=== PATIENT | female | born 1935 | race Caucasian/White ===

== ENCOUNTER → 2018-12-10 | Outpatient (CLI) | payer MEDICARE ==
--- NOTE | 2018-12-10 15:43 | Diagnostic Imaging Report ---
INDICATION: Back pain for three months. TIME OF EXAM: 3:06 PM FINDINGS: Three views lumbar spine were obtained. Curvature and alignment is normal. Vertebral body heights are well-maintained. No acute compression fracture is seen. There is generalized degenerative disc disease with variable disc space narrowing and marginal spurring. Abdominal aorta is calcified. There are multiple surgical clips in the abdomen. IMPRESSION: No acute bony abnormality is detected. Dictated by: Dictated on workstation # [id number]
== END ==
LOC: RAD FS 14:42
PROVIDERS: ATTEND Surgery
DX: M54.5 Low back pain (principal)
CPT/HCPCS: 72100

== ENCOUNTER → 2018-12-27 | Outpatient (CLI) | payer MEDICARE ==
[~2018-12-27] VITALS: Ht 167 cm; Wt 57.7 kg
[~2018-12-27] MED LIST: ASPI-586 PO; CLOP75TA69 PO; ROSU10TA22 PO
== END | disposition home or self-care (01) ==
LOC: PREOP 05:37
PROVIDERS: ATTEND Surgery
DX: Z01.818 Encounter for other preprocedural examination (principal)

== ENCOUNTER 2019-01-03 08:15 | Day surgery (SDC) | payer MEDICARE ==
[~2019-01-03] VITALS: Ht 167 cm; Wt 57.7 kg
[2019-01-03] MEDS ORDERED: LACTATED RINGERS 1,000 ML IV STA (08:44)
[2019-01-03] MEDS ORDERED: LACTATED RINGERS 1,000 ML IV ONE (08:46)
[2019-01-03 08:56] VITALS: BP 174/78
--- NOTE | 2019-01-03 09:24 | Progress Note-Pre Operative ---
Pre-Operative Progress Note H&P Reviewed The H&P was reviewed, patient examined and no changes noted. Time Seen by Provider: 09:18 Date H&P Reviewed: Jan 03, 2019 Time H&P Reviewed: 09:19 Pre-Operative Diagnosis: screening colonoscopy GEOVANI GRUBER DO Jan 03, 2019 09:23 POS
[2019-01-03] MEDS ORDERED: PROPOFOL INJECTION 50 ML IV ONE (10:56)
[2019-01-03] MEDS ORDERED: MIDAZOLAM 2 MG/2 ML (VERSED) VIAL ONE (10:56)
--- NOTE | 2019-01-03 11:14 | Progress Note-Post Operative ---
Post-Operative Progess Note Surgeon (s)/Supervisor Of Operations (s) Surgeon GEOVANI GRUBER DO Supervisor Of Operations: CHRISTIE Anguiano Pre-Operative Diagnosis screening colonoscopy Post-Operative Diagnosis poor prep int hemorrhoids Procedure & Operative Findings Date of Procedure 01/03/19 Procedure Performed/Findings colonoscopy Anesthesia Type IV sedation by IP ARCHITECT Estimated Blood Loss Estimated blood loss (mL): none Specimens/Packing Specimens Removed none GEOVANI GRUBER DO Jan 03, 2019 11:14 POS
[2019-01-03 11:15] VITALS: BP 168/74
[2019-01-03 11:20] VITALS: BP_SYST 184; BP_SYST 189; BP_DIAS 77
[2019-01-03 11:25] VITALS: BP 189/77
--- NOTE | 2019-01-03 11:26 | Endoscopy Discharge Instruct ---
Endo Procedure/Findings Findings 1.: Internal Hemorrhoids Discharge Instructions - Activity: You might feel a little sleepy until tomorrow. This is due to the me dicine you received to relax you. Until tomorrow, you should: NOT drive a car, operate machinery or power tools. NOT drink any alcoholic beverages. NOT make any important decisions or sign importortant papers. Do not return to work until tomorrow, unless otherwise instructed. Resume previous activities tomorrow. Diet: Start by taking liquids. If you tolerate liquids, advance to solid food. make an appointment for one week 1.: Colonoscopy in 1 year (or less) Notify Physician - If you experience excessive bleeding, unusual abdominal pain, fever, or chest pain, contact your doctor immediately. GEOVANI GRUBER DO Jan 03, 2019 11:26 POS
[2019-01-03 11:50] VITALS: BP 187/76
--- NOTE | 2019-01-03 11:57 | Anesthesia-General Post-Op ---
MAC Patient Condition Mental Status/LOC: Same as Preop Cardiovascular: Satisfactory Nausea/Vomiting: Absent Respiratory: Satisfactory Pain: Controlled Complications: Absent Post Op Complications Complications None Follow Up Care/Instructions Patient Instructions None needed. Anesthesiology Discharge Order Discharge Order Patient is doing well, no complaints, stable vital signs, no apparent adverse anesthesia problems. No complications reported per nursing. UNIQUE MARSHALL CRNA Jan 03, 2019 11:57 POS
[2019-01-03 12:03] VITALS: BP 187/76
--- NOTE | 2019-01-03 14:44 | OPERATIVE REPORT ---
DATE OF SERVICE: PREOPERATIVE DIAGNOSIS: Screening colonoscopy. POSTOPERATIVE DIAGNOSIS: Poor prep. PROCEDURES: Colonoscopy. SURGEON: Abner Collier DO. FLUTE TEACHER: Reese Ayala MS3. SPECIMENS: None. BLOOD LOSS: None. FLUIDS: Per anesthesia. POSTOPERATIVE CONDITION: Stable. INDICATION FOR PROCEDURE: The patient is an 83-year-old female, who needed a screening colonoscopy. FINDINGS: Unfortunately, the patient did not had an incomplete prep, lot of retained fecal material and some thick pieces, unable to clear this out. I will need a repeat colonoscopy within a year or less. PROCEDURE NOTE: After informed consent was obtained, the patient was brought to the endoscopy suite, placed in left lateral decubitus position. She was administered IV sedation by the NARROW GAUGE BRAKEMAN, who then monitored her vitals the entire time, heart rate, blood pressure and pulse ox and the scope was inserted. Immediately upon entry, noted a lot of retained fecal material covering the gonzalez able to wash some of it off and all of it and then could not suction it all up because of large pieces of fecal material, elected to push passes to see if we could get up. There is some clear areas, got up actually all the way to pass the hepatic flexure, but again we got into the ascending colon just a lot of fecal material covering the gonzalez, again could not clear all off and suctioned it all up. So at this point, withdrew the scope, insufflating to attempt to look at the gonzalez, looking at the ascending colon, hepatic flexure, transverse colon, splenic flexure, descending colon, sigmoid and rectum, again just too much retained fecal material. Did see some small hemorrhoids on the way out, took a picture of this and removed the scope. The patient tolerated the procedure, recovered in endoscopy suite. Job ID: [id number] DocumentID: [id number] Dictated Date: 01/03/2019 11:50:05 Amphibian Crewmember Date: 01/03/2019 14:43:49 Dictated By: ABNER COLLIER DO
== END 2019-01-03 12:04 | disposition home or self-care (01) ==
LOC: ENDO 08:15
PROVIDERS: ATTEND Surgery
DX: Z12.11 Encounter for screening for malignant neoplasm of colon (principal); K64.8 Other hemorrhoids; E78.5 Hyperlipidemia, unspecified; F17.210 Nicotine dependence, cigarettes, uncomplicated; Z79.82 Long term (current) use of aspirin; Z79.02 Long term (current) use of antithrombotics/antiplatelets

== ENCOUNTER → 2019-02-21 | Outpatient (CLI) | payer MEDICARE | END | disposition home or self-care (01) | LOC: PREOP 05:40 | PROVIDERS: ATTEND Surgery | DX: Z01.818 Encounter for other preprocedural examination (principal) ==

== ENCOUNTER → 2019-08-29 | Outpatient (CLI) | payer MEDICARE ==
--- NOTE | 2019-08-29 10:50 | Diagnostic Imaging Report ---
PROCEDURE: CT head without contrast. TECHNIQUE: Multiple contiguous axial images were obtained through the brain without the use of intravenous contrast. Auto Exposure Controls were utilized during the CT exam to meet ALARA standards for radiation dose reduction. INDICATION: Memory loss. No prior studies are available for comparison. Ventricles and sulci appear appropriate for the patient's age. There is fairly significant periventricular white matter changes consistent with chronic microvascular ischemia. Age-indeterminate lacunar infarcts bilateral basal ganglia are noted. There is no midline shift. No acute intra-axial or extra-axial hemorrhage is detected. Cisterns are patent. Visualized paranasal sinuses are clear. IMPRESSION: Chronic changes. No acute intracranial process is detected. Dictated by: Dictated on workstation # [id number]
== END ==
LOC: RAD FS 10:14
PROVIDERS: ATTEND Family Medicine
DX: R41.3 Other amnesia (principal)
CPT/HCPCS: 70450

== ENCOUNTER 2019-09-03 17:18 | Emergency (ER) | payer MEDICARE ==
[~2019-09-03] VITALS: Ht 167.7 cm; Wt 57.7 kg
--- OUTSIDE RECORDS SUMMARY | 2019-09-03 17:23 | XMS REPORT | Continuity of Care Document ---
Author Organization Unknown Address Unknown Phone Unavailable Allergies Active Description Code Type Severity Reaction Onset Reported/Identified Relationship to Patient Clinical Status Yes No Known Drug Allergies [id number] Drug Allergy Unknown N/A 12/27/2018 Medications There is no data. Problems Date Dx Coded Attending Type Code Diagnosis Diagnosed By 12/14/2018 GEOVANI GRUBER DO B Ot M54.5 LOW BACK PAIN 12/27/2018 RICH GRUBER DOIC B Ot M54.5 LOW BACK PAIN 12/27/2018 ALLYN DO GEOVANI B Ot M54.5 LOW BACK PAIN 12/27/2018 ALLYN FIELDS GEOVANI B Ot M54.5 LOW BACK PAIN 12/28/2018 GEOVANI GRUBER DO B Ot Z01.8 18 ENCOUNTER FOR OTHER PREPROCEDURAL EXAMIN 01/03/2019 ALLYN FIELDS GEOVANI B Ot Z01.8 18 ENCOUNTER FOR OTHER PREPROCEDURAL EXAMIN 01/03/2019 RICH GRUBER DOIC B Ot M54.5 LOW BACK PAIN 01/03/2019 GEOVANI GRUBER DO B Ot E78.5 HYPERLIPIDEMIA, UNSPECIFIED 01/03/2019 RICH GRUBER DOIC B Ot 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, CIGARETTES, UNCOMPL 01/03/2019 GEOVANI GRUBER DO B Ot K64.8 OTHER HEMORRHOIDS 01/03/2019 GEOVANI GRUBER DO B Ot Z12.1 1 ENCOUNTER FOR SCREENING FOR MALIGNANT NE 01/03/2019 RICH GRUBER DOIC B Ot Z79.0 2 MCC (CURRENT) USE OF ANTITHROMBOTI 01/03/2019 GEOVAIN GRUBER DO B Ot Z79.8 2 INDEPENDENT DRIVER (CURRENT) USE OF ASPIRIN 01/06/2019 RICH GRUBER DOIC B Ot Z01.8 18 ENCOUNTER FOR OTHER PREPROCEDURAL EXAMIN 01/06/2019 RICH GRUBER DOIC B Ot Z01.8 18 ENCOUNTER FOR OTHER PREPROCEDURAL EXAMIN 01/10/2019 GEOVANI GRUBER DO B Ot E78.5 HYPERLIPIDEMIA, UNSPECIFIED 01/10/2019 ALLYN FIELDS, GEOVANI B Ot 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, CIGARETTES, UNCOMPL 01/10/2019 ALLYN FIELDS, GEOVANI B Ot K64.8 OTHER HEMORRHOIDS 01/10/2019 ALLYN FIELDS, GEOVANI B Ot Z12.1 1 ENCOUNTER FOR SCREENING FOR MALIGNANT NE 01/10/2019 ALLYN FIELDS, GEOVANI B Ot Z79.0 2 MCC (CURRENT) USE OF ANTITHROMBOTI 01/10/2019 ALLYN FIELDS, GEOVANI B Ot Z79.8 2 MCC (CURRENT) USE OF ASPIRIN 02/23/2019 ALLYN FIELDS, GEOVANI B Ot Z01.8 18 ENCOUNTER FOR OTHER PREPROCEDURAL EXAMIN 02/23/2019 ALLYN DO, GEOVANI B Ot Z01.8 18 ENCOUNTER FOR OTHER PREPROCEDURAL EXAMIN 02/23/2019 ALLYN DO, GEOVANI B Ot M54.5 LOW BACK PAIN 02/23/2019 ALLYN FIELDS, GEOVANI B Ot Z01.8 18 ENCOUNTER FOR OTHER PREPROCEDURAL EXAMIN 06/03/2019 ALLYN DO, GEOVANI B Ot Z01.8 18 ENCOUNTER FOR OTHER PREPROCEDURAL EXAMIN 06/03/2019 ALLYN DO, GEOVANI B Ot M54.5 LOW BACK PAIN 06/03/2019 ALLYN DO, GEOVANI B Ot Z01.8 18 ENCOUNTER FOR OTHER PREPROCEDURAL EXAMIN 08/29/2019 ALLYN DO, GEOVANI B Ot Z01.8 18 ENCOUNTER FOR OTHER PREPROCEDURAL EXAMIN 08/29/2019 ALLYN DO, GEOVANI B Ot M54.5 LOW BACK PAIN 08/29/2019 ALINADRAGOON DO, GEOVANI B Ot Z01.8 18 ENCOUNTER FOR OTHER PREPROCEDURAL EXAMIN 08/31/2019 YENIFER JOHN, TYSHAWN Tobias Ot R41.3 OTHER AMNESIA Procedures There is no data. Results Test Result Range CBC - 05/20/18 09:00 WHITE BLOOD CELL COUNT 7.0 Thousand/uL 3 .8-10.8 RED BLOOD CELL COUNT 4.15 Million/uL 3.8 0-5.10 HEMOGLOBIN 12.7 g/dL 11.7-15.5 HEMATOCRIT 37.8 % 35.0-45.0 MCV 91.1 fL 80.0-100.0 MCH 30.6 pg 27.0-33.0 MCHC 33.6 g/dL 32.0-36.0 RDW 12.7 % 11.0-15.0 PLATELET COUNT 188 Thousand/uL 140-400 MPV 10.6 fL 7.5-12.5 ABSOLUTE NEUTROPHILS 4648 cells/uL 1500- 7800 ABSOLUTE LYMPHOCYTES 1617 cells/uL 850-3 900 ABSOLUTE MONOCYTES 658 cells/uL 200-950 ABSOLUTE EOSINOPHILS 49 cells/uL 15-500 ABSOLUTE BASOPHILS 28 cells/uL 0-200 NEUTROPHILS 66.4 % NRG LYMPHOCYTES 23.1 % NRG MONOCYTES 9.4 % NRG EOSINOPHILS 0.7 % NRG BASOPHILS 0.4 % NRG VITAMIN B12/FOLATE, SERUM PANEL - 09:00 VITAMIN B12 494 pg/mL 200-1100 FOLATE, SERUM 7.2 ng/mL NRG LIPID PANEL - 09/10/18 10:36 CHOLESTEROL, TOTAL 186 mg/dL <200 HDL CHOLESTEROL 48 mg/dL >50 TRIGLYCERIDES 105 mg/dL <150 LDL-CHOLESTEROL 117 mg/dL (calc) NRG CHOL/HDLC RATIO 3.9 (calc) <5.0 NON HDL CHOLESTEROL 138 mg/dL (calc) <13 0 CMP - 09/10/18 10:36 GLUCOSE 97 mg/dL 65-99 UREA NITROGEN (BUN) 13 mg/dL 7-25 CREATININE 0.82 mg/dL 0.60-0.88 eGFR NON-AFR. CYMRO 67 mL/min/1.73m2 > OR = 60 eGFR 77 mL/min/1.73m2 > OR = 60 BUN/CREATININE RATIO NOT APPLICABLE (calc) 6-22 SODIUM 139 mmol/L 135-146 POTASSIUM 4.0 mmol/L 3.5-5.3 CHLORIDE 108 mmol/L 98-110 CARBON DIOXIDE 25 mmol/L 20-32 CALCIUM 9.0 mg/dL 8.6-10.4 PROTEIN, TOTAL 6.4 g/dL 6.1-8.1 ALBUMIN 4.0 g/dL 3.6-5.1 GLOBULIN 2.4 g/dL (calc) 1.9-3.7 ALBUMIN/GLOBULIN RATIO 1.7 (calc) 1.0-2. 5 BILIRUBIN, TOTAL 0.3 mg/dL 0.2-1.2 ALKALINE PHOSPHATASE 66 U/L 33-130 AST 11 U/L 10-35 ALT 8 U/L 6-29 CBC - 09/10/18 10:36 WHITE BLOOD CELL COUNT 6.5 Thousand/uL 3 .8-10.8 RED BLOOD CELL COUNT 4.01 Million/uL 3.8 0-5.10 HEMOGLOBIN 11.6 g/dL 11.7-15.5 HEMATOCRIT 37.3 % 35.0-45.0 MCV 93.0 fL 80.0-100.0 MCH 28.9 pg 27.0-33.0 MCHC 31.1 g/dL 32.0-36.0 RDW 13.2 % 11.0-15.0 PLATELET COUNT 201 Thousand/uL 140-400 MPV 10.4 fL 7.5-12.5 ABSOLUTE NEUTROPHILS 3640 cells/uL 1500- 7800 ABSOLUTE LYMPHOCYTES 2113 cells/uL 850-3 900 ABSOLUTE MONOCYTES 520 cells/uL 200-950 ABSOLUTE EOSINOPHILS 189 cells/uL 15-500 ABSOLUTE BASOPHILS 39 cells/uL 0-200 NEUTROPHILS 56 % NRG LYMPHOCYTES 32.5 % NRG MONOCYTES 8.0 % NRG EOSINOPHILS 2.9 % NRG BASOPHILS 0.6 % NRG COMMENT(S) NRG LIPID PANEL - 11/19/18 10:04 CHOLESTEROL, TOTAL 194 mg/dL <200 HDL CHOLESTEROL 48 mg/dL >50 TRIGLYCERIDES 119 mg/dL <150 LDL-CHOLESTEROL 123 mg/dL (calc) NRG CHOL/HDLC RATIO 4.0 (calc) <5.0 NON HDL CHOLESTEROL 146 mg/dL (calc) <13 0 CMP - 11/19/18 10:04 GLUCOSE 83 mg/dL 65-99 UREA NITROGEN (BUN) 12 mg/dL 7-25 CREATININE 0.73 mg/dL 0.60-0.88 eGFR NON-AFR. CYMRO 77 mL/min/1.73m2 > OR = 60 eGFR 89 mL/min/1.73m2 > OR = 60 BUN/CREATININE RATIO NOT APPLICABLE (calc) 6-22 SODIUM 142 mmol/L 135-146 POTASSIUM 4.2 mmol/L 3.5-5.3 CHLORIDE 109 mmol/L 98-110 CARBON DIOXIDE 26 mmol/L 20-32 CALCIUM 9.0 mg/dL 8.6-10.4 PROTEIN, TOTAL 6.4 g/dL 6.1-8.1 ALBUMIN 3.9 g/dL 3.6-5.1 GLOBULIN 2.5 g/dL (calc) 1.9-3.7 ALBUMIN/GLOBULIN RATIO 1.6 (calc) 1.0-2. 5 BILIRUBIN, TOTAL 0.4 mg/dL 0.2-1.2 ALKALINE PHOSPHATASE 62 U/L 33-130 AST 12 U/L 10-35 ALT 8 U/L 6-29 CBC - 11/19/18 10:04 WHITE BLOOD CELL COUNT 6.6 Thousand/uL 3 .8-10.8 RED BLOOD CELL COUNT 4.10 Million/uL 3.8 0-5.10 HEMOGLOBIN 12.3 g/dL 11.7-15.5 HEMATOCRIT 37.7 % 35.0-45.0 MCV 92.0 fL 80.0-100.0 MCH 30.0 pg 27.0-33.0 MCHC 32.6 g/dL 32.0-36.0 RDW 12.6 % 11.0-15.0 PLATELET COUNT 209 Thousand/uL 140-400 MPV 10.5 fL 7.5-12.5 ABSOLUTE NEUTROPHILS 3670 cells/uL 1500- 7800 ABSOLUTE LYMPHOCYTES 2185 cells/uL 850-3 900 ABSOLUTE MONOCYTES 614 cells/uL 200-950 ABSOLUTE EOSINOPHILS 79 cells/uL 15-500 ABSOLUTE BASOPHILS 53 cells/uL 0-200 NEUTROPHILS 55.6 % NRG LYMPHOCYTES 33.1 % NRG MONOCYTES 9.3 % NRG EOSINOPHILS 1.2 % NRG BASOPHILS 0.8 % NRG CBC - 06/20/19 09:16 WHITE BLOOD CELL COUNT 6.1 Thousand/uL 3 .8-10.8 RED BLOOD CELL COUNT 4.09 Million/uL 3.8 0-5.10 HEMOGLOBIN 12.0 g/dL 11.7-15.5 HEMATOCRIT 37.1 % 35.0-45.0 MCV 90.7 fL 80.0-100.0 MCH 29.3 pg 27.0-33.0 MCHC 32.3 g/dL 32.0-36.0 RDW 12.9 % 11.0-15.0 PLATELET COUNT 170 Thousand/uL 140-400 MPV 11.0 fL 7.5-12.5 ABSOLUTE NEUTROPHILS 3538 cells/uL 1500- 7800 ABSOLUTE LYMPHOCYTES 1885 cells/uL 850-3 900 ABSOLUTE MONOCYTES 567 cells/uL 200-950 ABSOLUTE EOSINOPHILS 79 cells/uL 15-500 ABSOLUTE BASOPHILS 31 cells/uL 0-200 NEUTROPHILS 58 % NRG LYMPHOCYTES 30.9 % NRG MONOCYTES 9.3 % NRG EOSINOPHILS 1.3 % NRG BASOPHILS 0.5 % NRG Encounters ACCT No. Visit Date/Time Discharge Status Pt. Type Provider Facility Loc./Unit Complaint [id number] 09/01/2019 12:54:00 09/01/2019 23:59 :00 DIS Outpatient BELLA MADDOX [id number] 08/29/2019 10:14:00 23:59:[address] MD [facility] RAD FS MEMORY LOSS [id number] 02/28/2019 09:40:00 23:59:59 CLS Preadmit DELMAN DO, GEOVANI B [facility] ENDO SCREENING [id number] 02/21/2019 05:40:00 23:59:59 CLS Outpatient DELMAN DO, GEOVANI B [facility] PREOP COLONOSCOPY [id number] 01/03/2019 08:15:00 12:04:00 DIS Outpatient DELMAN DO, GEOVANI B [facility] ENDO SCREENING [id number] 12/27/2018 05:37:00 23:59:59 CLS Outpatient DELMAN DO, GEOVANI B [facility] PREOP COLONOSCOPY [id number] 12/10/2018 14:42:00 23:59:59 CLS Outpatient DELMAN DO, GEOVANI B [facility] RAD FS [id number] 08/24/2019 08:30:00 08/24/2019 23:59: [address] [facility] [id number] 06/20/2019 08:00:00 Document Registration [id number] 11/19/2018 09:00:00 Document Registration [id number] 09/10/2018 10:30:00 Document Registration [id number] 05/20/2018 08:30:00 Document Registration
[2019-09-03 17:51] LABS: HEMATOCRIT 38 % (35-52); HEMOGLOBIN 12.6 G/DL (11.5-16.0); MEAN CORPUSCULAR HEMOGLOBIN 31 PG (25-34); WHITE BLOOD COUNT 7.9 10^3/uL (4.3-11.0)
[2019-09-03 17:52] LABS: BASOPHILS # (AUTO) 0.1 10^3/uL (0.0-0.1); BASOPHILS % (AUTO) 1 % (0-10); EOSINOPHILS # (AUTO) 0.1 10^3/uL (0.0-0.3); EOSINOPHILS % (AUTO) 1 % (0-10); LYMPHOCYTES % (AUTO) 38 % (12-44); MEAN CORPUSCULAR HGB CONC 33 G/DL (32-36); MEAN CORPUSCULAR VOLUME 93 FL (80-99); MEAN PLATELET VOLUME 10.2 FL (7.4-10.4); MONOCYTES # (AUTO) 0.9 X 10^3 (0.0-1.0); MONOCYTES % (AUTO) 11 % (0-12); NEUTROPHILS # (AUTO) 3.9 X 10^3 (1.8-7.8); NEUTROPHILS % (AUTO) 49 % (42-75); PLATELET COUNT 189 10^3/uL (130-400)
[2019-09-03 17:59] LABS: BILIRUBIN,URINE NEGATIVE (NEGATIVE); CLARITY,URINE CLEAR; COLOR,URINE YELLOW; GLUCOSE, URINE (UA) NEGATIVE (NEGATIVE); KETONES,URINE TRACE (NEGATIVE); NITRITE,URINE NEGATIVE (NEGATIVE); PH,URINE 6.5 (5-9); PROTEIN,URINE NEGATIVE (NEGATIVE)
[2019-09-03 18:00] LABS: BACTERIA,URINE FEW /HPF; HYALINE CASTS, URINE RARE /LPF; LEUKOCYTE ESTERASE ,URINE NEGATIVE (NEGATIVE); WBC,URINE 0-2 /HPF
--- NOTE | 2019-09-03 18:15 | Diagnostic Imaging Report ---
INDICATION: Recent memory loss, lost feeling in right hand. EXAMINATION: CT brain without contrast, 09/03/2019. All CT scans use one or more of the following dose optimizing techniques: automated exposure control, MA and/or KvP adjustment based on patient size and exam type or iterative reconstruction. COMPARISON: 08/29/2019. FINDINGS: There are scattered chronic ischemic changes in a periventricular distribution in the deep white matter. Old lacunar infarcts are noted within the left basal ganglia, similar to previous imaging. No acute hemorrhage or infarct appreciated. No mass, mass effect or midline shift. No hydrocephalus. Paranasal sinuses and mastoid air cells are clear. IMPRESSION: Chronic change. No acute abnormality. Dictated by: Dictated on workstation # [id number]
[2019-09-03 18:17] LABS: POTASSIUM 3.9 MMOL/L (3.6-5.0); SODIUM 140 MMOL/L (135-145)
[2019-09-03 18:18] LABS: ALANINE AMINOTRANSFERASE 12 U/L (0-55); ALBUMIN 4.3 GM/DL (3.2-4.5); ALKALINE PHOSPHATASE 83 U/L (40-136); BILIRUBIN,TOTAL 0.3 MG/DL (0.1-1.0); BUN/CREATININE RATIO 15; CALCIUM 9.3 MG/DL (8.5-10.1); CARBON DIOXIDE 25 MMOL/L (21-32); CHLORIDE 104 MMOL/L (98-107); CREATININE SERUM 0.92 MG/DL (0.60-1.30); GFR ESTIMATED 58; GLUCOSE 106 MG/DL (70-105); MAGNESIUM 2.1 MG/DL (1.6-2.4); TOTAL PROTEIN 6.7 GM/DL (6.4-8.2)
--- NOTE | 2019-09-03 18:35 | ED General ---
General Chief Complaint: Neuro-Stroke Like Symptoms Stated Complaint: NUMBNESS IN RT HAND Nursing Triage Note: Patient presents to ED reporting unable to remember her thoughts for last couple days and had R hand numbness for 2 months intermittantly. Pt reports under extreme stress of deaths of dgt and [id number]-[id number] in June. Pt states she may need a "nerve" pill. Pt had been pre-op work up at beginning of [facility] to have surgeries for poor blood flow in legs Nursing Sepsis Screen: No Definite Risk Source of Information: Patient History of Present Illness Date Seen by Provider: Sep 03, 2019 Time Seen by Provider: 18:00 Initial Comments Patient is an 84-year-old female with history of COPD presents with multiple medical complaints. Patient reports short-term memory forgetfulness and intermittent right hand numbness 2 months. Patient was evaluated by her PCP earlier this week for the same and had an outpatient CT. Patient is unsure of the results. She denies headache, change in vision, neck pain, extremity weakness or loss of sensation that is new. Denies shortness of breath, gait instability, loss of balance or other strokelike symptoms. Reports chronic constipation. No fever chills, sweats. No chest pain palpitations, abdominal pain. No urinary frequency urgency dysuria. Patient does report depression due to the recent of her daughter and lack of ability to Grieve attend due to pandemic restrictions. Timing/Duration: 1 Day, Other Severity: Mild Associated Systoms: Cough Allergies and Home Medications Allergies Coded Allergies: No Known Drug Allergies (Unverified , 12/27/18) Home Medications Aspirin 81 Mg Tablet.dr, 81 MG PO DAILY, (Reported) Clopidogrel Bisulfate 75 Mg Tablet, 75 MG PO DAILY, (Reported) Rosuvastatin Calcium 10 Mg Tablet, 10 MG PO DAILY, (Reported) Patient Home Medication List Home Medication List Reviewed: Yes Review of Systems Review of Systems Constitutional: see HPI EENTM: see HPI Respiratory: see HPI Cardiovascular: see HPI Gastrointestinal: see HPI Genitourinary: see HPI Musculoskeletal: see HPI Skin: see HPI Psychiatric/Neurological: See HPI Hematologic/Lymphatic: See HPI Immunological/Allergic: see HPI Past Uxsuwss-Ewmrzg-Eeqtqs Hx Past Med/Social Hx: Reviewed Nursing Past Med/Soc Hx Patient Social History Alcohol Use: Denies Use Number of Drinks Today: GG Alcohol Beverage of Choice: Whiskey Recreational Drug Use: No Type Used: Cigarettes 2nd Hand Smoke Exposure: Yes Recent Foreign Travel: No Contact w/Someone Who Travel: No Recent Infectious Disease Expo: No Recent Hopitalizations: No Physical Abuse: No Sexual Abuse: No Mistreated: No Fear: No Seasonal Allergies Seasonal Allergies: Yes Past Medical History Surgeries: Yes (LEFT CAROTID ARTERY, BILAT TKR, HEART SURGERY) Vascular Surgery Respiratory: No Cardiac: Yes (PERIPHERAL VASCULAR DISEASE) High Cholesterol Neurological: No Sexually Transmitted Disease: No HIV/AIDS: No Genitourinary: No Gastrointestinal: Yes Chronic Constipation Musculoskeletal: Yes Arthritis Endocrine: No HEENT: Yes (GLASSES, DENTURES) Loss of Vision: Denies Hearing Impairment: Hard of Hearing, Bilateral Hearing Aide Cancer: No Psychosocial: No Integumentary: No Blood Disorders: No Adverse Reaction/Blood Tranf: No (HAS HAD BLOOD WITH NO REACTION) Physical Exam Vital Signs Vital Signs - First Documented 09/03/19 17:25 Temp 37.2 Pulse 71 Resp 12 B/P (MAP) 179/57 (97) Pulse Ox 97 O2 Delivery Room Air Capillary Refill : Less Than 3 Seconds Height, Weight, BMI Height: '" Weight: lbs. oz. kg; 20.00 BMI Method: General Appearance: Anxious Eyes: Bilateral Eye Normal Inspection, Bilateral Eye PERRL, Bilateral Eye EOMI HEENT: PERRL/EOMI, Pharynx Normal, Moist Mucous Membranes Neck: Non Tender, Supple Respiratory: Chest Non Tender, Lungs Clear, Decreased Breath Sounds Cardiovascular: Regular Rate, Rhythm Gastrointestinal: Non Tender, Soft Back: Normal Inspection Neurologic/Psychiatric: Alert, Oriented x3, Normal Mood/Affect, senior water resources engineer II-XII Norm as Tested, Other (NIH stroke score 15 per nurse stroke assessment) Skin: Normal Color, Warm/Dry Focused Exam Sepsis Stage: Ruled Out Progress/Results/Core Measures Suspected Sepsis Recent Fever Within 48 Hours: No Infection Criteria Present: None New/Unexplained Altered Menta: No Sepsis Screen: No Definite Risk SIRS Temperature: Pulse: 71 Respiratory Rate: 12 Laboratory Tests 09/03/19 17:40: White Blood Count 7.9 Blood Pressure 179 /57 Mean: 97 Laboratory Tests 09/03/19 17:40: Creatinine 0.92, Platelet Count 189, Total Bilirubin 0.3 Results/Orders Lab Results Laboratory Tests Test 09/03/19 17:35 7/18/20 17:40 Range/Units Urine Color YELLOW Urine Clarity CLEAR Urine pH 6.5 5-9 Urine Specific [place] 1.020 1.016-1.022 Urine Protein NEGATIVE NEGATIVE Urine Glucose (UA) NEGATIVE NEGATIVE Urine Ketones TRACE H NEGATIVE Urine Nitrite NEGATIVE NEGATIVE Urine Bilirubin NEGATIVE NEGATIVE Urine Urobilinogen 1.0 < = 1.0 MG/DL Urine Leukocyte Esterase NEGATIVE NEGATIVE Urine RBC (Auto) NEGATIVE NEGATIVE Urine RBC NONE /HPF Urine WBC 0-2 /HPF Urine Squamous Epithelial Cells 2-5 /HPF Urine Crystals NONE /LPF Urine Bacteria FEW H /HPF Urine Casts PRESENT /LPF Urine Hyaline Casts RARE /LPF Urine Mucus MODERATE H /LPF Urine Culture Indicated NO White Blood Count 7.9 4.3-11.0 10^3/uL Red Blood Count 4.12 L 4.35-5.85 10^6/uL Hemoglobin 12.6 11.5-16.0 G/DL Hematocrit 38 35-52 % Mean Corpuscular Volume 93 80-99 FL Mean Corpuscular Hemoglobin 31 25-34 PG Mean Corpuscular Hemoglobin Concent 33 32-36 G/DL Red Cell Distribution Width 14.0 10.0-14.5 % Platelet Count 189 130-400 10^3/uL Mean Platelet Volume 10.2 7.4-10.4 FL Neutrophils (%) (Auto) 49 42-75 % Lymphocytes (%) (Auto) 38 12-44 % Monocytes (%) (Auto) 11 0-12 % Eosinophils (%) (Auto) 1 0-10 % Basophils (%) (Auto) 1 0-10 % Neutrophils # (Auto) 3.9 1.8-7.8 X 10^3 Lymphocytes # (Auto) 3.0 1.0-4.0 X 10^3 Monocytes # (Auto) 0.9 0.0-1.0 X 10^3 Eosinophils # (Auto) 0.1 0.0-0.3 10^3/uL Basophils # (Auto) 0.1 0.0-0.1 10^3/uL Sodium Level 140 135-145 MMOL/L Potassium Level 3.9 3.6-5.0 MMOL/L Chloride Level 104 98-107 MMOL/L Carbon Dioxide Level 25 21-32 MMOL/L Anion Gap 11 5-14 MMOL/L Blood Urea Nitrogen 14 7-18 MG/DL Creatinine 0.92 0.60-1.30 MG/DL Estimat Glomerular Filtration Rate 58 BUN/Creatinine Ratio 15 Glucose Level 106 H 70-105 MG/DL Calcium Level 9.3 8.5-10.1 MG/DL Corrected Calcium 9.1 8.5-10.1 MG/DL Magnesium Level 2.1 1.6-2.4 MG/DL Total Bilirubin 0.3 0.1-1.0 MG/DL Aspartate Amino Transf (AST/SGOT) 16 5-34 U/L Alanine Aminotransferase (ALT/SGPT) 12 0-55 U/L Alkaline Phosphatase 83 40-136 U/L Troponin I < 0.30 <0.30 NG/ML Total Protein 6.7 6.4-8.2 GM/DL Albumin 4.3 3.2-4.5 GM/DL My Orders Orders - ADOLFO BAXTER DO Ua Culture If Indicated (09/03/19 17:34) Cbc With Automated Diff (09/03/19 17:34) Comprehensive Metabolic Panel (09/03/19 17:34) Troponin I Fs (09/03/19 17:34) Thyroid Stimulating Hormone (09/03/19 17:34) Magnesium (09/03/19 17:34) Ct Head Wo (09/03/19 17:34) Ekg Tracing (09/03/19 17:34) Vital Signs/I&O 09/03/19 17:25 Temp 37.2 Pulse 71 Resp 12 B/P (MAP) 179/57 (97) Pulse Ox 97 O2 Delivery Room Air Capillary Refill : Less Than 3 Seconds Blood Pressure Mean: 97 Departure Communication (Admissions) EKG: Reviewed Chest x-ray: No acute cardiopulmonary disease. CT head: No acute findings per radiology report Impression Primary Impression: Memory loss Additional Impressions: Depression Chronic constipation Disposition: HOME, SELF-CARE Condition: Stable Departure-Patient Inst. Decision time for Depature: 18:36 Referrals: TYSHAWN [address]RE[address] MD (PCP/Family) Primary Care Physician Patient Instructions: Depression, Adult (DC), Amnesia Add. Discharge Instructions: You were evaluated in the emergency department for multiple medical complaints. CT, EKG and lab work were obtained or nondiagnostic. The exact cause of your symptoms has not been determined. Please follow-up with your PCP for review of ED labs and studies an for treatment of chronic constipation and evaluation for possible depression. In the meantime, 1-2 bottles of magnesium citrate as patient. Return to the ED if new or worsening symptoms. All discharge instructions reviewed with patient and/or family. Voiced understanding. ADOLFO BAXTER DO Sep 03, 2019 18:34
[2019-09-03 18:41] VITALS: BP 126/82
== END 2019-09-03 18:41 | disposition home or self-care (01) ==
LOC: EDUNIT# 17:18 → ER FS 17:19
DX: R41.3 Other amnesia (principal); F32.9 Major depressive disorder, single episode, unspecified; K59.09 Other constipation; E78.00 Pure hypercholesterolemia, unspecified; Z77.22 Contact with and (suspected) exposure to environmental tobacco smoke (acute) (chronic); Z79.82 Long term (current) use of aspirin
CPT/HCPCS: 36415; 70450; 80053; 81000; 83735; 84443; 84484; 85025; 93005

== ENCOUNTER → 2019-09-07 | Outpatient (CLI) | payer MEDICARE ==
[~2019-09-07] MED LIST changes: +CATHETER FLUSH 10 ML SYR IV PRN; +HOLD METFORMIN - RECEIVED CONTRAST 20 ML VIAL IV SCH; +IOHEXOL 350 MG/ML 100 ML (OMNIPAQUE 350) VIAL IV ONE; +NS 100 ML (IVPB) BAG IV ONE
[2019-09-07 08:03] LABS: BUN/CREATININE RATIO 13; CREATININE SERUM 0.82 MG/DL (0.60-1.30); GFR ESTIMATED > 60
--- NOTE | 2019-09-07 10:08 | Diagnostic Imaging Report ---
PROCEDURE: CT angiography of the head and CT angiography of the neck with and without contrast. TECHNIQUE: Contiguous noncontrast images were obtained from the skull base through the vertex. After intravenous contrast administration, helical CT angiography of the neck was performed. Source data was reformatted into 3D MIP projections. Delayed post contrast acquisition was also obtained. Auto Exposure Controls were utilized during the CT exam to meet ALARA standards for radiation dose reduction. INDICATION: Transient ischemic attack and right-sided weakness. FINDINGS: The precontrast head CT demonstrates the ventricles and sulci to be appropriate for the patient's age. There is moderate periventricular hypodensity noted, consistent with chronic microvascular ischemia. 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 There is no sulcal effacement or midline shift. No acute intra-axial or extra-axial hemorrhage is detected. Delayed post contrast imaging through the brain is without abnormal enhancement. Both common carotid arteries are widely patent. There is a moderate amount of calcified plaque at the right carotid bifurcation but no high-grade stenosis is identified. The left carotid bifurcation is unremarkable. Both internal carotid arteries are widely patent. There is some calcified plaque at the carotid siphons bilaterally but no stenosis is identified. The bilateral middle cerebral arteries are widely patent without evidence of filling defect. The bilateral anterior cerebral arteries are widely patent. The bilateral posterior cerebral arteries are widely patent. The basilar artery is patent. The vertebral arteries appear to be codominant. No stenosis or occlusion is identified. IMPRESSION: There is calcified plaque in both carotid systems, greatest at the right carotid bifurcation. No high-grade stenosis is identified. No large branch occlusion is detected. Dictated by: Dictated on workstation # [id number]
== END ==
LOC: RAD FS 07:18
PROVIDERS: ATTEND Psychiatry & Neurology Neurology
DX: G45.9 Transient cerebral ischemic attack, unspecified (principal); I25.10 Atherosclerotic heart disease of native coronary artery without angina pectoris
CPT/HCPCS: 36415; 70496; 70498; 82565; 84520

== ENCOUNTER → 2019-11-01 | Outpatient (CLI) | payer MEDICARE ==
[~2019-11-01] MED LIST changes: -CATHETER FLUSH 10 ML SYR IV PRN; -HOLD METFORMIN - RECEIVED CONTRAST 20 ML VIAL IV SCH; -IOHEXOL 350 MG/ML 100 ML (OMNIPAQUE 350) VIAL IV ONE; -NS 100 ML (IVPB) BAG IV ONE
--- NOTE | 2019-11-01 14:28 | Diagnostic Imaging Report ---
EXAMINATION: Acute abdomen series at 2:04 PM. INDICATION: Abdominal pain, constipation. FINDINGS: The accompanying erect PA chest shows the heart size to be within normal limits. Dense mitral valve calcifications are evident. There are mild chronic pulmonary changes evident but there is no sign of failure, pneumonia, or pleural effusion. There is no pneumoperitoneum identified either. The mediastinum is not widened. Supine and erect views of the abdomen were obtained. There is some gas in both the large and small bowel in a nonspecific fashion. There is no evidence for a bowel obstruction. There does seem to be a moderate amount of fecal material within the colon. There is no mass or organomegaly identified. The osseous structures are intact. Numerous surgical clips are seen overlying the lumbar spine and each hip joint. IMPRESSION: 1. The bowel gas pattern is nonspecific. There is no acute abnormality identified. 2. There is a moderate amount of fecal material within the colon. 3. There is no acute cardiopulmonary abnormality appreciated. Dictated by: Dictated on workstation # [id number]
== END ==
LOC: RAD FS 13:46
PROVIDERS: ATTEND Family Medicine
DX: K59.01 Slow transit constipation (principal); R10.9 Unspecified abdominal pain; Z98.890 Other specified postprocedural states
CPT/HCPCS: 74022

== ENCOUNTER → 2019-12-19 | Outpatient (CLI) | payer MEDICARE | LOC: CARD 13:30 | PROVIDERS: ATTEND Internal Medicine Cardiovascular Disease | DX: I25.10 Atherosclerotic heart disease of native coronary artery without angina pectoris (principal); I10 Essential (primary) hypertension; I08.3 Combined rheumatic disorders of mitral, aortic and tricuspid valves; I65.23 Occlusion and stenosis of bilateral carotid arteries; E78.2 Mixed hyperlipidemia; I77.89 Other specified disorders of arteries and arterioles; Z72.0 Tobacco use | CPT/HCPCS: 93306 ==

== ENCOUNTER 2020-04-20 17:27 | Inpatient (IN) | payer MEDICARE ==
[~2020-04-20] VITALS: Ht 167.7 cm; Wt 50.3 kg
--- NOTE | 2020-04-20 18:22 | ED Integumentary General ---
General Stated Complaint: LEFT BIG TOE INFECTION Source: patient Exam Limitations: no limitations History of Present Illness Date Seen by Provider: Apr 20, 2020 Time Seen by Provider: 18:15 Initial Comments Patient is an 84-year-old female who presents to the emergency department today telling us that she has osteomyelitis in her left great toe. Patient states that she has been fighting an infection in her left great toe since the beginning of March. Patient states that she has been seeing her primary care practitioner and had a "fungus" worked on on her toenail. She states after that she has been on a couple rounds of antibiotics and then she saw her primary care physician today Dr. Filemon Jang and had x-rays and they called her and told her to come to the hospital for admission because she has osteomyelitis. Patient complains of some pain in the toe area especially with manipulation and movement. She states she has been taking Tylenol which is helped alleviate her discomfort. She states she has been a little bit nauseated but denies vomiting or diarrhea. Patient states that she is not a diabetic. She states the foot has gotten progressively red and warm over the last several days. All other review of systems reviewed and negative except as stated. Timing/Duration: getting worse Location: feet (Left great toe) Associated Symptoms: denies symptoms Allergies and Home Medications Allergies Coded Allergies: No Known Drug Allergies (Unverified , 12/27/18) Home Medications Aspirin 81 Mg Tablet.dr, 81 MG PO DAILY, (Reported) Clopidogrel Bisulfate 75 Mg Tablet, 75 MG PO DAILY, (Reported) Rosuvastatin Calcium 10 Mg Tablet, 10 MG PO DAILY, (Reported) Patient Home Medication List Home Medication List Reviewed: Yes Review of Systems Review of Systems Constitutional: see HPI EENTM: no symptoms reported Respiratory: no symptoms reported Cardiovascular: no symptoms reported Gastrointestinal: nausea Genitourinary: no symptoms reported Musculoskeletal: joint pain (Left great toe), joint swelling Skin: change in color (Increasing redness over the left great toe foot and lower leg) All Other Systems Reviewed Negative Unless Noted: Yes Past Yzobhnu-Rawglo-Gflqcl Hx Patient Social History Alcohol Beverage of Choice: Whiskey Type Used: Cigarettes 2nd Hand Smoke Exposure: Yes Recent Hopitalizations: No Seasonal Allergies Seasonal Allergies: Yes Past Medical History Surgeries: Yes (LEFT CAROTID ARTERY, BILAT TKR, HEART SURGERY) Vascular Surgery Respiratory: No Cardiac: Yes (PERIPHERAL VASCULAR DISEASE) High Cholesterol Neurological: No Sexually Transmitted Disease: No HIV/AIDS: No Genitourinary: No Gastrointestinal: Yes Chronic Constipation Musculoskeletal: Yes Arthritis Endocrine: No HEENT: Yes (GLASSES, DENTURES) Loss of Vision: Denies Hearing Impairment: Hard of Hearing, Bilateral Hearing Aide Cancer: No Psychosocial: No Integumentary: No Blood Disorders: No Adverse Reaction/Blood Tranf: No (HAS HAD BLOOD WITH NO REACTION) Physical Exam Vital Signs Vital Signs - First Documented 04/20/20 18:11 Temp 36.4 Pulse 65 Resp 17 B/P (MAP) 179/62 (101) Pulse Ox 96 O2 Delivery Room Air Capillary Refill : General Appearance: WD/WN, no apparent distress Neck: non-tender, full range of motion, supple Cardiovascular: regular rate, rhythm, systolic murmur (Blowing holosystolic murmur consistent with aortic stenosis) Respiratory: lungs clear, normal breath sounds Gastrointestinal: non tender, soft Extremities: other (Patient has significant erythema and swelling over the left great toe with erythema extending from the toe into the dorsum of the foot and up the distal leg, there is increased warmth to the left lower extremity) Neurologic/Psychiatric: alert, normal mood/affect, oriented x 3 Skin: warm/dry, other (Erythema) Skin Problem Location: lower extremities (Left leg) Skin Problem Character: drainage (Patient has an open blister that is draining to the lateral aspect of the midpoint of the great toe) Progress/Results/Core Measures Results/Orders Lab Results Laboratory Tests Test 04/20/20 18:27 Range/Units White Blood Count 8.7 4.3-11.0 10^3/uL Red Blood Count 3.65 L 3.80-5.11 10^6/uL Hemoglobin 11.3 L 11.5-16.0 g/dL Hematocrit 35 35-52 % Mean Corpuscular Volume 96 80-99 fL Mean Corpuscular Hemoglobin 31 25-34 pg Mean Corpuscular Hemoglobin Concent 32 32-36 g/dL Red Cell Distribution Width 13.1 10.0-14.5 % Platelet Count 203 130-400 10^3/uL Mean Platelet Volume 10.5 9.0-12.2 fL Immature Granulocyte % (Auto) 0 % Neutrophils (%) (Auto) 55 42-75 % Lymphocytes (%) (Auto) 33 12-44 % Monocytes (%) (Auto) 10 0-12 % Eosinophils (%) (Auto) 1 0-10 % Basophils (%) (Auto) 1 0-10 % Neutrophils # (Auto) 4.8 1.8-7.8 10^3/uL Lymphocytes # (Auto) 2.9 1.0-4.0 10^3/uL Monocytes # (Auto) 0.9 0.0-1.0 10^3/uL Eosinophils # (Auto) 0.1 0.0-0.3 10^3/uL Basophils # (Auto) 0.0 0.0-0.1 10^3/uL Immature Granulocyte # (Auto) 0.0 0.0-0.1 10^3/uL Erythrocyte Sedimentation Rate 5 0-30 MM/HR Prothrombin Time 14.4 12.2-14.7 SEC INR Comment 1.1 0.8-1.4 Activated Partial Thromboplast Time 30 24-35 SEC Sodium Level 140 135-145 MMOL/L Potassium Level 3.9 3.6-5.0 MMOL/L Chloride Level 108 H 98-107 MMOL/L Carbon Dioxide Level 24 21-32 MMOL/L Anion Gap 8 5-14 MMOL/L Blood Urea Nitrogen 21 H 7-18 MG/DL Creatinine 0.70 0.60-1.30 MG/DL Estimat Glomerular Filtration Rate > 60 BUN/Creatinine Ratio 30 Glucose Level 97 70-105 MG/DL Lactic Acid Level 0.77 0.50-2.00 MMOL/L Calcium Level 9.0 8.5-10.1 MG/DL Corrected Calcium 9.2 8.5-10.1 MG/DL Total Bilirubin 0.4 0.1-1.0 MG/DL Aspartate Amino Transf (AST/SGOT) 12 5-34 U/L Alanine Aminotransferase (ALT/SGPT) 11 0-55 U/L Alkaline Phosphatase 75 40-136 U/L C-Reactive Protein High Sensitivity 0.05 0.00-0.50 MG/DL Total Protein 6.3 L 6.4-8.2 GM/DL Albumin 3.7 3.2-4.5 GM/DL My Orders Orders - SHILO BENZ MD Cbc With Automated Diff (04/20/20 18:34) Comprehensive Metabolic Panel (04/20/20 18:34) Blood Culture (04/20/20 18:34) Protime With Inr (04/20/20 18:34) Partial Thromboplastin Time (04/20/20 18:34) Ed Iv/Invasive Line Start (04/20/20 18:34) Ed Iv/Invasive Line Start (04/20/20 18:34) Vital Signs Adult Sepsis Patie Q15M (04/20/20 18:34) O2 (04/20/20 18:34) Remove Rings In Anticipation O (04/20/20 18:34) Lactic Acid Analyzer (04/20/20 18:34) Foot, Left, 3 Views (04/20/20 18:34) Hs C Reactive Protein (04/20/20 18:34) Wound Culture (04/20/20 18:34) Vancomycin Injection (Vancomycin Injecti (04/20/20 18:45) Erythrocyte Sedimentation Rate (04/20/20 18:37) Hydrocodone/Apap 5/325 Tablet (Lortab 5 (04/20/20 20:15) Hydralazine Injection (Apresoline Inject (04/20/20 21:00) Medications Given in ED Current Medications Medications Dose Ordered Sig/Kaela Route Start Time Stop Time Status Last Admin Dose Admin Acetaminophen/ Hydrocodone Bitart 0.5 ea ONCE ONCE PO 04/20/20 20:15 04/20/20 20:16 DC 04/20/20 20:14 0.5 EA Vancomycin HCl 1000 mg/Sodium Chloride 250 ml @ 250 mls/hr ONCE ONCE IV 04/20/20 18:45 04/20/20 19:44 DC 04/20/20 20:13 250 MLS/HR Vital Signs/I&O 04/20/20 18:11 Temp 36.4 Pulse 65 Resp 17 B/P (MAP) 179/62 (101) Pulse Ox 96 O2 Delivery Room Air Progress Progress Note : Time: 21:01 Progress Note Patient seen and evaluated, 84-year-old with a chief complaint of "osteomyelitis" in her left foot. Evaluation today includes a septic work-up with x-rays of the left foot which do demonstrate changes consistent with osteomyelitis of the distal phalanx of the left great toe. Patient is notably hypertensive here in the emergency department. She is treated with 5 mg of hydralazine. Pain is controlled with hydrocodone. Patient is started on IV vancomycin in the department. Case is discussed with Dr. Gamble who accepts the patient for admission. Departure Communication (Admissions) Time/Spoke to Admitting Phy: 20:[address] Gamble on for [facility] who accepts the patient for admission Impression Primary Impression: Osteomyelitis of great toe of left foot Disposition: ADMITTED INPATIENT Condition: Stable Admissions Decision to Admit Reason: Admit from ER (General) Decision to Admit/Date: Apr 20, 2020 Time/Decision to Admit Time: 20:04 Departure-Patient Inst. Referrals: [facility]RE[facility] MD (PCP/Family) Primary Care Physician SHILO BENZ MD Apr 20, 2020 18:22
[2020-04-20 18:42] LABS: BASOPHILS % (AUTO) 1 % (0-10); EOSINOPHILS # (AUTO) 0.1 10^3/uL (0.0-0.3); EOSINOPHILS % (AUTO) 1 % (0-10); HEMATOCRIT 35 % (35-52); HEMOGLOBIN 11.3 g/dL (11.5-16.0); LYMPHOCYTES # (AUTO) 2.9 10^3/uL (1.0-4.0); LYMPHOCYTES % (AUTO) 33 % (12-44); MEAN CORPUSCULAR HEMOGLOBIN 31 pg (25-34); MEAN CORPUSCULAR HGB CONC 32 g/dL (32-36); MEAN CORPUSCULAR VOLUME 96 fL (80-99); MEAN PLATELET VOLUME 10.5 fL (9.0-12.2); MONOCYTES # (AUTO) 0.9 10^3/uL (0.0-1.0); MONOCYTES % (AUTO) 10 % (0-12); NEUTROPHILS # (AUTO) 4.8 10^3/uL (1.8-7.8); NEUTROPHILS % (AUTO) 55 % (42-75); PLATELET COUNT 203 10^3/uL (130-400); WHITE BLOOD COUNT 8.7 10^3/uL (4.3-11.0)
[2020-04-20] MEDS ORDERED: VANCOMYCIN INJECTION 1,000 MG in NS (IVPB) 250 ML IV ONE (18:45)
[2020-04-20 18:48] LABS: INR 1.1 (0.8-1.4); PROTHROMBIN TIME PATIENT 14.4 SEC (12.2-14.7)
[2020-04-20 19:04] LABS: ALBUMIN 3.7 GM/DL (3.2-4.5); CHLORIDE 108 MMOL/L (98-107); POTASSIUM 3.9 MMOL/L (3.6-5.0); SODIUM 140 MMOL/L (135-145)
[2020-04-20 19:06] LABS: GLUCOSE 97 MG/DL (70-105)
[2020-04-20 19:07] LABS: TOTAL PROTEIN 6.3 GM/DL (6.4-8.2)
[2020-04-20 19:08] LABS: BILIRUBIN,TOTAL 0.4 MG/DL (0.1-1.0); CARBON DIOXIDE 24 MMOL/L (21-32)
[2020-04-20 19:10] LABS: ALKALINE PHOSPHATASE 75 U/L (40-136); GFR ESTIMATED > 60
[2020-04-20 19:11] LABS: BUN/CREATININE RATIO 30
[2020-04-20 19:13] LABS: ALANINE AMINOTRANSFERASE 11 U/L (0-55)
[2020-04-20 19:45] LABS: ERYTHROCYTE SEDIMENTATION RATE 5 MM/HR (0-30)
--- NOTE | 2020-04-20 20:06 | Diagnostic Imaging Report ---
INDICATION: Left toe infection 3 views of left foot show osteolytic change of the distal phalanx. There is also some osteal lucency of the head of the distal phalanx. There is a well-circumscribed sonolucent area in head of the 1st metatarsal. IMPRESSION: Osteolytic changes of the distal phalanx suspicious for osteomyelitis. Questionable early osteomyelitis in the distal aspect of the proximal phalanx. Dictated by: Dictated on workstation # [id number]
[2020-04-20] MEDS ORDERED: HYDROcodone/APAP 5 MG/325 MG (LORTAB) TAB PO ONE (20:15)
[2020-04-20] MEDS ORDERED: hydrALAZINE (APESOLINE) 20 MG/ML VIAL IV ONE (21:00)
[2020-04-20] MEDS ORDERED: ONDANSETRON 4 MG/2 ML (SDV) Z0FRAN ONE (21:05)
[2020-04-20] MEDS ORDERED: ONDANSETRON 4 MG/2 ML (SDV) Z0FRAN IVP ONE (21:15)
[2020-04-20 21:35] VITALS: BP 159/67
[2020-04-20] MEDS ORDERED: CATHETER FLUSH 10 ML SYR IV PRN (23:30)
[2020-04-20 23:49] VITALS: BP 137/69
[2020-04-21] VITALS (7 sets, daily range): BP systolic 137–220; BP diastolic 60–88
[2020-04-21 05:12] LABS: BASOPHILS % (AUTO) 0 % (0-10); EOSINOPHILS # (AUTO) 0.1 10^3/uL (0.0-0.3); EOSINOPHILS % (AUTO) 1 % (0-10); HEMATOCRIT 34 % (35-52); LYMPHOCYTES # (AUTO) 2.6 10^3/uL (1.0-4.0); LYMPHOCYTES % (AUTO) 36 % (12-44); MEAN CORPUSCULAR HEMOGLOBIN 31 pg (25-34); MEAN CORPUSCULAR HGB CONC 33 g/dL (32-36); MEAN CORPUSCULAR VOLUME 96 fL (80-99); MEAN PLATELET VOLUME 10.9 fL (9.0-12.2); MONOCYTES # (AUTO) 0.8 10^3/uL (0.0-1.0); MONOCYTES % (AUTO) 11 % (0-12); NEUTROPHILS # (AUTO) 3.7 10^3/uL (1.8-7.8); NEUTROPHILS % (AUTO) 51 % (42-75); PLATELET COUNT 187 10^3/uL (130-400); WHITE BLOOD COUNT 7.2 10^3/uL (4.3-11.0)
[2020-04-21] MEDS: ACETAMINOPHEN 325 MG TABLET PO PRN ×3 (05:45→21:32)
[2020-04-21] MEDS: CATHETER FLUSH 10 ML SYR IV SCH ×3 (06:37→20:20)
[2020-04-21] MEDS: CARVEDILOL 6.25 MG (COREG) TAB PO SCH ×2 (09:04→20:19)
[2020-04-21] MEDS: amLODIPine 5 MG (NORVASC) TAB PO SCH (09:04)
--- NOTE | 2020-04-21 10:36 | History & Physical-Hospitalist ---
History of Present Illness HPI/Chief Complaint Patient is admitted with osteomyelitis of the left great toe. She began having problems with that toe several years ago secondary to fungus. Not seen her c consultant in about a year until March 19. It was trimmed at that time and she began having increased erythema inflammation and pain in it afterwards. It progressed where she had cellulitis of the toe and of the leg upon admission yesterday x-ray reveals osteomyelitis of the distal phalanx. Is admitted for definitive care. And antibiotics Source: patient Exam Limitations: no limitations Date Seen 04/21/20 Time Seen by a Provider: 09:15 Attending Physician Jigna Gamble MD PCP Jonathan Garza MD Referring Physician Date of Admission Apr 20, 2020 at 20:59 Home Medications & Allergies Home Medications Reviewed patient Home Medication Reconciliation performed by pharmacy medication reconciliations critical care technician and/or nursing. Patients Allergies have been reviewed. Allergies Allergies Coded Allergies No Known Drug Allergies (Lozrxvcsag41/11/19) Past Mfpsyzy-Exnakq-Invvgu Hx Past Med/Social Hx: Reviewed Nursing Past Med/Soc Hx Patient Social History Marrital Status: Employed/Student: retired Alcohol Use: Occasionally Uses Alcohol Beverage of Choice: Whiskey Recreational Drug Use: No Smoking Status: Current Everyday Smoker Type Used: Cigarettes 2nd Hand Smoke Exposure: Yes Recent Foreign Travel: No Contact w/other who traveled: No Recent Hopitalizations: No Recent Infectious Disease Expo: No Immunizations Up To Date Tetanus Booster (TDap): Unknown Seasonal Allergies Seasonal Allergies: Yes Past Medical History Surgeries: Vascular Surgery Cardiac: Coronary Artery Disease, High Cholesterol, Peripheral Vascular Sexually Transmitted Disease: No HIV/AIDS: No Gastrointestinal: Chronic Constipation Musculoskeletal: Arthritis Loss of Vision: Denies Hearing Impairment: Hard of Hearing, Bilateral Hearing Aide History of Blood Disorders: No Adverse Reaction to Blood Roman: No (HAS HAD BLOOD WITH NO REACTION) Family History No Pertinent Family Hx Review of Systems Constitutional: see HPI EENTM: no symptoms reported Respiratory: no symptoms reported Cardiovascular: no symptoms reported Gastrointestinal: constipation Musculoskeletal: other (foot pain) Skin: other (redness) Psychiatric/Neurological: Other (memory loss) Physical Exam Physical Exam Vital Signs Vital Signs - First Documented 04/20/20 18:11 Temp 36.4 Pulse 65 Resp 17 B/P (MAP) 179/62 (101) Pulse Ox 96 O2 Delivery Room Air Capillary Refill : Less Than 3 Seconds Height, Weight, BMI Height: '" Weight: lbs. oz. kg; 17.88 BMI Method: General Appearance: No Apparent Distress, Thin HEENT: Normal ENT Inspection Neck: Non Tender, Limited Range of Motion Respiratory: Normal Breath Sounds, No Accessory Muscle Use, No Respiratory Distress, Decreased Breath Sounds Cardiovascular: Regular Rate, Rhythm, Systolic Murmur (04/21) Gastrointestinal: Normal Bowel Sounds, Soft Back: Normal Inspection Extremity: No Pedal Edema, Other (tares nail,left great toe with onchymycosis and erythema and blister) Neurologic/Psychiatric: Alert, Oriented x3, Normal Mood/Affect Skin: Normal Color, Warm/Dry Results Results/Procedures Labs Laboratory Tests 04/20/20 18:27 04/21/20 04:15 04/22/20 04:28 Patient resulted labs reviewed. Imaging: Reviewed Imaging Films Assessment/Plan Admission Diagnosis Osteomyelitis left great toe Systolic murmur Peripheral vascular disease with previous intervention Admission Status: Inpatient Order (span 2 midnights) Reason for Inpatient Admission: Patient will will require surgical consultation and cardiology consultation for anticipation of having a surgical invention in a patient with peripheral vascular disease and comorbidities JIGNA GAMBLE MD Apr 21, 2020 10:36
[2020-04-21] MEDS: CLOPIDOGREL 75 MG (PLAVIX) TABLET PO SCH (10:40)
[2020-04-21] MEDS: LOSARTAN 25 MG (COZAAR) TAB PO SCH (10:40)
[2020-04-21] MEDS ORDERED: PATIENT MAY USE OWN MED,SINGLE MED PO SCH ×2 (13:30)
[2020-04-21] MEDS: ROSUVASTATIN 20 MG (CRESTOR) TABLET PO SCH (20:19)
[2020-04-21] MEDS: VANCOMYCIN INJECTION 750 MG in NS (IVPB) 250 ML IV SCH (20:19)
[2020-04-21] MEDS: polyethylene glycoL POWDER 17 GM (MIRALAX) PACK PO SCH (20:19)
--- NOTE | 2020-04-21 22:24 | CONSULTATION REPORT ---
DATE OF SERVICE: ADMITTING PHYSICIAN: Jigna Gamble MD ATTENDING PRIMARY CARE PHYSICIAN: Jonathan Garza MD HISTORY OF PRESENT ILLNESS: The patient is an 84-year-old female who has been having trouble with her left great toe. She has been dealing with issues with a fungal infection; however, more recently, she developed redness, swelling, erythema and pain. She was seen in the Emergency Department and an x-ray was performed, which did show osteolytic changes of the left first phalanx consistent with osteomyelitis and was admitted and placed on IV antibiotics. She does not report any systemic symptoms of fever, no chills. PAST MEDICAL HISTORY: Peripheral vascular disease, coronary artery disease, hypercholesterolemia, degenerative joint disease, constipation, hearing loss. PAST SURGICAL HISTORY: None. ALLERGIES: No known drug allergies. MEDICATIONS: Aspirin 81 mg daily, Plavix 75 mg daily, Rosuvastatin 10 mg daily, amlodipine 5 mg daily, Losartan 25 mg daily. SOCIAL HISTORY: Positive smoke. Positive alcohol. FAMILY HISTORY: Noncontributory. VITAL SIGNS: Temperature 36.3, blood pressure 145/64, pulse 61, respirations 18, pulse ox 96% on room air. REVIEW OF SYSTEMS: Well-nourished female currently in no acute distress. She is not experiencing any shortness of breath, no difficulty in breathing. No chest pain, palpitations, diaphoresis. No nausea, vomiting. No diarrhea or constipation. No fever, chills, no recent inadvertent weight loss. All other review of systems negative. PHYSICAL EXAMINATION: CHEST: A few scattered rales bilaterally. HEART: Regular and no murmurs. EXTREMITIES: No lower extremity edema, negative Homans sign. HEENT: No scleral icterus. NECK: No cervical lymphadenopathy. ABDOMEN: Soft, nontender, nondistended. SKIN: Along the right great toe has a significant amount of swelling as well as chronic inflammatory changes as well as hyperkeratosis. ASSESSMENT AND PLAN: An 84-year-old female with left great toe osteomyelitis. We will continue her on antibiotics; however, the risk of recurrent infection is high due to the infection of the bone as well as history of peripheral vascular disease, hypertension and hypercholesterolemia. RECOMMENDATIONS: To proceed with a left great toe amputation and if she is amenable to this, we will proceed with scheduling this procedure. Job ID: [id number] DocumentID: [id number] Dictated Date: 04/21/2020 22:04:12 Compensation Advisor Date: 04/21/2020 22:23:32 Dictated By: YANELI MEEHAN MD
[2020-04-22] MEDS: CATHETER FLUSH 10 ML SYR IV SCH ×3 (04:42→19:43)
[2020-04-22] MEDS: ACETAMINOPHEN 325 MG TABLET PO PRN ×3 (04:42→19:43)
[2020-04-22 05:00] LABS: BASOPHILS % (AUTO) 0 % (0-10); EOSINOPHILS # (AUTO) 0.1 10^3/uL (0.0-0.3); EOSINOPHILS % (AUTO) 1 % (0-10); HEMATOCRIT 33 % (35-52); HEMOGLOBIN 10.5 g/dL (11.5-16.0); LYMPHOCYTES # (AUTO) 2.1 10^3/uL (1.0-4.0); LYMPHOCYTES % (AUTO) 30 % (12-44); MEAN CORPUSCULAR HEMOGLOBIN 31 pg (25-34); MEAN CORPUSCULAR HGB CONC 32 g/dL (32-36); MEAN CORPUSCULAR VOLUME 96 fL (80-99); MEAN PLATELET VOLUME 10.6 fL (9.0-12.2); MONOCYTES # (AUTO) 0.8 10^3/uL (0.0-1.0); MONOCYTES % (AUTO) 11 % (0-12); NEUTROPHILS % (AUTO) 58 % (42-75); PLATELET COUNT 171 10^3/uL (130-400); WHITE BLOOD COUNT 6.9 10^3/uL (4.3-11.0)
[2020-04-22 05:10] LABS: ALBUMIN 3.1 GM/DL (3.2-4.5); CHLORIDE 109 MMOL/L (98-107); POTASSIUM 4.2 MMOL/L (3.6-5.0); SODIUM 139 MMOL/L (135-145)
[2020-04-22 05:11] LABS: CALCIUM 8.2 MG/DL (8.5-10.1)
[2020-04-22 05:12] LABS: GLUCOSE 85 MG/DL (70-105); TOTAL PROTEIN 5.2 GM/DL (6.4-8.2)
[2020-04-22 05:13] LABS: CARBON DIOXIDE 23 MMOL/L (21-32)
[2020-04-22 05:14] LABS: BILIRUBIN,TOTAL 0.4 MG/DL (0.1-1.0)
[2020-04-22 05:15] LABS: ALKALINE PHOSPHATASE 63 U/L (40-136)
[2020-04-22 05:16] LABS: CREATININE SERUM 0.69 MG/DL (0.60-1.30); GFR ESTIMATED > 60
[2020-04-22 05:17] LABS: BUN/CREATININE RATIO 17
[2020-04-22 05:19] LABS: ALANINE AMINOTRANSFERASE 12 U/L (0-55)
[2020-04-22 07:36] VITALS: BP 178/49
[2020-04-22] MEDS: LOSARTAN 25 MG (COZAAR) TAB PO SCH (09:15)
[2020-04-22] MEDS: amLODIPine 5 MG (NORVASC) TAB PO SCH (09:16)
[2020-04-22] MEDS: CLOPIDOGREL 75 MG (PLAVIX) TABLET PO SCH (09:16)
[2020-04-22] MEDS: CARVEDILOL 6.25 MG (COREG) TAB PO SCH (09:16)
--- NOTE | 2020-04-22 10:25 | Progress Note-Pre Operative ---
Pre-Operative Progress Note H&P Reviewed The H&P was reviewed, patient examined and no changes noted. Date Seen by Provider: Apr 22, 2020 Time Seen by Provider: 10:30 Date H&P Reviewed: Apr 22, 2020 Time H&P Reviewed: 10:30 Pre-Operative Diagnosis: left great toe osteomyelitis YANELI MEEHAN MD Apr 22, 2020 10:25
--- NOTE | 2020-04-22 11:17 | Progress Note - Hospitalist ---
Subjective HPI/CC On Admission Date Seen by Provider: Apr 22, 2020 Time Seen by Provider: 10:10 Patient is admitted with osteomyelitis of the left great toe. She began having problems with that toe several years ago secondary to fungus. Not seen her director of user experience in about a year until March 19. It was trimmed at that time and she began having increased erythema inflammation and pain in it afterwards. It progressed where she had cellulitis of the toe and of the leg upon admission yesterday x-ray reveals osteomyelitis of the distal phalanx. Is admitted for definitive care. And antibiotics Subjective/Events-last exam Patient is without complaint this morning. She said she slept well last night. Does not remember seeing cardiology, but relates that Dr. Ledbetter is planning to do an amputation which she is looking forward to. She tenuous to complain of pain in her toe. Denies any other complaint. Review of Systems Musculoskeletal: foot pain Focused Exam Lactate Level 04/20/20 18:27: Lactic Acid Level 0.77 Objective Exam Vital Signs Vital Signs Date Time Temp Pulse Resp B/P (MAP) Pulse Ox O2 Delivery O2 Flow Rate FiO2 04/22/20 08:06 99 Room Air 04/22/20 07:36 36.6 57 16 178/49 (92) Capillary Refill : Less Than 3 Seconds General Appearance: Chronically ill, Thin Neck: Normal Inspection, Non Tender Respiratory: Chest Non Tender, Lungs Clear, Normal Breath Sounds, No Accessory Muscle Use, No Respiratory Distress Cardiovascular: Regular Rate, Rhythm, Systolic Murmur (04/21) Gastrointestinal: Normal Bowel Sounds, Non Tender, Soft Back: Normal Inspection Extremity: No Pedal Edema, Slow Capillary Refill, Other (Toe with erythema and blistering) Neurologic/Psychiatric: Alert, No Motor/Sensory Deficits, Normal Mood/Affect Skin: Normal Color, Warm/Dry Results/Procedures Lab Laboratory Tests 04/22/20 04:28 Patient resulted labs reviewed. Imaging: Reviewed Imaging Films Assessment/Plan Assessment and Plan Assess & Plan/Chief Complaint Osteomyelitis of the left great toe-probable resection Thursday or Thursday appreciate Dr. Ledbetter's help Peripheral vascular disease Hypertension Coronary artery disease by history-cardiology consult pending would appreciate clearance for surgery Systolic murmur consistent with aortic stenosis-judged to be moderate by ech ocardiogram Mild memory loss without delirium CARMELLA GOFF MD Apr 22, 2020 11:17
[2020-04-22 11:33] VITALS: BP 105/60
--- NOTE | 2020-04-22 15:12 | Consultation-Cardiology ---
HPI-Cardiology Cardiology Consultation: Date of Consultation 04/22/20 Date of Admission Attending Physician Jigna Gamble MD Admitting Physician Jonathan Garza MD Consulting Physician Christopher SANCHEZ MD HPI: Time Seen by a Provider: 15:06 Chief Complaint: left great toe osteomyelitis This is a 84 year old lady with history of active smoking, PAD, carotid disease, AAA with graft who presents with painful left toe. working diagnosis of left great toe osteomyelitis. likely amputation. no chest pain or shortness of breath. Review of Systems-Cardiology Review of Systems Constitutional: As described under HPI; No As described under HPI, No no symptoms reported, No chills, No fever, No lightheadedness Eyes: No As described under HPI, No no symptoms reported, No blindness, No blurred vision, No contact lenses, No drainage, No decreased acuity, No foreign body sensation, No pain, No vision change Ears/Nose/Throat: No As described under HPI, No no symptoms reported, No chronic hearing loss, No ear discharge, No ear pain, No nasal drainage, No ulcerations Respiratory: No no symptoms reported; As described under HPI; No As described under HPI, No cough, No orthopnea, No shortness of breath, No SOB with excertion Cardiovascular: No no symptoms reported; As described under HPI; No As described under HPI, No chest pain, No edema, No irregular heart rate, No lightheadedness, No palpitations Gastrointestinal: No no symptoms reported, No As described under HPI, No abdomen distended, No abdominal pain, No blood streaked bowels, No constipation, No diarrhea, No nausea, No vomiting, No stool coloration changes Genitourinary: No As described under HPI, No burning, No dysuria, No discharge, No frequency, No flank pain, No hematuria, No urgency : Yes : No Skin: No rash; other (left great toe erythema and wound); No skin related problems, No ulcerations Psychiatric/Neurological: No anxiety, No depression, No seizure, No focal weakness, No syncope Hematologic: No bleeding abnormalities All Other Systems Reviewed Negative Unless Noted: Yes KLD-[id number]-Kioqrc Hx Patient Social History Marrital Status: Employed/Student: retired Smoking Status: Current Everyday Smoker 2nd Hand Smoke Exposure: Yes Have you traveled recently?: No Alcohol Use?: No Pt feels they are or have been: No Tobacco type used: Cigarettes Immunizations Up To Date Tetanus Booster (TDap): Unknown Past Medical History PMH As described under Assessment. Allergies and Home Medications Allergies Coded Allergies: No Known Drug Allergies (Unverified , 12/27/18) Home Medications Aspirin 81 Mg Tablet.dr, 81 MG PO DAILY, (Reported) Clopidogrel Bisulfate 75 Mg Tablet, 75 MG PO DAILY, (Reported) Rosuvastatin Calcium 10 Mg Tablet, 10 MG PO DAILY, (Reported) Patient Home Medication List Home Medication List Reviewed: Yes Physical Exam-Cardiology Physical Exam Vital Signs/I&O 04/22/20 04/22/20 04/22/20 04/22/20 07:36 08:00 08:06 11:33 Temp 36.6 36.4 Pulse 57 60 Resp 16 18 B/P (MAP) 178/49 (92) 105/60 (75) Pulse Ox 99 99 98 O2 Delivery Room Air Room Air Room Air Room Air 04/22/20 00:00 Intake Total 900 ml Balance 900 ml Capillary Refill : Less Than 3 Seconds Constitutional: appears stated age, AAO x 3; No apparent distress; well- developed, well-nourished HEENT: PERRL; No discharge; hearing is well preserved, oral hygience is good; No ulceration, No xanthelasmas are seen Neck: No carotid bruit; carotid pulses are 2 + bilaterally Respiratory: chest is bilaterally symmetric, lungs clear to auscultation Cardiovascular: regular rate-rhythm, S1 and S2, systolic murmur Gastrointestinal: soft, audible bowel sounds; No spleenomegaly Rectal: deferred Extremities: No clubbing, No cyanosis, No significant edema; wound Neurologic/Psychiatric: no motor/sensory deficits, alert, normal mood/affect, oriented x 3, power is 5/5 both on sides Skin: normal color; No rash, No ulcerations Data Review Labs Laboratory Tests 04/22/20 04:28: White Blood Count 6.9, Red Blood Count 3.43L, Hemoglobin 10.5L, Hematocrit 33L, Mean Corpuscular Volume 96, Mean Corpuscular Hemoglobin 31, Mean Corpuscular Hemoglobin Concent 32, Red Cell Distribution Width 12.9, Platelet Count 171, Mean Platelet Volume 10.6, Immature Granulocyte % (Auto) 0, Neutrophils (%) (Auto) 58, Lymphocytes (%) (Auto) 30, Monocytes (%) (Auto) 11, Eosinophils (%) (Auto) 1, Basophils (%) (Auto) 0, Neutrophils # (Auto) 4.0, Lymphocytes # (Auto) 2.1, Monocytes # (Auto) 0.8, Eosinophils # (Auto) 0.1, Basophils # (Auto) 0.0, Immature Granulocyte # (Auto) 0.0, Sodium Level 139, Potassium Level 4.2, Chloride Level 109H, Carbon Dioxide Level 23, Anion Gap 7, Blood Urea Nitrogen 12, Creatinine 0.69, Estimat Glomerular Filtration Rate > 60, BUN/Creatinine Ratio 17, Glucose Level 85, Calcium Level 8.2L, Corrected Calcium 8.9, Total Bilirubin 0.4, Aspartate Amino Transf (AST/SGOT) 14, Alanine Aminotransferase (ALT/SGPT) 12, Alkaline Phosphatase 63, Total Protein 5.2L, Albumin 3.1L Microbiology 04/20/20 Blood Culture - Preliminary, Resulted No growth A/P-Cardiology Assessment/Admission Diagnosis left great toe osteomyelitis, PAD, Carotid artery stenosis, AAA graft, Cardiovascular risk assessment, Active smoking, Moderate Plan left great toe osteomyelitis, likely amputation. defer to Dr Ledbetter. PAD, according to the patient, she has right lower extremity stents. no further info available. on plavix. she may benefit for vascular evaluation especially for healing stump post amputation. arterial ultrasound vs CTA. left Carotid artery stenosis, on plavix AAA graft, no records available but that seems to be the description she gave me. Cardiovascular risk assessment, she will be considered at low risk for major adverse cardiac events undergoing a low risk surgery (left great toe amputation). Active smoking, strongly suggested to quit. Moderate aortic stenosis. Thank you for your consultation. Please call me if you have any questions. Kyra Sanchez MD, FACP, FACC, FSCAI, FHRS, CCDS Interventional Cardiology Cardiac Electrophysiology Vascular Medicine and Endovascular Interventions Christopher SANCHEZ MD Apr 22, 2020 15:12
[2020-04-22 16:17] VITALS: BP 175/79
[2020-04-22] MEDS: CARVEDILOL 12.5 MG (COREG) TABLET PO SCH (19:43)
[2020-04-22] MEDS: VANCOMYCIN INJECTION 750 MG in NS (IVPB) 250 ML IV SCH (19:43)
[2020-04-22] MEDS: polyethylene glycoL POWDER 17 GM (MIRALAX) PACK PO SCH (19:43)
[2020-04-22] MEDS: ROSUVASTATIN 20 MG (CRESTOR) TABLET PO SCH (19:43)
[2020-04-22 20:29] VITALS: BP 156/70
[2020-04-22] MEDS ORDERED: CARVEDILOL 6.25 MG (COREG) TAB PO SCH (21:00)
[2020-04-23] VITALS: BP 147/65
[2020-04-23] MEDS ORDERED: HYDROcodone/APAP 5 MG/325 MG (LORTAB) TAB ONE (00:46)
[2020-04-23] MEDS: HYDROcodone/APAP 5 MG/325 MG (LORTAB) TAB PO PRN ×3 (00:53→22:19)
[2020-04-23] MEDS: CATHETER FLUSH 10 ML SYR IV SCH ×3 (04:10→20:53)
[2020-04-23 08:00] VITALS: BP 160/69
[2020-04-23] MEDS: CLOPIDOGREL 75 MG (PLAVIX) TABLET PO SCH (08:02)
[2020-04-23] MEDS: CARVEDILOL 12.5 MG (COREG) TABLET PO SCH ×2 (08:02→20:52)
[2020-04-23] MEDS: LOSARTAN 25 MG (COZAAR) TAB PO SCH (08:02)
[2020-04-23] MEDS: amLODIPine 5 MG (NORVASC) TAB PO SCH (08:02)
[2020-04-23] MEDS ORDERED: PIPERACILLIN/TAZOBACTAM (BULK) 4.5 GM in NS (IVPB) 100 ML IV NR (10:00)
--- NOTE | 2020-04-23 10:22 | Progress Note - Hospitalist ---
Subjective HPI/CC On Admission Date Seen by Provider: Apr 23, 2020 Patient is admitted with osteomyelitis of the left great toe. She began having problems with that toe several years ago secondary to fungus. Not seen her skimmer scoop operator in about a year until March 19. It was trimmed at that time and she began having increased erythema inflammation and pain in it afterwards. It progressed where she had cellulitis of the toe and of the leg upon admission yesterday x-ray reveals osteomyelitis of the distal phalanx. Is admitted for definitive care. And antibiotics Focused Exam Lactate Level 04/20/20 18:27: Lactic Acid Level 0.77 Objective Exam Vital Signs Vital Signs Date Time Temp Pulse Resp B/P (MAP) Pulse Ox O2 Delivery O2 Flow Rate FiO2 04/23/20 08:36 98 Room Air 04/23/20 08:00 36.3 59 20 160/69 (99) Capillary Refill : Less Than 3 Seconds Results/Procedures Lab Patient resulted labs reviewed. Imaging: Reviewed Imaging Films MELQUIADES CARDONA DO Apr 23, 2020 10:22
[2020-04-23] MEDS ORDERED: CARV6.252 PO (10:24)
[2020-04-23] MEDS ORDERED: ASPI-1238 PO (10:24)
[2020-04-23] MEDS ORDERED: LINA145C PO (10:24)
[2020-04-23] MEDS ORDERED: ROSU20TA32 PO (10:24)
[2020-04-23] MEDS ORDERED: ROSU20TA2 PO (10:24)
[2020-04-23] MEDS ORDERED: AMLO-250 PO (10:24)
--- NOTE | 2020-04-23 11:00 | Progress Note - Cardiology ---
Cardiology SOAP Progress Note Subjective: Lying in bed C/O left toe pain No c/o CP or SOB Expressed frustration with foot pain and multiple providers seeing her during her stay here Objective: I&O/Vital Signs 04/25/20 04/25/20 08:27 12:32 Temp 36.8 Pulse 62 Resp 20 B/P (MAP) 173/70 (104) Pulse Ox 96 96 O2 Delivery Room Air Room Air 04/25/20 00:00 Intake Total 2907.5 ml Balance 2907.5 ml Constitutional: appears stated age, AAO x 3, well-developed, other (thin) Respiratory: chest is bilaterally symmetric, lungs clear to auscultation Cardiovascular: regular rate-rhythm, S1 and S2, systolic murmur Gastrointestional: No tender; soft, audible bowel sounds Extremities: No clubbing; no lower extremity edema bilateral, wound (dressing to LLE not removed) Neurologic/Psychiatric: grossly intact (moves all extremities) Skin: other (see above) Results/Procedures: Labs Laboratory Tests 04/25/20 05:02: White Blood Count 6.3, Red Blood Count 3.31L, Hemoglobin 10.2L, Hematocrit 32L, Mean Corpuscular Volume 97, Mean Corpuscular Hemoglobin 31, Mean Corpuscular He moglobin Concent 32, Red Cell Distribution Width 13.0, Platelet Count 150, Mean Platelet Volume 10.9, Immature Granulocyte % (Auto) 0, Neutrophils (%) (Auto) 57, Lymphocytes (%) (Auto) 29, Monocytes (%) (Auto) 11, Eosinophils (%) (Auto) 2, Basophils (%) (Auto) 0, Neutrophils # (Auto) 3.6, Lymphocytes # (Auto) 1.9, Monocytes # (Auto) 0.7, Eosinophils # (Auto) 0.1, Basophils # (Auto) 0.0, Immature Granulocyte # (Auto) 0.0, Sodium Level 139, Potassium Level 3.9, Chloride Level 108H, Carbon Dioxide Level 23, Anion Gap 8, Blood Urea Nitrogen 7, Creatinine 0.74, Estimat Glomerular Filtration Rate > 60, BUN/Creatinine Ratio 9, Glucose Level 90, Calcium Level 8.3L, Corrected Calcium 8.9, Total Bilirubin 0.4, Aspartate Amino Transf (AST/SGOT) 17, Alanine Aminotransferase (ALT/SGPT) 17, Alkaline Phosphatase 72, Total Protein 5.4L, Albumin 3.3 Microbiology 04/24/20 Gram Stain - Final, Resulted 04/24/20 Anaerobic Culture, Resulted Pending 04/24/20 Surgical Culture, Resulted Pending 04/24/20 MRSA Screen - Final, Complete MRSA not isolated 04/20/20 Blood Culture - Preliminary, Resulted No growth A/P: Assessment: Left great toe osteomyelitis - managment per surgical/medical services PAD, according to the patient, she has right lower extremity stents - details unknown Carotid arterial dz with h/o L CEA by Dr. Whyte at [facility] in [place], [place] Possible AAA graft, no records available but that seems to be the description she gave me. Tobaccoism - cessation advised Plan: Documented h/o PAD and carotid arterial dz with possible AAA endograft [facility] [place] Left great toe osteomylitis - management per medical/surgical services Arterial doppler to eval peripheral perfusion Smoking cessation advised Monitor lab closely replace electrolytes as indicated Allowed her to vent her frustrations and answered her questions Reviewed Dr. Sanchez's notes from the weekend JAZMIN ARTIS Apr 23, 2020 11:00
--- NOTE | 2020-04-23 11:52 | Progress Note - Hospitalist ---
CLARISA KINCAID [facility] 04/23/20 1152: Subjective HPI/CC On Admission Time Seen by Provider: 09:35 Patient is admitted with osteomyelitis of the left great toe. She began having problems with that toe several years ago secondary to fungus. Not seen her pole tester in about a year until March 19. It was trimmed at that time and she began having increased erythema inflammation and pain in it afterwards. It progressed where she had cellulitis of the toe and of the leg upon admission yesterday x-ray reveals osteomyelitis of the distal phalanx. Is admitted for definitive care. And antibiotics Subjective/Events-last exam Vanessa was sitting in bed eating breakfast. She is pleasant. Denies Pain at this time. She states her pain is well controlled on current therapy. She feels a little better. Has not seen Anatoly Gamboa yet today. She is having BM and urinating without issue. Eating and drinking with issue. She has not been up and moving around. Left 1st toe is erythematous with minimal oozing noted. According to the patient it is not getting worse. She denies SOB, Chest pain, N/V, F/C, and any new aches or pains at this time. Review of Systems General: No Chills Pulmonary: No Dyspnea, No Cough Cardiovascular: No: Chest Pain, Palpitations Gastrointestinal: No: Nausea, Vomiting, Abdominal Pain Genitourinary: No Dysuria, No Frequency Musculoskeletal: leg pain (left 1st metatarsal ) Focused Exam Lactate Level 04/20/20 18:27: Lactic Acid Level 0.77 Objective Exam Vital Signs Vital Signs Date Time Temp Pulse Resp B/P (MAP) Pulse Ox O2 Delivery O2 Flow Rate FiO2 04/23/20 08:36 98 Room Air 04/23/20 08:00 36.3 59 20 160/69 (99) Capillary Refill : Less Than 3 Seconds General Appearance: No Apparent Distress, Thin HEENT: PERRL/EOMI Neck: Full Range of Motion, Non Tender Respiratory: Chest Non Tender, No Accessory Muscle Use, No Respiratory Distress Cardiovascular: Regular Rate, Rhythm, No Edema, Normal Peripheral Pulses, Other (Murmur note with auscultation. Possibly aortic in nature) Gastrointestinal: Non Tender, Soft Back: No CVA Tenderness Extremity: Normal Capillary Refill, No Calf Tenderness, Other (Left 1st metatarsal is erythematous. Well localized with minimal ozzing on medial aspect of wound ) Neurologic/Psychiatric: Alert, Oriented x3 Skin: Normal Color Lymphatic: No Adenopathy Results/Procedures Lab Patient resulted labs reviewed. Imaging: Reviewed Imaging Films Assessment/Plan Assessment and Plan Assess & Plan/Chief Complaint Assessment 1. Acute Osteomyelitis - Curently recieving IV vancomycin - Dr. Ledbetter is evaluating for amputation 2. Murmur - appreciate cardiology recs 3. Carotid stenosis - appreciate cardiology recs - currently on clopinogrel 4. HX of AAA with graft - appreciate cardiology recs 5. PAD - appreciate cardiology recs 6. Chronic Smoker - smoking cessation education Plan 04/23 - added zosyn - vanc trough tonight - monitor labs - Cardiology consulted - appreciate surgery recs, possible surgery - continue home meds LOULOU CARDONA DO 04/24/20 0509: Subjective HPI/CC On Admission Date Seen by Provider: Apr 23, 2020 Subjective/Events-last exam Pt doing pretty well Left great toe pain is significant when she is due for a pain pill She does smoke a half a pack a day Has a murmur so cardiology has been evaluating her for risk stratification for surgery Echocardiogram reviewed Adding Zosyn antibiotic to the Vancomycin for gram negative coverage Overall doing pretty well otherwise Toe amputation may be required Review of Systems General: Fatigue, Malaise Musculoskeletal: foot pain Objective Exam General Appearance: No Apparent Distress, WD/WN, Chronically ill Respiratory: Lungs Clear Cardiovascular: Regular Rate, Rhythm Extremity: Other (Left 1st metatarsal is erythematous. Well localized with minimal ozzing on medial aspect of wound ) Neurologic/Psychiatric: Alert, Oriented x3 Assessment/Plan Assessment and Plan Assess & Plan/Chief Complaint IV abx Monitor pain Amputation? Supervisory-Addendum Brief Verification & Attestation Participated in pt care: history, MDM, physical Personally performed: exam, history, MDM, supervision of care Care discussed with: Medical Student Procedures: n/a Results interpretation: Verified all documentation Verification and Attestation of Medical Student E/M Service A medical student performed and documented this service in my presence. I reviewed and verified all information documented by the medical student and made modifications to such information, when appropriate. I personally performed the physical exam and medical decision making. Loulou Cardona Apr 24, 2020,05:07 CLARISA KINCAID Apr 23, 2020 11:52 LOULOU CARDONA DO Apr 24, 2020 05:09
[2020-04-23 12:06] VITALS: BP 105/63
--- NOTE | 2020-04-23 15:19 | Progress Note ---
Subjective Date Seen by a Provider: Apr 23, 2020 Time Seen by a Provider: 15:00 Subjective/Events-last exam doing ok. pain left great toe. no fever/chills. Focused Exam Lactate Level 04/20/20 18:27: Lactic Acid Level 0.77 Objective Exam Vital Signs Date Time Temp Pulse Resp B/P (MAP) Pulse Ox O2 Delivery O2 Flow Rate FiO2 04/23/20 12:06 36.7 64 20 105/63 (77) 98 Room Air 04/23/20 08:36 98 Room Air 04/23/20 08:00 36.3 59 20 160/69 (99) 98 Room Air 04/23/20 00:00 35.9 57 16 147/65 (92) 98 Room Air 04/22/20 20:38 Room Air 04/22/20 20:29 36.8 61 16 156/70 (98) 98 Room Air 04/22/20 16:17 36.4 60 16 175/79 (111) 96 Room Air I & O 04/23/20 07:00 Intake Total 1120 ml Balance 1120 ml Capillary Refill : Less Than 3 Seconds General Appearance: No Apparent Distress HEENT: PERRL/EOMI Neck: Full Range of Motion Respiratory: Chest Non Tender, Lungs Clear Cardiovascular: Regular Rate, Rhythm Gastrointestinal: normal bowel sounds, non tender, soft Extremity: Slow Capillary Refill Neurologic/Psychiatric: Alert, Oriented x3 Skin: Other (redness/erythema left great toe) Lymphatic: No Adenopathy Results Lab Microbiology 04/20/20 Blood Culture - Preliminary, Resulted No growth 04/20/20 Gram Stain - Final, Resulted 04/20/20 Wound Culture - Preliminary, Resulted Staphylococcus lugdunensis Assessment/Plan Assessment/Plan Assess & Plan/Chief Complaint left great toe osteomyelitis. plan for toe amputation. YANELI MEEHAN MD Apr 23, 2020 15:19
--- NOTE | 2020-04-23 15:20 | Progress Note-Pre Operative ---
Pre-Operative Progress Note H&P Reviewed The H&P was reviewed, patient examined and no changes noted. Date Seen by Provider: Apr 23, 2020 Time Seen by Provider: 15:00 Date H&P Reviewed: Apr 23, 2020 Time H&P Reviewed: 15:00 Pre-Operative Diagnosis: left great toe osteomyelitis YANELI MEEHAN MD Apr 23, 2020 15:20
[2020-04-23 15:40] VITALS: BP 160/74
--- NOTE | 2020-04-23 16:14 | Progress Note - Cardiology ---
Cardiology SOAP Progress Note Subjective: No cp or palp or syncope or shortness of breath Gen malaise and weakness No swelling No n/v/d Objective: I&O/Vital Signs 04/23/20 04/23/20 04/23/20 04/23/20 08:00 08:36 12:06 15:40 Temp 36.3 36.7 36.6 Pulse 59 64 60 Resp 20 20 18 B/P (MAP) 160/69 (99) 105/63 (77) 160/74 (102) Pulse Ox 98 98 98 97 O2 Delivery Room Air Room Air Room Air Room Air 04/23/20 00:00 Intake Total 1020 ml Balance 1020 ml Constitutional: appears stated age, AAO x 3, well-developed, other (thin) Respiratory: chest is bilaterally symmetric, lungs clear to auscultation Cardiovascular: regular rate-rhythm, S1 and S2, systolic murmur Gastrointestional: No tender; soft, audible bowel sounds Extremities: No clubbing; no lower extremity edema bilateral, wound (dressing to LLE not removed) Neurologic/Psychiatric: grossly intact (moves all extremities) Skin: other (see above) Results/Procedures: Labs Microbiology 04/20/20 Blood Culture - Preliminary, Resulted No growth 04/20/20 Gram Stain - Final, Resulted 04/20/20 Wound Culture - Preliminary, Resulted Staphylococcus lugdunensis Laboratory Tests 04/22/20 04:28 A/P: Assessment: Left great toe osteomyelitis - management per surgical/medical services PAD. According to the patient, she has right lower extremity stents - details unknown Carotid arterial dz with h/o L CEA by Dr. Whyte at [facility] in [place], [place] Possible AAA graft, no records available but that seems to be the description she gave me. Tobaccoism - cessation advised Plan: Documented h/o PAD and carotid arterial dz with possible AAA endograft [facility] [place] Left great toe osteomylitis - management per medical/surgical services Arterial doppler to eval peripheral perfusion Smoking cessation advised Monitor lab closely replace electrolytes as indicated Allowed her to vent her frustrations and answered her questions Reviewed Dr. Sanchez's notes from the weekend AMY PORTER MD FACP FAC CCDS Apr 23, 2020 16:14
[2020-04-23] MEDS: PIPERACILLIN/TAZOBACTAM (BULK) 4.5 GM in NS (IVPB) 100 ML IV SCH ×2 (16:19→23:30)
--- NOTE | 2020-04-23 17:22 | Diagnostic Imaging Report ---
INDICATION: Nonhealing wound of left foot. Bilateral lower extremity arterial Doppler study performed in the routine fashion with color flow Doppler and waveform analysis. On both sides, flow was monophasic throughout, with moderately elevated velocities in the common femoral arteries on both sides. This suggested inflow disease at the aorta or iliac level. There is no focal stenosis or occlusion below the inguinal ligament. IMPRESSION: Abnormal Doppler study with monophasic flow bilaterally, suggesting inflow disease either in the aorta or iliac region. CTA can be considered if clinically warranted. Dictated by: Dictated on workstation # [id number]
[2020-04-23] MEDS ORDERED: TROUGH ORDER-PHARMACY XX NR (20:00)
[2020-04-23] MEDS: VANCOMYCIN INJECTION 750 MG in NS (IVPB) 250 ML IV SCH (20:52)
[2020-04-23] MEDS: ROSUVASTATIN 20 MG (CRESTOR) TABLET PO SCH (20:52)
[2020-04-23] MEDS: polyethylene glycoL POWDER 17 GM (MIRALAX) PACK PO SCH (20:53)
[2020-04-23 23:39] VITALS: BP 165/72
[2020-04-24] VITALS (10 sets, daily range): BP systolic 101–191; BP diastolic 40–77
[2020-04-24] MEDS: HYDROcodone/APAP 5 MG/325 MG (LORTAB) TAB PO PRN ×2 (03:23→11:54)
[2020-04-24] MEDS: CATHETER FLUSH 10 ML SYR IV SCH ×3 (03:24→20:10)
[2020-04-24 05:09] LABS: BASOPHILS % (AUTO) 0 % (0-10); EOSINOPHILS # (AUTO) 0.1 10^3/uL (0.0-0.3); EOSINOPHILS % (AUTO) 2 % (0-10); HEMATOCRIT 32 % (35-52); HEMOGLOBIN 10.1 g/dL (11.5-16.0); LYMPHOCYTES # (AUTO) 1.8 10^3/uL (1.0-4.0); LYMPHOCYTES % (AUTO) 33 % (12-44); MEAN CORPUSCULAR HEMOGLOBIN 31 pg (25-34); MEAN CORPUSCULAR HGB CONC 32 g/dL (32-36); MEAN CORPUSCULAR VOLUME 96 fL (80-99); MEAN PLATELET VOLUME 10.8 fL (9.0-12.2); MONOCYTES # (AUTO) 0.6 10^3/uL (0.0-1.0); MONOCYTES % (AUTO) 11 % (0-12); NEUTROPHILS # (AUTO) 2.9 10^3/uL (1.8-7.8); NEUTROPHILS % (AUTO) 54 % (42-75); PLATELET COUNT 149 10^3/uL (130-400); WHITE BLOOD COUNT 5.4 10^3/uL (4.3-11.0)
[2020-04-24 05:20] LABS: ALBUMIN 3.1 GM/DL (3.2-4.5)
[2020-04-24 05:21] LABS: CHLORIDE 108 MMOL/L (98-107); POTASSIUM 3.7 MMOL/L (3.6-5.0); SODIUM 138 MMOL/L (135-145)
[2020-04-24 05:22] LABS: CALCIUM 8.2 MG/DL (8.5-10.1)
[2020-04-24 05:23] LABS: GLUCOSE 93 MG/DL (70-105); TOTAL PROTEIN 5.1 GM/DL (6.4-8.2)
[2020-04-24 05:24] LABS: CARBON DIOXIDE 22 MMOL/L (21-32)
[2020-04-24 05:25] LABS: BILIRUBIN,TOTAL 0.4 MG/DL (0.1-1.0)
[2020-04-24 05:26] LABS: ALKALINE PHOSPHATASE 60 U/L (40-136)
[2020-04-24 05:27] LABS: CREATININE SERUM 0.72 MG/DL (0.60-1.30); GFR ESTIMATED > 60
[2020-04-24 05:28] LABS: BUN/CREATININE RATIO 13
[2020-04-24 05:30] LABS: ALANINE AMINOTRANSFERASE 13 U/L (0-55)
[2020-04-24] MEDS: CLOPIDOGREL 75 MG (PLAVIX) TABLET PO SCH (07:46)
[2020-04-24] MEDS: PIPERACILLIN/TAZOBACTAM (BULK) 4.5 GM in NS (IVPB) 100 ML IV SCH ×3 (07:53→23:34)
[2020-04-24] MEDS: VANCOMYCIN INJECTION 750 MG in NS (IVPB) 250 ML IV SCH ×2 (08:40→20:09)
--- NOTE | 2020-04-24 08:57 | Progress Note - Hospitalist ---
CLARISA KINCAID [facility] 04/24/20 0857: Subjective HPI/CC On Admission Date Seen by Provider: Apr 24, 2020 Time Seen by Provider: 08:52 Patient is admitted with osteomyelitis of the left great toe. She began having problems with that toe several years ago secondary to fungus. Not seen her cloth wire weaver in about a year until March 19. It was trimmed at that time and she began having increased erythema inflammation and pain in it afterwards. It progressed where she had cellulitis of the toe and of the leg upon admission yesterday x-ray reveals osteomyelitis of the distal phalanx. Is admitted for definitive care. And antibiotics Subjective/Events-last exam Ana was sitting up in bed and in a good mood. She denies pain. Surgery scheduled for 11:[address] Ledbetter today. She has been NPO. Overall she is doing well, no N/V, F/C, SOB and chest pain at this time. She asked about PT after s urgery. Left toe is a little more erythematous with oozing on the medial aspect. It does not appear to have spread. Review of Systems General: No Chills Pulmonary: No Dyspnea, No Cough Cardiovascular: No: Chest Pain, Palpitations Gastrointestinal: No: Nausea, Vomiting, Abdominal Pain Neurological: No: Weakness Objective Exam Vital Signs Vital Signs Date Time Temp Pulse Resp B/P (MAP) Pulse Ox O2 Delivery O2 Flow Rate FiO2 04/24/20 08:00 95 Room Air 04/24/20 07:58 36.2 58 16 156/68 (97) Capillary Refill : Less Than 3 Seconds General Appearance: No Apparent Distress, Thin Neck: Non Tender Respiratory: Chest Non Tender, No Accessory Muscle Use, No Respiratory Distress Cardiovascular: No Edema, Normal Peripheral Pulses, Other (Murmur ) Gastrointestinal: Normal Bowel Sounds, Non Tender, Soft Extremity: No Calf Tenderness, No Pedal Edema, Other (erythema and oozing on the medial aspect of 1st Left Metarsal. Tenderness with palpation. ) Neurologic/Psychiatric: Alert, Oriented x3 Skin: Normal Color, Warm/Dry Lymphatic: No Adenopathy Results/Procedures Lab Laboratory Tests 04/24/20 04:35 Patient resulted labs reviewed. Imaging: Reviewed Imaging Films Assessment/Plan Assessment and Plan Assess & Plan/Chief Complaint Assessment 1. Acute Osteomyelitis - Curently recieving IV vancomycin - Dr. Ledbetter is evaluating for amputation 2. Murmur - appreciate cardiology recs 3. Carotid stenosis - appreciate cardiology recs - currently on clopinogrel 4. HX of AAA with graft - appreciate cardiology recs 5. PAD - appreciate cardiology recs 6. Chronic Smoker - smoking cessation education Plan 04/23 - added zosyn - vanc trough tonight - monitor labs - Cardiology consulted - appreciate surgery recs, possible surgery - continue home meds Plan 04/24 - continue abx - Surgery today - Will evaluate for PT post surg LOULOU MEYER DO 04/25/20 0545: Subjective Subjective/Events-last exam Pt will have her toe amputated today at 11:[address] Ledbetter Cardiac murmur evaluated by cardiology Echocardiogram reviewed Vancomycin and Zosyn maintained Pt aware of amputation and understands and agrees with the plan Review of Systems General: Fatigue Objective Exam General Appearance: No Apparent Distress, WD/WN, Chronically ill Respiratory: Lungs Clear, Normal Breath Sounds Cardiovascular: Regular Rate, Rhythm, Systolic Murmur Assessment/Plan Assessment and Plan Assess & Plan/Chief Complaint OR today Supervisory-Addendum Brief Verification & Attestation Participated in pt care: history, MDM, physical Personally performed: exam, history, MDM, supervision of care Care discussed with: Medical Student Procedures: n/a Results interpretation: Verified all documentation Verification and Attestation of Medical Student E/M Service A medical student performed and documented this service in my presence. I reviewed and verified all information documented by the medical student and made modifications to such information, when appropriate. I personally performed the physical exam and medical decision making. Loulou Meyer, Apr 25, 2020,05:44 CLARISA KINCAID [facility] Apr 24, 2020 08:57 LOULOU MEYER DO Apr 25, 2020 05:45
[2020-04-24] MEDS ORDERED: ONDANSETRON 4 MG/2 ML (SDV) Z0FRAN ONE (10:26)
[2020-04-24] MEDS ORDERED: LIDOCAINE 1% INJ 20 ML 20 ML VIAL ONE (12:02)
[2020-04-24] MEDS ORDERED: PROPOFOL INJECTION 50 ML IV ONE (12:25)
[2020-04-24] MEDS ORDERED: fentaNYL INJECTION 100 MCG/2 ML AMP ONE (12:25)
[2020-04-24] MEDS ORDERED: KETAMINE/NaCl 50 MG/5 ML SYRINGE (ED ONLY) ONE (12:53)
--- NOTE | 2020-04-24 13:43 | Progress Note-Post Operative ---
Post-Operative Progess Note Surgeon (s)/Financial Reporting Specialist (s) Surgeon YANELI MEEHAN MD Financial Reporting Specialist: none Pre-Operative Diagnosis left great toe osteomyelitis Post-Operative Diagnosis same Procedure & Operative Findings Date of Procedure 04/24/20 Procedure Performed/Findings left great toe amputation, digital nerve block Anesthesia Type mac with local Estimated Blood Loss Estimated blood loss (mL): minimal Specimens/Packing Specimens Removed left great toe YANELI MEEHAN MD Apr 24, 2020 13:43
--- NOTE | 2020-04-24 13:50 | Anesthesia-General Post-Op ---
MAC Patient Condition Mental Status/LOC: Same as Preop Cardiovascular: Satisfactory Nausea/Vomiting: Absent Respiratory: Satisfactory Pain: Controlled Complications: Absent Post Op Complications Complications None Follow Up Care/Instructions Patient Instructions None needed. Anesthesiology Discharge Order Discharge Order Patient is doing well, no complaints, stable vital signs, no apparent adverse anesthesia problems. No complications reported per nursing. QUINN JOSEPH CRNA Apr 24, 2020 13:50
[2020-04-24] MEDS ORDERED: ONDANSETRON 4 MG/2 ML (SDV) Z0FRAN IVP PRN (14:00)
[2020-04-24] MEDS ORDERED: morphine INJ 10 MG/ML 1ML (SYR OR VIAL) IVP ONE (14:00)
[2020-04-24] MEDS: CARVEDILOL 12.5 MG (COREG) TABLET PO SCH ×2 (14:43→20:09)
[2020-04-24] MEDS: LOSARTAN 25 MG (COZAAR) TAB PO SCH (14:43)
[2020-04-24] MEDS: amLODIPine 5 MG (NORVASC) TAB PO SCH (14:43)
--- NOTE | 2020-04-24 18:05 | Progress Note - Cardiology ---
Cardiology SOAP Progress Note Subjective: No cp or palp or syncope No shortness of breath at rest Gen malaise and weakness No n/v Objective: I&O/Vital Signs 04/24/20 04/24/20 04/24/20 04/24/20 07:00 07:58 08:00 13:47 Temp 36.2 Pulse 58 Resp 16 B/P (MAP) 156/68 (97) Pulse Ox 95 95 95 O2 Delivery Room Air Room Air Room Air OxyMask O2 Flow Rate 4 04/24/20 04/24/20 04/24/20 04/24/20 13:47 13:50 14:00 14:00 Temp 36.4 Resp 16 20 20 B/P (MAP) 101/40 (60) 103/42 (62) 128/47 (74) Pulse Ox 100 100 97 O2 Delivery OxyMask OxyMask Room Air Room Air O2 Flow Rate 4 3 04/24/20 04/24/20 04/24/20 04/24/20 14:10 14:15 14:20 14:30 Resp 20 20 B/P (MAP) 128/50 (76) 151/54 (86) Pulse Ox 95 96 O2 Delivery Room Air Room Air Room Air Room Air 04/24/20 04/24/20 04/24/20 04/24/20 14:30 14:40 14:40 14:40 Temp 36.4 Pulse 62 Resp 20 20 18 B/P (MAP) 172/62 (98) 170/60 (96) 191/77 (115) Pulse Ox 96 96 97 O2 Delivery Room Air Room Air Room Air Room Air 04/24/20 16:00 Temp 36.4 Pulse 58 Resp 20 B/P (MAP) 145/59 (87) Pulse Ox 98 O2 Delivery Room Air 04/23/20 23:59 Intake Total 1250 ml Balance 1250 ml Constitutional: appears stated age, AAO x 3, well-developed, other (thin) Respiratory: chest is bilaterally symmetric, lungs clear to auscultation Cardiovascular: regular rate-rhythm, S1 and S2, systolic murmur Gastrointestional: No tender; soft, audible bowel sounds Extremities: No clubbing; no lower extremity edema bilateral, wound (dressing to LLE not removed) Neurologic/Psychiatric: grossly intact (moves all extremities) Skin: other (see above) Results/Procedures: Labs Laboratory Tests 3/8/21 20:09: Vancomycin Level Trough 8.5L 04/24/20 04:35: White Blood Count 5.4, Red Blood Count 3.29L, Hemoglobin 10.1L, Hematocrit 32L, Mean Corpuscular Volume 96, Mean Corpuscular Hemoglobin 31, Mean Corpuscular Hemoglobin Concent 32, Red Cell Distribution Width 13.0, Platelet Count 149, Mean Platelet Volume 10.8, Immature Granulocyte % (Auto) 0, Neutrophils (%) (Auto) 54, Lymphocytes (%) (Auto) 33, Monocytes (%) (Auto) 11, Eosinophils (%) (Auto) 2, Basophils (%) (Auto) 0, Neutrophils # (Auto) 2.9, Lymphocytes # (Auto) 1.8, Monocytes # (Auto) 0.6, Eosinophils # (Auto) 0.1, Basophils # (Auto) 0.0, Immature Granulocyte # (Auto) 0.0, Sodium Level 138, Potassium Level 3.7, Chloride Level 108H, Carbon Dioxide Level 22, Anion Gap 8, Blood Urea Nitrogen 9 , Creatinine 0.72, Estimat Glomerular Filtration Rate > 60, BUN/Creatinine Ratio 13, Glucose Level 93, Calcium Level 8.2L, Corrected Calcium 8.9, Total Bilirubin 0.4, Aspartate Amino Transf (AST/SGOT) 15, Alanine Aminotransferase (ALT/SGPT) 13, Alkaline Phosphatase 60, Total Protein 5.1L, Albumin 3.1L 04/24/20 07:35: Microbiology 04/20/20 Blood Culture - Preliminary, Resulted No growth 04/20/20 Gram Stain - Final, Resulted 04/20/20 Wound Culture - Preliminary, Resulted Staphylococcus lugdunensis A/P: Assessment: Left great toe osteomyelitis, treated with L great toe amputation by Dr Ledbetter on 04/24/20 PAD - arterial Doppler of 04/24/19: Abnormal Doppler study with monophasic flow bilaterally, suggesting inflow disease either in the aorta or iliac region - pt reports h/o peripheral arterial intervention by Dr Whyte at [facility] in [place], [place] many years ago but is not able to provide any details Carotid arterial dz with h/o L CEA by Dr. Whyte at [facility] in [place], [place] Tobaccoism - cessation advised Echo on 04/21/20 (Dr Khalid): LVEF 75-80%, mild MR, mod , enlargement of LA, PASP 40-45 mmHg Plan: I discussed the finding of leg arterial Doppler with her and advised further w/u. Questions answered in detail. She does not wish to pursue this any further at this time. States will discuss with her primary Dr Garza. Smoking cessation advised Monitor lab closely replace electrolytes as indicated AMY PORTER MD FACP FAC CCDS Apr 24, 2020 18:05
--- NOTE | 2020-04-24 18:45 | OPERATIVE REPORT ---
DATE OF SERVICE: 04/24/2020 ATTENDING PRIMARY CARE PHYSICIAN: Jonathan Garza MD ADMITTING PHYSICIAN: Jigna Gamble MD PREOPERATIVE DIAGNOSIS: Osteomyelitis, left great toe. POSTOPERATIVE DIAGNOSIS: Osteomyelitis, left great toe. PROCEDURE: Amputation of left great toe, digital nerve block. SURGEON: Yaneli Meehan MD. ANESTHESIA: Monitored anesthesia care with digital nerve block and local anesthesia. FINDINGS: Osteolytic changes of the phalanx. The metatarsal head appeared to be intact. DISPOSITION: The patient tolerated the procedure well. ESTIMATED BLOOD LOSS: Minimal. INDICATION: The patient is an 84-year-old female who has been having trouble with her left great toe. She has been dealing with a fungal infection issues; however, has more recently developed redness, swelling as well as drainage. She was seen in the Emergency Department where an x-ray was performed, which did show osteoarthritic changes of the left first phalanx consistent with osteomyelitis and she was admitted and placed on IV antibiotics. Due to her age, comorbidities, cardiology was also consulted and she was cleared for the procedure. DESCRIPTION OF PROCEDURE: The patient was brought to the operating room, laid supine on the table. After adequate IV pain and sedative medications and monitored anesthesia care, the left lower extremity was prepped and draped in standard surgical fashion. We then proceeded with a digital nerve block using 1% lidocaine bilaterally along the metatarsophalangeal joint. We then proceeded with local anesthesia. After superior and inferior skin flaps were measured out and marked. The superior skin flap was then created using a 15 blade and the subcutaneous tissue and the tendons and ligaments were taken down using electrocautery. We then proceeded with our inferior flap dissection using a 15 blade and in a similar manner resected the fat pad, subcutaneous tissue as well as the ligamentous and tendon attachments using electrocautery. There did not appear to be any purulence within the joint capsule. This was sent for culture and sensitivity. Good hemostasis was observed and the skin and subcutaneous tissue were then approximated using 0 Prolene horizontal mattress sutures. The wound was then cleaned and covered with Adaptic followed by 4 x 4 gauze followed by Kerlix, followed by Coban, followed by a walking boot. The patient tolerated the procedure well. When she is able to ambulate and had adequate pain control, she may be discharged home. She will be instructed to keep the area clean and dry and apply 4 x 4 gauze dressing and Kerlix wrap on a daily basis. Job ID: [id number] DocumentID: [id number] Dictated Date: 04/24/2020 13:48:35 Boiler Control Technician Date: 04/24/2020 18:44:44 Dictated By: YANELI MEEHAN MD [facility]
[2020-04-24] MEDS: ROSUVASTATIN 20 MG (CRESTOR) TABLET PO SCH (20:09)
[2020-04-24] MEDS: polyethylene glycoL POWDER 17 GM (MIRALAX) PACK PO SCH (20:10)
[2020-04-25] MEDS: HYDROcodone/APAP 5 MG/325 MG (LORTAB) TAB PO PRN ×2 (00:55→09:44)
[2020-04-25] MEDS: CATHETER FLUSH 10 ML SYR IV SCH ×2 (05:20→14:24)
[2020-04-25 05:30] LABS: BASOPHILS % (AUTO) 0 % (0-10); EOSINOPHILS # (AUTO) 0.1 10^3/uL (0.0-0.3); EOSINOPHILS % (AUTO) 2 % (0-10); HEMATOCRIT 32 % (35-52); HEMOGLOBIN 10.2 g/dL (11.5-16.0); LYMPHOCYTES # (AUTO) 1.9 10^3/uL (1.0-4.0); LYMPHOCYTES % (AUTO) 29 % (12-44); MEAN CORPUSCULAR HEMOGLOBIN 31 pg (25-34); MEAN CORPUSCULAR HGB CONC 32 g/dL (32-36); MEAN CORPUSCULAR VOLUME 97 fL (80-99); MEAN PLATELET VOLUME 10.9 fL (9.0-12.2); MONOCYTES # (AUTO) 0.7 10^3/uL (0.0-1.0); MONOCYTES % (AUTO) 11 % (0-12); NEUTROPHILS # (AUTO) 3.6 10^3/uL (1.8-7.8); NEUTROPHILS % (AUTO) 57 % (42-75); PLATELET COUNT 150 10^3/uL (130-400); WHITE BLOOD COUNT 6.3 10^3/uL (4.3-11.0)
[2020-04-25 05:42] LABS: ALBUMIN 3.3 GM/DL (3.2-4.5); CHLORIDE 108 MMOL/L (98-107); POTASSIUM 3.9 MMOL/L (3.6-5.0); SODIUM 139 MMOL/L (135-145)
[2020-04-25 05:43] LABS: CALCIUM 8.3 MG/DL (8.5-10.1)
[2020-04-25 05:44] LABS: GLUCOSE 90 MG/DL (70-105)
[2020-04-25 05:45] LABS: TOTAL PROTEIN 5.4 GM/DL (6.4-8.2)
[2020-04-25 05:46] LABS: BILIRUBIN,TOTAL 0.4 MG/DL (0.1-1.0); CARBON DIOXIDE 23 MMOL/L (21-32)
[2020-04-25 05:48] LABS: ALKALINE PHOSPHATASE 72 U/L (40-136); CREATININE SERUM 0.74 MG/DL (0.60-1.30); GFR ESTIMATED > 60
[2020-04-25 05:49] LABS: BUN/CREATININE RATIO 9
[2020-04-25 05:51] LABS: ALANINE AMINOTRANSFERASE 17 U/L (0-55)
[2020-04-25 08:27] VITALS: BP 173/70
[2020-04-25] MEDS: VANCOMYCIN INJECTION 750 MG in NS (IVPB) 250 ML IV SCH (09:09)
[2020-04-25] MEDS: PIPERACILLIN/TAZOBACTAM (BULK) 4.5 GM in NS (IVPB) 100 ML IV SCH (09:09)
[2020-04-25] MEDS: amLODIPine 5 MG (NORVASC) TAB PO SCH (09:38)
[2020-04-25] MEDS: CARVEDILOL 12.5 MG (COREG) TABLET PO SCH (09:38)
[2020-04-25] MEDS: CLOPIDOGREL 75 MG (PLAVIX) TABLET PO SCH (09:38)
[2020-04-25] MEDS: LOSARTAN 25 MG (COZAAR) TAB PO SCH (09:38)
[2020-04-25] MEDS ORDERED: POLY17PO54 PO (10:36)
[2020-04-25] MEDS ORDERED: LOSA25TA41 PO (10:36)
[2020-04-25] MEDS ORDERED: CEPH500T PO (10:36)
[2020-04-25] MEDS ORDERED: ACHD5005 PO (10:36)
--- NOTE | 2020-04-25 10:39 | D/C HH Face to Face Order ---
D/C Face to Face Orders Reconcile Patient Problems Problems Reviewed?: Yes Instructions for Patient Home Health Patient Instructions/FollowUp: PCP 1 week Physician to follow Patient: [facility] Discharge Diet for Home: Cardiac Diet Patient Problems: s/p left great toe amputation Patient Data-Allergies,Ht & Wt Patient Allergies: Coded Allergies: No Known Drug Allergies (Unverified , 12/27/18) Home Health Need/Face to Face Date of Face to Face: Apr 25, 2020 Clinical Findings: Generalized weakness and fatigue, Instability, Muscle weakness, Unsteady gait I have seen Pt [id number]: Yes Discharged To: Home Diagnosis/Conditions: s/p left great toe amputation Patient is Homebound due to: Mavis fall risk due to instabilty, Non-weight bearing, Pain w/ambulation Homebound Status Due to the above stated illness, injury or surgical procedure (medical condition or diagnosis) and associated clinical findings, the patient is homebound because of his/her inability to leave home except with aid of a supportive device and/or person AND leaving the home requires a considerable and taxing effort or is medically contraindicated. Pt req the following assistanc: Walker Home Health Nursing Orders Home Health Services Order: Nursing Services, X Ray Service Engineer-Evaluate & Treat, Physical Therapy-Evaluate & Treat Home Health Infusion Therapy Line Start Date: Apr 20, 2020 Certify Stmt I certify that this patient is under my care and that I, a nurse practitioner or a physician; a professional nursing assistant working with me, had a face to face encounter that - meets the physician face to face encounter requirements with this patient as dated. MELQUIADES CARDONA DO Apr 25, 2020 10:39
--- NOTE | 2020-04-25 10:39 | Discharge Summary ---
Discharge Summary Hospital Course Was the Problem List Reviewed?: Yes Problems/Dx: (1) Osteomyelitis of great toe of left foot Status: Acute Hospital Course Date of Admission: Apr 20, 2020 at 20:59 Admission Diagnosis : Family Physician/Provider: Jonathan Garza MD Date of Discharge: 04/25/20 Discharge Diagnosis: left great toe amputation due to severe osteomyelitis, severe PVD declined definitive treatment, smoker, copd Hospital Course: Hospital Course: Pt had an uneventful hospital course after she was admitted for osteomyelitis of the left great toe. She was placed on Vancomycin and Zosyn empirically and underwent peripheral vascular evaluation showing slow flow but declined any other treatment for that. She had an uneventful left great toe amputation by Dr. Ledbetter. PT and OT were ordered and home health will be ordered and she will be managed with pain medication and Keflex 500mg TID for five days. Labs and Pending Lab Test: Laboratory Tests 04/25/20 05:02: White Blood Count 6.3, Red Blood Count 3.31L, Hemoglobin 10.2L, Hematocrit 32L, Mean Corpuscular Volume 97, Mean Corpuscular Hemoglobin 31, Mean Corpuscular Hemoglobin Concent 32, Red Cell Distribution Width 13.0, Platelet Count 150, Mean Platelet Volume 10.9, Immature Granulocyte % (Auto) 0, Neutrophils (%) (Auto) 57, Lymphocytes (%) (Auto) 29, Monocytes (%) (Auto) 11, Eosinophils (%) (Auto) 2, Basophils (%) (Auto) 0, Neutrophils # (Auto) 3.6, Lymphocytes # (Auto) 1.9, Monocytes # (Auto) 0.7, Eosinophils # (Auto) 0.1, Basophils # (Auto) 0.0, Immature Granulocyte # (Auto) 0.0, Sodium Level 139, Potassium Level 3.9, Chloride Level 108H, Carbon Dioxide Level 23, Anion Gap 8, Blood Urea Nitrogen 7, Creatinine 0.74, Estimat Glomerular Filtration Rate > 60, BUN/Creatinine Ratio 9, Glucose Level 90, Calcium Level 8.3L, Corrected Calcium 8.9, Total Bilirubin 0.4, Aspartate Amino Transf (AST/SGOT) 17, Alanine Aminotransferase (ALT/SGPT) 17, Alkaline Phosphatase 72, Total Protein 5.4L, Albumin 3.3 Microbiology 04/24/20 Gram Stain - Final, Resulted 04/24/20 Anaerobic Culture, Resulted Pending 04/24/20 Surgical Culture, Resulted Pending 04/24/20 MRSA Screen - Final, Complete MRSA not isolated 04/20/20 Blood Culture - Preliminary, Resulted No growth Home Meds Active Cephalexin 500 Mg Tablet 500 Mg PO TID Polyethylene Glycol 3350 17 Gm Powd.pack 17 Gm PO HS HYDROcodone/APAP 5 MG/325 MG TAB (Acetaminophen/Hydrocodone Bitart) 1 Tab Tab 1 Ea PO Q4H PRN Losartan Potassium 25 Mg Tablet 25 Mg PO DAILY Reported Amlodipine Besylate 5 Mg Tablet 5 Mg PO DAILY Carvedilol 6.25 Mg Tablet 6.25 Mg PO BID Aspirin EC (Aspirin) 81 Mg Tablet.dr 81 Mg PO DAILY Crestor (Rosuvastatin Calcium) 20 Mg Tablet 20 Mg PO DAILY Linzess (Linaclotide) 145 Mcg Capsule 145 Mg PO DAILY Plavix (Clopidogrel Bisulfate) 75 Mg Tablet 75 Mg PO DAILY Assessment/Pt Instructions [facility] 1 week Discharge Planning: <30 minutes discharge planning Discharge Instructions Discharge Diet: No Restrictions Discharge Physical Examination Vital Signs Vital Signs Date Time Temp Pulse Resp B/P (MAP) Pulse Ox O2 Delivery O2 Flow Rate FiO2 04/25/20 08:27 36.8 62 20 173/70 (104) 96 Room Air 04/24/20 13:50 3 General Appearance: No Apparent Distress, WD/WN, Chronically ill Respiratory: Lungs Clear Cardiovascular: Regular Rate, Rhythm Neurologic/Psychiatric: Alert, Oriented x3, No Motor/Sensory Deficits, Normal Mood/Affect Allergies: Coded Allergies: No Known Drug Allergies (Unverified , 12/27/18) Discharge Summary Date of Admission Apr 20, 2020 at 20:59 Date of Discharge Discharge Date: Apr 25, 2020 Admission Diagnosis Osteomyelitis left great toe Systolic murmur Peripheral vascular disease with previous intervention Discharge Diagnosis OR today MELQUIADES CARDONA DO Apr 25, 2020 10:39
--- NOTE | 2020-04-25 12:46 | Progress Note - Cardiology ---
Cardiology SOAP Progress Note Subjective: Sitting up in recliner for lunch No c/o CP, SOB, palpitations No c/o left foot pain Objective: I&O/Vital Signs 04/25/20 04/25/20 08:27 12:32 Temp 36.8 Pulse 62 Resp 20 B/P (MAP) 173/70 (104) Pulse Ox 96 96 O2 Delivery Room Air Room Air 04/25/20 00:00 Intake Total 2907.5 ml Balance 2907.5 ml Constitutional: appears stated age, AAO x 3, well-developed, other (thin) Respiratory: chest is bilaterally symmetric, lungs clear to auscultation Cardiovascular: regular rate-rhythm, S1 and S2, systolic murmur Gastrointestional: No tender; soft, audible bowel sounds Extremities: No clubbing; no lower extremity edema bilateral, wound (dressing to LLE not removed) Neurologic/Psychiatric: grossly intact (moves all extremities) Skin: other (see above) Results/Procedures: Labs Laboratory Tests 04/25/20 05:02: White Blood Count 6.3, Red Blood Count 3.31L, Hemoglobin 10.2L, Hematocrit 32L, Mean Corpuscular Volume 97, Mean Corpuscular Hemoglobin 31, Mean Corpuscular Hemoglobin Concent 32, Red Cell Distribution Width 13.0, Platelet Count 150, Mean Platelet Volume 10.9, Immature Granulocyte % (Auto) 0, Neutrophils (%) (Auto) 57, Lymphocytes (%) (Auto) 29, Monocytes (%) (Auto) 11, Eosinophils (%) (Auto) 2, Basophils (%) (Auto) 0, Neutrophils # (Auto) 3.6, Lymphocytes # (Auto) 1.9, Monocytes # (Auto) 0.7, Eosinophils # (Auto) 0.1, Basophils # (Auto) 0.0, Immature Granulocyte # (Auto) 0.0, Sodium Level 139, Potassium Level 3.9, Chloride Level 108H, Carbon Dioxide Level 23, Anion Gap 8, Blood Urea Nitrogen 7, Creatinine 0.74, Estimat Glomerular Filtration Rate > 60, BUN/Creatinine Ratio 9, Glucose Level 90, Calcium Level 8.3L, Corrected Calcium 8.9, Total Bilirubin 0.4, Aspartate Amino Transf (AST/SGOT) 17, Alanine Aminotransferase (ALT/SGPT) 17, Alkaline Phosphatase 72, Total Protein 5.4L, Albumin 3.3 Microbiology 04/24/20 Gram Stain - Final, Resulted 04/24/20 Anaerobic Culture, Resulted Pending 04/24/20 Surgical Culture, Resulted Pending 04/24/20 MRSA Screen - Final, Complete MRSA not isolated 04/20/20 Blood Culture - Preliminary, Resulted No growth Laboratory Tests 04/24/20 04:35 04/25/20 05:02 A/P: Assessment: Left great toe osteomyelitis, treated with L great toe amputation by Dr Ledbetter on 04/24/20 PAD - arterial Doppler of 04/24/19: Abnormal Doppler study with monophasic flow bilaterally, suggesting inflow disease either in the aorta or iliac region - pt reports h/o peripheral arterial intervention by Dr Whyte at [facility] in [place], [place] many years ago but is not able to provide any details Carotid arterial dz with h/o L CEA by Dr. Whyte at [facility] in [place], [place] Tobaccoism - cessation advised Echo on 04/21/20 (Dr Sanchez): LVEF 75-80%, mild MR, mod , enlargement of LA, PASP 40-45 mmHg Plan: We have discussed the finding of leg arterial Doppler with her and advised further w/u. Questions answered in detail. She does not wish to pursue this any further at this time. States will discuss with her primary Dr Garza. Smoking cessation advised Monitor lab closely replace electrolytes as indicated Plan is to d/c home today per medical services JAZMIN ARTIS Apr 25, 2020 12:46
--- NOTE | 2020-04-25 12:55 | Progress Note ---
CLARISA KINCAID [facility] 04/25/20 1255: Progress Note Hospital Course: Ana is a 84 y/o female that was admitted to [facility] on 04/20/20 and will be discharged today 04/25/20. She was admitted for acute osteomyelitis of the left great toe. PMH includes PVD, HTN, CAD and memory difficulties. While admitted she was under the care of Internal Medicine Dr. Cardona and Dr. Gamble, Cardiology Dr. pulliam and Dr. Hills, General Surgery Dr. Ledbetter and rec eived PT/OT. Upon admission xray of her left great toe confirmed osteomylitis. She recieved LE U/S which confirmed blood flow issues. In regards to the results of LE US the Patient refused further workup with cardiology. Exam findings were positive for a painful, tender, erythematous and open ulcer on the medial aspect of the left great toe. Her treatment course included IV Abx and amputation of the left great toe. The patients labs are normal or in an acceptable range. Her pain is well controlled and she is tolerating her diet. She is in good spirits and currently is working with PT. She will be discharged today in stable condition. She must follow all information in discharge instructions, which includes but is not limited to at home care with wound, follow up visits and medications. The following information is only a summary of the patients admission while at [facility] and is not all inclusive. Please review entire chart for more information. LOULOU CARDONA DO 04/26/20 0519: Supervisory-Addendum Brief Verification & Attestation Participated in pt care: history, MDM, physical Personally performed: exam, history, MDM, supervision of care Care discussed with: Medical Student Procedures: n/a Results interpretation: Verified all documentation Verification and Attestation of Medical Student E/M Service A medical student performed and documented this service in my presence. I reviewed and verified all information documented by the medical student and made modifications to such information, when appropriate. I personally performed the physical exam and medical decision making. Loulou Cardona, Apr 26, 2020,05:19 CODITRUDYCLARISA [facility] Apr 25, 2020 12:55 LOULOU CARDONA DO Apr 26, 2020 05:19
--- NOTE | 2020-04-25 14:14 | Physical Therapy Evaluation ---
PT Evaluation-General Medical Diagnosis Admission Date Apr 20, 2020 at 20:59 Medical Diagnosis: osteomyelitis left great toe Onset Date: Apr 20, 2020 Therapy Diagnosis Therapy Diagnosis: impaired mobility, strength, endurance Precautions Precautions/Isolations: Fall Prevention, Standard Precautions Weight Bear Status patient wears a surgical shoe on the left side Referral Physician: Loulou Meyer DO Reason for Referral: Evaluation/Treatment Medical History Additional Medical History Past Medical History Surgeries: Vascular Surgery Cardiac: Coronary Artery Disease, High Cholesterol, Peripheral Vascular Sexually Transmitted Disease: No HIV/AIDS: No Gastrointestinal: Chronic Constipation Musculoskeletal: Arthritis Loss of Vision: Denies Hearing Impairment: Hard of Hearing, Bilateral Hearing Aide Reviewed History: Yes Social History Home: Single Level Current Living Status: Alone Entry Into Home: Stairs With Railing PT Steps Into Home: 5 Prior Prior Level of Function SCALE: Activities may be completed with or without assistive devices. 2-Jrqatyrdln-knmwfeo completes the activity by him/herself with no assistance from a helper. 5-Set-up or Clean-up Assistance-helper sets up or cleans up; patient completes activity. [place] assists only prior to or following the activity. 4-Supervision or Touching Assistance-helper provides verbal cues and/or touching/steadying and/or contact guard assistance as patient completes a ctivity. Assistance may be provided throughout the activity or intermittently. 3-Partial/Moderate Assistance-helper does LESS THAN HALF the effort. [place] lifts, holds or supports trunk or limbs, but provides less than half the effort. 2-Substantial/Maximal Assistance-helper does MORE THAN HALF the effort. [place] lifts or holds trunk or limbs and provides more than half the effort. 5-Cxhsczcvo-bcmoft does ALL the effort. Patient does none of the effort to complete the activity. Or, the assistance of 2 or more helpers is required for the patient to complete the activity. If activity was not attempted, code reason: 7-Patient Refused. 9-Not Applicable-not attempted and the patient did not perform the activity before the current illness, exacerbation or injury. 10-Not Attempted due to Environmental Limitations-(lack of equipment, weather restraints, etc.). 88-Not Attempted due to Medical Conditions or Safety Concerns. Bed Mobility: 6 Transfers (B,C,W/C): 6 Gait: 6 Stairs: 6 Indoor Mobility (Ambulation): Independent Stairs: Independent PT Evaluation-Current Subjective Patient in restroom pre tx, comes out on her own, agrees to PT, has no complaints of pain Pt/Family Goals to be independent at home Objective Patient Orientation: Person, Place, Situation ROM/Strength ROM Lower Extremities WNL Strength Lower Extremities LLE (hip flexion 3/5, knee flexion 4/5, knee extension 4/5, dorsiflexion not tested), RLE (hip flexion 3/5, knee flexion 4/5, knee extension 4/5, dorsiflexion 5/5) Sensory Vision: Wears Glasses Hearing: Functional Sensation Right Lower Extremit: Intact Sensation Left Lower Extremity: Intact Transfers Sit to Stand (QC): 4 Chair/Bod-sn-Vkjbe Xfer(QC): 4 SBA, cues for hand placement, tries to stand with both hands on walker Gait Does the Patient Walk?: Yes Mode of Locomotion: Walk Anticipated Mode of Locomotion: Walk Walk 10 feet (QC): 4 Walk 50 ft with 2 Turns(QC): 4 Walk 150 ft (QC): 4 Distance: 200' Gait Assistive Device: FWW Comments/Gait Description slow ambulation, SBA, no LOB with turning Balance Sitting Static: Normal Sitting Dynamic: Normal Standing Static: Good Standing Dynamic: Good Treatment instructed patient to continue with ambulation and specifically ankle pumps on her surgical side at home Assessment/Needs Patient has impaired mobility, strength, endurance. Patient appears fairly frail and could use continued PT for strengthening. Patient sitting EOB post tx with nurse call, phone, tray, all needs met. Rehab Potential: Fair PT Assisted Goals Assisted Goals PT Customer Business Manager Goals Time Frame: May 02, 2020 Roll Left & Right (QC): 6 Sit to Lying (QC): 6 Lying-Sitting on Side/Bed(QC): 6 Sit to Stand (QC): 6 Chair/Loj-sc-Jzvhp Xfer(QC): 6 Walk 10 feet (QC): 6 Walk 150 ft (QC): 6 PT Plan Problem List Problem List: Activity Tolerance, Functional Strength, Safety, Balance, Gait, Transfer Treatment/Plan Treatment Plan: Continue Plan of Care Treatment Plan: Education, Functional Activity Brit, Functional Strength, Gait, Safety, Therapeutic Exercise, Transfers Treatment Duration: May 02, 2020 Frequency: 6 times per week Estimated Hrs Per Day: .25 hour per day Patient and/or Family Agrees t: Yes Safety Risks/Education Patient Education: Gait Training, Transfer Techniques, Correct Positioning, Safety Issues Teaching Recipient: Patient Teaching Methods: Demonstration, Discussion Response to Teaching: Reinforcement Needed Discharge Recommendations Plan Patient will perform bed mobility and transfer training, balance and endurance training, functional strengthening, stair training, gait training, and education, to improve functional mobility and independence at home. Therapy Discharge Recommendati: Scheduled Assistance, Home & Family, Post Acute PT Time/GCodes Time In: 1330 Time Out: 1349 Total Billed Treatment Time: 19 Total Billed Treatment 1 visit EVL 19' CHEYENNE BROWN PT Apr 25, 2020 14:14
--- NOTE | 2020-04-25 14:19 | Progress Note ---
Subjective Date Seen by a Provider: Apr 25, 2020 Time Seen by a Provider: 14:00 Subjective/Events-last exam doing well. pain controlled. ambulating well. no fever/chills. Objective Exam Vital Signs Date Time Temp Pulse Resp B/P (MAP) Pulse Ox O2 Delivery O2 Flow Rate FiO2 04/25/20 12:41 96 Room Air 04/25/20 12:32 96 Room Air 04/25/20 08:27 36.8 62 20 173/70 (104) 96 Room Air 04/25/20 08:00 96 Room Air 04/24/20 23:30 36.9 60 18 138/61 (86) 93 Room Air 04/24/20 20:00 Room Air 04/24/20 16:00 36.4 58 20 145/59 (87) 98 Room Air 04/24/20 14:40 Room Air 04/24/20 14:40 62 18 191/77 (115) 97 Room Air 04/24/20 14:40 36.4 20 170/60 (96) 96 Room Air 04/24/20 14:30 20 172/62 (98) 96 Room Air 04/24/20 14:30 Room Air 04/24/20 14:20 20 151/54 (86) 96 Room Air I & O 04/25/20 07:00 Intake Total 3237.5 ml Balance 3237.5 ml Capillary Refill : Less Than 3 SecondsLess Than 3 Seconds General Appearance: No Apparent Distress HEENT: PERRL/EOMI Neck: Full Range of Motion Respiratory: Chest Non Tender, Normal Breath Sounds, Wheezing Cardiovascular: Regular Rate, Rhythm Gastrointestinal: normal bowel sounds, non tender, soft Extremity: Normal Capillary Refill, Other (wound clean/dry) Neurologic/Psychiatric: Alert, Oriented x3 Skin: Normal Color Lymphatic: No Adenopathy Results Lab Laboratory Tests 04/25/20 05:02: White Blood Count 6.3, Red Blood Count 3.31L, Hemoglobin 10.2L, Hematocrit 32L, Mean Corpuscular Volume 97, Mean Corpuscular Hemoglobin 31, Mean Corpuscular Hemoglobin Concent 32, Red Cell Distribution Width 13.0, Platelet Count 150, Mean Platelet Volume 10.9, Immature Granulocyte % (Auto) 0, Neutrophils (%) (Auto) 57, Lymphocytes (%) (Auto) 29, Monocytes (%) (Auto) 11, Eosinophils (%) (Auto) 2, Basophils (%) (Auto) 0, Neutrophils # (Auto) 3.6, Lymphocytes # (Auto) 1.9, Monocytes # (Auto) 0.7, Eosinophils # (Auto) 0.1, Basophils # (Auto) 0.0, Immature Granulocyte # (Auto) 0.0, Sodium Level 139, Potassium Level 3.9, Chloride Level 108H, Carbon Dioxide Level 23, Anion Gap 8, Blood Urea Nitrogen 7, Creatinine 0.74, Estimat Glomerular Filtration Rate > 60, BUN/Creatinine Ratio 9, Glucose Level 90, Calcium Level 8.3L, Corrected Calcium 8.9, Total Bilirubin 0.4, Aspartate Amino Transf (AST/SGOT) 17, Alanine Aminotransferase (ALT/SGPT) 17, Alkaline Phosphatase 72, Total Protein 5.4L, Albumin 3.3 Microbiology 04/24/20 Gram Stain - Final, Resulted 04/24/20 Anaerobic Culture, Resulted Pending 04/24/20 Surgical Culture, Resulted Pending 04/24/20 MRSA Screen - Final, Complete MRSA not isolated 04/20/20 Blood Culture - Preliminary, Resulted No growth Assessment/Plan Assessment/Plan Assess & Plan/Chief Complaint left great toe osteomyelitis. s/p amputation. ambulate. home soon. f/u office 2 weeks. gauze followed by natali followed by walking shoe daily. YANELI MEEHAN MD Apr 25, 2020 14:19
--- NOTE | 2020-04-25 14:21 | Discharge Inst-Surgical ---
D/C Lap Instructions-ZORAN Follow Up Appt in 2 weeks Activity as tolerated No driving for 24 hours No driving while on pain medications dressing change: gauze followed by kerlix followed by walking shoe daily. Regular Diet Symptoms to Report: Fever over 101 degree F, Nausea/Vomiting Infection Signs and Symptoms to report: Increased redness, Foul odor of wound, Increased drainage Bathing instructions: May shower Operative Area Clean/Dry; Keep incision clean/dry If any problems/questions: Contact your physician or go to Emergency Room YANELI MEEHAN MD Apr 25, 2020 14:21
--- NOTE | 2020-04-25 14:22 | Occupational Therapy Eval ---
OT Evaluation-General/PLF Medical Diagnosis Admission Date Apr 20, 2020 at 20:59 Medical Diagnosis: osteomyelitis left great toe Onset Date: Apr 25, 2020 Therapy Diagnosis Therapy Diagnosis: weakness Precautions Precautions/Isolations: Fall Prevention, Standard Precautions Referral Physician: Mitch Mariano Reason: Evaluation/Treatment Medical History Pertinent Medical History: CAD, PVD Current History Per H&P:"Patient is admitted with osteomyelitis of the left great toe. She began having problems with that toe several years ago secondary to fungus. Not seen her senior solutions workflow consultant in about a year until March 19. It was trimmed at that time and she began having increased erythema inflammation and pain in it afterwards. It progressed where she had cellulitis of the toe and of the leg upon admission yesterday x-ray reveals osteomyelitis of the distal phalanx. Is admitted for definitive care. And antibiotics" Social History Home: Single Level Current Living Status: Alone Entry Into Home: Stairs With Railing Steps Into Home: 5 ADL-Prior Level of Function SCALE: Activities may be completed with or without assistive devices. 8-Zsjzbgnihm-wzrxujz completes the activity by him/herself with no assistance from a helper. 5-Set-up or Clean-up Assistance-helper sets up or cleans up; patient completes activity. [place] assists only prior to or following the activity. 4-Supervision or Touching Assistance-helper provides verbal cues and/or touching/steadying and/or contact guard assistance as patient completes activity. Assistance may be provided throughout the activity or intermittently. 3-Partial/Moderate Assistance-helper does LESS THAN HALF the effort. [place] lifts, holds or supports trunk or limbs, but provides less than half the effort. 2-Substantial/Maximal Assistance-helper does MORE THAN HALF the effort. [place] lifts or holds trunk or limbs and provides more than half the effort. 6-Jeznmpfbo-hmugxr does ALL the effort. Patient does none of the effort to complete the activity. Or, the assistance of 2 or more helpers is required for the patient to complete the activity. If activity was not attempted, code reason: 7-Patient Refused. 9-Not Applicable-not attempted and the patient did not perform the activity before the current illness, exacerbation or injury. 10-Not Attempted due to Environmental Limitations-(lack of equipment, weather restraints, etc.). 88-Not Attempted due to Medical Conditions or Safety Concerns. ADL PLOF Comments Pt reports IND with all ADLs and functional mobility at PLOF, no AD/AE. Self Care: Independent Functional Cognition: Independent OT Current Status Subjective Pt using restroom at start of eval/tx, agreeable to OT. Pt reports no pain at this time. Mental Status/Objective Patient Orientation: Person, Place, Time, Situation Attachments: Other-See Comments (surgical shoe LLE) Current Glasses/Contacts: Yes Upper Extremity ROM WFL, BUE shoulder flexion to approx 150 degrees Upper Extremity Coordination WFL Upper Extremity Sensation WFL Upper Extremity Strength grossly 3+/5 ADL-Treatment Eating (QC): 6 (Pt reports eating lunch without difficulty.) On/Off Footwear (QC): 6 (Pt able to don RLE slip on shoe.) Toileting Hygiene (QC): 6 (Pt took self to bathroom, able to manage clothing and perform hygiene) Other Treatments Pt returning to EOB from bathroom, states she was able to use bathroom without difficulty. OT educated pt on purpose and benefit of OT, she verbalized understanding. Pt indicates she is discharging home on this date and has no concerns with completing ADLs upon returning home. PT agreeable to performing functional mobility in hallway, able to ambulate 200' with FWW at SBA, no LOB. Pt returned to her room, transferring to EOB. Pt has no further concerns for OT at this time. Post tx, pt seated EOB, call light in reach and all needs met. Education OT Patient Education: Correct positioning, Modified ADL techniques, Progress toward Goal/Update tx plan, Purpose of tx/functional activities, Rehab process Teaching Recipient: Patient Teaching Methods: Discussion Response to Teaching: Verbalize Understanding OT Skilled Nursing Goals Skilled Nursing Goals 1=Demonstrate adherence to instructed precautions during ADL tasks. 2=Patient will verbalize/demonstrate understanding of assistive devices/modifications for ADL. 3=Patient will improve strength/tolerance for activity to enable patient to perform ADL's. OT Education/Plan Problem List/Assessment Assessment: No Skilled OT Needs ID'd No skilled OT services indicated in this time, as pt is independent with ADLs and has no concerns with completing ADLs upon returning home. Discharge Recommendations Plan/Recommendations: Discharge/Goals Met Treatment Plan/Plan of Care Patient would benefit from OT for education, treatment and training to promote independence in ADL's, mobility, safety and/or upper extremity function for A DL's. Plan of Care: ADL Retraining Treatment Duration: Apr 25, 2020 Frequency: 1 time per week (eval only) Time/GCodes Start Time: 13:30 Stop Time: 13:49 Total Time Billed (hr/min): 19 Billed Treatment Time 1, ARIN MEJIA OT Apr 25, 2020 14:22
--- NOTE | 2020-04-25 17:49 | Physician Query Clarification ---
"Physician Query-General Query to Physician: The medical record reflects the following clinical scenario: History/Risk factors: Smoking, ETOH, Chronic illness Clinical Findings: Ht 167.7, Wt 50.3 = BMI of 17.9, Protein 5.4, Albumin Treatment: Regular diet with ensure supplements Question: What condition best reflects the above clinical scenario? Please document response in the Progress notes or Discharge Summary. 1. Underweight with BMI of 17.9 2. Other , with explanation of the clinical findings 3. Clinically undetermined, no explanation for the clinical findings Please remember a lack of response to the above will prompt a phone page by CDI/coding staff In responding to this query, please exercise your independent professional judgment. The purpose of this communication is to more accurately reflect the complexity of your patients condition. The fact that a question is asked does not imply that any particular answer is desired or expected. Thank you for timely response to this clarification. Helen Joseph, MSN, RN RN Specialist-Clinical Doc Improvement CD -Health Info [facility] [address] [facility] t: [phone] | f: [phone] If you are unable to reach me at my extension, I may be working from home. Please contact me at [phone] PHYSICIAN RESPONSE: Based on the clinical findings in the record, please respond to the query above on this document as an addendum. Physician Response: Physician Response 1 If you have questions please contact: Ship'S Officer: Ext: Thank you for your time and cooperation. Clinical Family Court Counsellor/Ship'S Officer This is a permanent part of the medical record HELEN JOSEPH Apr 25, 2020 17:49 MELQUIADES CARDONA DO Apr 26, 2020 04:34"
[2020-04-26] MEDS ORDERED: TROUGH ORDER-PHARMACY XX ONE (08:00)
== END 2020-04-25 15:45 | disposition home health service (06) | DRG 504 ==
LOC: EDUNIT# 17:27 → ER 17:31 → 4TH 20:59
PROVIDERS: ADMIT Internal Medicine; ATTEND Internal Medicine
PROC: 0Y6Q0Z0 Detachment at Left 1st Toe, Complete, Open Approach (ICD-10-PCS; principal; 2020-04-24 12:51)
DX: M86.8X7 Other osteomyelitis, ankle and foot (principal); Z68.1 Body mass index [BMI] 19.9 or less, adult; E78.00 Pure hypercholesterolemia, unspecified; M19.90 Unspecified osteoarthritis, unspecified site; F17.210 Nicotine dependence, cigarettes, uncomplicated; I25.10 Atherosclerotic heart disease of native coronary artery without angina pectoris; I73.9 Peripheral vascular disease, unspecified; Z20.822 Contact with and (suspected) exposure to COVID-19; R63.6 Underweight; Z79.82 Long term (current) use of aspirin
CPT/HCPCS: 36415; 73630; 80053; 80202; 83605; 85025; 85610; 85652; 85730; 86141; 87040; 87070; 87075; 87077; 87081; 87186; 87205; 87635; 93925; 96365; 96375

== ENCOUNTER 2020-05-08 12:13 | Emergency (ER) | payer MEDICARE ==
[~2020-05-08] VITALS: Ht 170.2 cm; Wt 50.3 kg
[~2020-05-08 12:13] MED LIST changes: +ACHD5005 PO; +AMLO-250 PO; +ASPI-1238 PO; +CARV6.252 PO; +CEPH500T PO; +LINA145C PO; +LOSA25TA41 PO; +POLY17PO54 PO; +ROSU20TA2 PO; +ROSU20TA32 PO
[2020-05-08 12:35] LABS: HEMATOCRIT 36 % (35-52); HEMOGLOBIN 11.8 G/DL (11.5-16.0); LYMPHOCYTES % (AUTO) 32 % (12-44); MEAN CORPUSCULAR HEMOGLOBIN 31 PG (25-34); MEAN CORPUSCULAR HGB CONC 33 G/DL (32-36); MEAN CORPUSCULAR VOLUME 96 FL (80-99); MEAN PLATELET VOLUME 10.8 FL (7.4-10.4); MONOCYTES % (AUTO) 11 % (0-12); NEUTROPHILS % (AUTO) 56 % (42-75); PLATELET COUNT 174 10^3/uL (130-400); WHITE BLOOD COUNT 7.3 10^3/uL (4.3-11.0)
[2020-05-08 12:36] LABS: BASOPHILS % (AUTO) 1 % (0-10); EOSINOPHILS # (AUTO) 0.1 10^3/uL (0.0-0.3); EOSINOPHILS % (AUTO) 1 % (0-10); LYMPHOCYTES # (AUTO) 2.3 X 10^3 (1.0-4.0); MONOCYTES # (AUTO) 0.8 X 10^3 (0.0-1.0); NEUTROPHILS # (AUTO) 4.1 X 10^3 (1.8-7.8)
--- NOTE | 2020-05-08 12:39 | ED Neurological Problem ---
General Chief Complaint: Neuro-Stroke Like Symptoms Stated Complaint: POSS. STROKE Nursing Triage Note: Patient reports she woke at 0900 this morning and was unable to speak or understand what anyone else was saying. She states this resolved around 1000. She reports she had one episode similar to this 1-2 months ago while she was writing a check and was unable to complete writing. She denies any other symptoms and states she feels normal now, ambulatory in the ED with a walker, speech is now normal. Nursing Sepsis Screen: No Definite Risk Source: patient History of Present Illness Date Seen by Provider: May 08, 2020 Time Seen by Provider: 12:14 Initial Comments 84-year-old female presenting from clinic after having an episode of difficulty speaking and understanding people this morning. She states that medical wants staff woke her up around 9 AM and at that time she had trouble trying to find the right words to say as well as understanding what the staff was trying to say to her. She thinks this lasted maybe an hour. She had something similar a few months ago where she had trouble writing and could not make out what she was trying to write. She thought she maybe has some weakness in her arms this morning as well. She feels like she is back to normal now and having no trouble. She had gone to the clinic and they referred her to the emergency department thinking that she had a TIA this morning. She had recent cardiology clearance for surgery 2 weeks ago at [facility]. She had TIA work up and evaluation midJuly 2019. Allergies and Home Medications Allergies Coded Allergies: No Known Drug Allergies (Unverified , 12/27/18) Home Medications Amlodipine Besylate 5 Mg Tablet, 5 MG PO DAILY, (Reported) Aspirin 81 Mg Tablet.dr, 81 MG PO DAILY, (Reported) Carvedilol 6.25 Mg Tablet, 6.25 MG PO BID, (Reported) Cephalexin 500 Mg Tablet, 500 MG PO TID Prescribed by: MELQUIADES CARDONA on 04/25/20 1036 Clopidogrel Bisulfate 75 Mg Tablet, 75 MG PO DAILY, (Reported) Hydrocodone Bit/Acetaminophen 1 Tab Tab, 1 EA PO Q4H PRN for PAIN-MODERATE (5-7) Prescribed by: MELQUIADES CARDONA on 04/25/20 1037 Linaclotide 145 Mcg Capsule, 145 MG PO DAILY, (Reported) Losartan Potassium 25 Mg Tablet, 25 MG PO DAILY Prescribed by: MELQUIADES CARDONA on 04/25/20 1036 Polyethylene Glycol 3350 17 Gm Powd.pack, 17 GM PO HS Prescribed by: MELQUIADES CARDONA on 04/25/20 1036 Rosuvastatin Calcium 20 Mg Tablet, 20 MG PO DAILY, (Reported) Patient Home Medication List Home Medication List Reviewed: Yes Review of Systems Review of Systems Constitutional: No chills, No diaphoresis, No dizziness, No fever Eyes: No Symptoms Reported Ears, Nose, Mouth, Throat: no symptoms reported Respiratory: no symptoms reported Cardiovascular: no symptoms reported Gastrointestinal: no symptoms reported Genitourinary: no symptoms reported Musculoskeletal: other (improving foot pain on left where she had recent toe amputation) Skin: no symptoms reported Psychiatric/Neurological: See HPI, Other (expressive aphasia at 9 am that lasted 30 minutes to an hour per patient) Endocrine: No Symptoms Reported Past Mgiadiv-Nmfnkq-Ooizid Hx Past Med/Social Hx: Reviewed Nursing Past Med/Soc Hx Patient Social History Alcohol Use: Denies Use Number of Drinks Today: GG Alcohol Beverage of Choice: Whiskey Smoking Status: Current Everyday Smoker Type Used: Cigarettes 2nd Hand Smoke Exposure: Yes Recent Infectious Disease Expo: No Recent Hopitalizations: No Immunizations Up To Date Tetanus Booster (TDap): Unknown Seasonal Allergies Seasonal Allergies: Yes Past Medical History Surgeries: Yes (LEFT CAROTID ARTERY, BILAT TKR, HEART SURGERY) Vascular Surgery Respiratory: No Currently Using CPAP: No Currently Using BIPAP: No Cardiac: Yes (PERIPHERAL VASCULAR DISEASE, 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) Atrial Fibrillation, Coronary Artery Disease, High Cholesterol, Hypertension, Peripheral Vascular Neurological: No Sexually Transmitted Disease: No HIV/AIDS: No Genitourinary: No Gastrointestinal: Yes Chronic Constipation Musculoskeletal: Yes Arthritis Endocrine: No HEENT: Yes (GLASSES, DENTURES) Loss of Vision: Denies Hearing Impairment: Hard of Hearing, Bilateral Hearing Aide Cancer: No Psychosocial: No Integumentary: No Blood Disorders: No Adverse Reaction/Blood Tranf: No (HAS HAD BLOOD WITH NO REACTION) Family Medical History No Pertinent Family Hx Physical Exam Vital Signs Vital Signs - First Documented 05/08/20 05/08/20 12:15 14:00 Temp 36.6 Pulse 60 Resp 16 B/P (MAP) 150/54 (86) Pulse Ox 99 O2 Delivery Room Air Capillary Refill : Less Than 3 Seconds Height, Weight, BMI Height: '" Weight: lbs. oz. kg; 17.00 BMI Method: General Appearance: WD/WN, no apparent distress HEENT: PERRL/EOMI Neck: non-tender, full range of motion, supple, normal inspection, carotid bruit (referred from heart) Respiratory: chest non-tender, lungs clear, normal breath sounds Cardiovascular: normal peripheral pulses, regular rate, rhythm, systolic murmur Peripheral Pulses: 2+ Carotid (R), 2+ Carotid (L), 2+ Radial Pulses (R), 2+ Radial Pulses (L) Gastrointestinal: normal bowel sounds, non tender, soft, no pulsatile mass Extremities: normal range of motion, normal capillary refill Neurologic/Psychiatric: pecan sheller II-XII nml as tested, no motor/sensory deficits, alert, normal mood/affect, oriented x 3 Crainal Nerves: normal hearing, normal speech, PERRL Coordination/Gait: normal finger to nose, normal gait Motor/Sensory: no motor deficit, no sensory deficit, no pronator drift Skin: normal color, warm/dry Stroke Onset of Symptoms Date of Onset of Symptoms: May 08, 2020 Time of Symptom Onset: 09:00 Onset of Symptoms: Yes (9 am when woke up from sleeping overnight) NIH Stroke Scale Assessment Select: Initial Level of Consciousness: 0=Alert (0), Level of Consciousness- Questions: 0=Answers both month/age (0), LOC Commands: 0=Performs both tasks (0), Gaze: Normal (0), Visual Anderson: 0=No visual loss (0), Facial Movement (Facial Paresis): 0=Normal symmetrical mnt (0), Motor Function-Arms Right: 0=No drift (0), Motor Function-Arms Left: 0=No drift (0), Motor Function-Legs Right: 0=No drift (0), Motor Function-Legs Left: 0=No drift (0), Limb Ataxia: 0=Absent (0), Sensory: 0=Normal:no loss (0), Best Language: 0=No aphasia (0), Dysarthria: 0=Normal (0), Extinction & Inattention: 0=No abnormality (0), Total: 0 Stroke Thrombolytic Exclusion Age 18 or Over: Yes Acute intenal hemorrhage: No History of CVA: No Uncontrolled Coagulation Defec: No Intracranial Hemorrhage: No Severe Hypertension: No GI or Bleed: No Subarachnoid Hemorrhage: No Intracranial Neoplasm/Aneurysm: No Oral Anticoagulants: Yes (Plavix and aspirin) Surgery or Trauma: Yes (left great toe amputation 2 weeks ago) Puncture of Non-Compressible V: No Recent CPR: No Diabetic Hemorrhagic Retinopat: No Organ Biopsy: No Recent Obstetric Delivery: No Glucose: No Significant Hepatic Dysfunctio: No NIH Stoke Scale >22: No Bacterial Endocarditis: No Pericarditis: No Improving Symptoms: Yes Platelets: No TPA Contraindication: Yes (symptoms resolved lpta in ED) IV - TPa Received IV - TPa Procedure Performed?: No (symptoms resolved prior to arrival in ED) Progress/Results/Core Measures Results/Orders Lab Results Laboratory Tests Test 05/08/20 12:23 05/08/20 13:20 Range/Units White Blood Count 7.3 4.3-11.0 10^3/uL Red Blood Count 3.77 L 4.35-5.85 10^6/uL Hemoglobin 11.8 11.5-16.0 G/DL Hematocrit 36 35-52 % Mean Corpuscular Volume 96 80-99 FL Mean Corpuscular Hemoglobin 31 25-34 PG Mean Corpuscular Hemoglobin Concent 33 32-36 G/DL Red Cell Distribution Width 13.2 10.0-14.5 % Platelet Count 174 130-400 10^3/uL Mean Platelet Volume 10.8 H 7.4-10.4 FL Immature Granulocyte % (Auto) 0 % Neutrophils (%) (Auto) 56 42-75 % Lymphocytes (%) (Auto) 32 12-44 % Monocytes (%) (Auto) 11 0-12 % Eosinophils (%) (Auto) 1 0-10 % Basophils (%) (Auto) 1 0-10 % Neutrophils # (Auto) 4.1 1.8-7.8 X 10^3 Lymphocytes # (Auto) 2.3 1.0-4.0 X 10^3 Monocytes # (Auto) 0.8 0.0-1.0 X 10^3 Eosinophils # (Auto) 0.1 0.0-0.3 10^3/uL Basophils # (Auto) 0.0 0.0-0.1 10^3/uL Immature Granulocyte # (Auto) 0.0 0.0-0.1 10^3/uL Prothrombin Time 13.4 12.2-14.7 SEC INR Comment 1.0 0.8-1.4 Activated Partial Thromboplast Time 28 24-35 SEC Sodium Level 140 135-145 MMOL/L Potassium Level 4.0 3.6-5.0 MMOL/L Chloride Level 105 98-107 MMOL/L Carbon Dioxide Level 26 21-32 MMOL/L Anion Gap 9 5-14 MMOL/L Blood Urea Nitrogen 10 7-18 MG/DL Creatinine 0.84 0.60-1.30 MG/DL Estimat Glomerular Filtration Rate > 60 BUN/Creatinine Ratio 12 Glucose Level 97 70-105 MG/DL Calcium Level 9.6 8.5-10.1 MG/DL Corrected Calcium 9.6 8.5-10.1 MG/DL Magnesium Level 2.3 1.6-2.4 MG/DL Total Bilirubin 0.3 0.1-1.0 MG/DL Aspartate Amino Transf (AST/SGOT) 19 5-34 U/L Alanine Aminotransferase (ALT/SGPT) 15 0-55 U/L Alkaline Phosphatase 113 40-136 U/L Troponin I < 0.30 <0.30 NG/ML Total Protein 6.8 6.4-8.2 GM/DL Albumin 4.0 3.2-4.5 GM/DL Urine Color YELLOW Urine Clarity SL CLOUDY Urine pH 6.5 5-9 Urine Specific [place] 1.025 H 1.016-1.022 Urine Protein NEGATIVE NEGATIVE Urine Glucose (UA) NEGATIVE NEGATIVE Urine Ketones NEGATIVE NEGATIVE Urine Nitrite NEGATIVE NEGATIVE Urine Bilirubin NEGATIVE NEGATIVE Urine Urobilinogen 0.2 < = 1.0 MG/DL Urine Leukocyte Esterase TRACE H NEGATIVE Urine RBC (Auto) NEGATIVE NEGATIVE Urine RBC NONE /HPF Urine WBC 0-2 /HPF Urine Squamous Epithelial Cells 25-50 H /HPF Urine Crystals PRESENT H /LPF Urine Calcium Oxalate Crystals RARE H /LPF Urine Bacteria FEW H /HPF Urine Casts NONE /LPF Urine Mucus LARGE H /LPF Urine Yeast MODERATE H /HPF Urine Culture Indicated NO My Orders Orders - FRANCISCO DEMPSEY MD Cbc With Automated Diff (05/08/20 12:17) Protime With Inr (05/08/20 12:17) Partial Thromboplastin Time (05/08/20 12:17) Comprehensive Metabolic Panel (05/08/20 12:17) Troponin I Fs (05/08/20 12:17) Ua Culture If Indicated (05/08/20 12:17) Chest 1 View Ap/Pa Only (05/08/20 12:17) Ekg Tracing (05/08/20 12:17) Accucheck Stat ONCE (05/08/20 12:17) Ed Iv/Invasive Line Start (05/08/20 12:17) Vital Signs Stroke Patient Q15M (05/08/20 12:17) Ct Head Wo-R/O Stroke (05/08/20 12:17) O2 (05/08/20 12:17) Intake & Output 06,14,22 (05/08/20 12:17) Monitor-Rhythm Ecg Trace Only (05/08/20 12:17) Dysphagia Screening Tool (05/08/20 12:17) Magnesium (05/08/20 12:17) Vital Signs/I&O 05/08/20 05/08/20 12:15 14:00 Temp 36.6 Pulse 60 73 Resp 16 18 B/P (MAP) 150/54 (86) 148/82 Pulse Ox 99 98 O2 Delivery Room Air Blood Pressure Mean: 86 Progress Progress Note #1: Progress Note Stroke CT ordered on arrival to the department. Ordered labs as well as electrocardiogram chest x-ray and NIH scale. Swallow study to be done at the bedside. On initial exam her NIH stroke scale is 0. She states that all of her symptoms resolved prior to coming to the emergency department. She woke up with symptoms at 9 AM but by 10 AM everything had resolved. Electrocardiogram shows sinus rhythm without acute ST elevation. Differential diagnosis would include acute stroke, TIA, myocardial infarction, pneumonia, UTI, electrolyte imbalance Progress Note #2: Time: 13:13 Progress Note Labs and CT scan are all negative without acute findings for stroke or bleeding. Page placed to neurologist for consult about medical management in light of the patient already being on aspirin and Plavix. Dr. Mackenzie was the on-call neurologist at when I called the neurology stroke consultation number. Although patient reports a history of atrial flutter on medical records from [facility] [place] there is no note of that and the cardiology consult recently. The Plavix is on board for stenting of the peripheral arteries. She is already on Crestor, aspirin, Plavix for trying to maximize her medications for TIA. She continues to smoke and states that she never give that up because it is one of her few pleasures and she feels like she would have more problems if she tried to stop smoking. Dr. Mackenzie did not have any images or direct information to review other than what I verbally told him. Based on what I was reviewing with him he stated that it sounded like the patient was already on maximal medical management. Other than stopping smoking and possibly referring to cardiology and primary care to decide if she should be on a stronger blood thinner to replace the Plavix and aspirin he did not have any immediate recommendation. With the patient having no further symptoms currently will discharge back to [facility] [place] with instructions to check with PCP and or cardiology about possibly switching over to oral anticoagulant to replace Plavix and aspirin. Counseled on follow-up and return precautions. Progress Note #3: Time: 13:50 Progress Note Reviewed findings and consultation results with the patient. Her urinalysis from the came back and did not show any definite signs of UTI. This was to be expected since she denied symptoms of UTI but just to cover bases the UA was the last test that was holding the patient from discharge. When the negative urinalysis came back the patient was discharged back to [facility] [place] with instructions as above to check with Dr. Manriquez 90-year cardiology about whether she would be a candidate to switch to a stronger oral anticoagulant or if she just needs to continue the medicine she is on and consider stop smoking. Initial ECG Impression Date: May 08, 2020 Initial ECG Impression Time: 12:39 Initial ECG Rate: 59 Initial ECG Rhythm: Normal Sinus Initial ECG Comparisson: Unchanged Comment Normal sinus rhythm with a heart rate of 59 bpm. NC interval 159 ms. Probable LVH with secondary repolarization abnormalities. Anterior Q waves possibly due to the LVH and leads V1, V2. No acute ST elevation. QT interval 389 ms with a QTc interval 386 ms. This appears similar to prior tracings in the system. Diagnostic Imaging Diagonstic Imaging: CT Plain Films/CT/US/NM/MRI: head Comments [facility] [place], [place] NAME: PEPPER CARR [facility] REC#: [id number] PT STATUS: DEP ER : 1935 PHYSICIAN: FRANCISCO DEMPSEY MD ADMIT DATE: 05/08/20/ER FS Signed Date of Exam:05/08/20 CT HEAD WO-R/O STROKE PROCEDURE: CT head without, r/o stroke. TECHNIQUE: Multiple contiguous axial images were obtained through the brain without the use of intravenous contrast. Auto Exposure Controls were utilized during the CT exam to meet ALARA standards for radiation dose reduction. INDICATION: Weakness. COMPARISON: Prior head CT from 09/03/2019. FINDINGS: The ventricles and sulci are stable in appearance. There are periventricular and subcortical white matter signal abnormalities, consistent with chronic microvascular ischemia. No sulcal effacement or midline shift is identified. No acute intra-axial or extra-axial hemorrhage is detected. The cisterns are patent. The visualized paranasal sinuses are clear. IMPRESSION: Stable chronic changes. No acute intracranial process is detected. Dictated by: Dictated on workstation # [id number] Dict: 05/08/20 1234 Trans: 05/08/20 1626 [id number] Interpreted by: HELDER MINOR MD Electronically signed by: HELDER MINOR MD 05/08/20 1626 Diagonstic Imaging: Xray Plain Films/CT/US/NM/MRI: chest Comments [facility] [place] [place] NAME: PEPPER CARR [facility] REC#: [id number] PT STATUS: REG ER : 1935 PHYSICIAN: FRANCISCO DEMPSEY MD ADMIT DATE: 05/08/20/ER FS Signed Date of Exam:05/08/20 CHEST 1 VIEW AP/PA ONLY INDICATION: Weakness. Frontal chest obtained at 12:32 p.m. Heart and mediastinal silhouette are normal in appearance. There is hyperinflation compatible with COPD. There is no focal infiltrate or pneumothorax or pleural fluid. There is calcified granuloma in the right midlung. IMPRESSION: Hyperinflation compatible with COPD. No focal infiltrate. Dictated by: Dictated on workstation # [id number] Dict: 05/08/20 1246 Trans: 05/08/20 1321 [facility] [id number] Interpreted by: TALYA LUND MD Electronically signed by: TALYA LUND MD 05/08/20 1321 Departure Impression Primary Impression: TIA on medication Disposition: 01 HOME, SELF-CARE Condition: Stable Departure-Patient Inst. Decision time for Depature: 13:53 Referrals: TYSHAWN STREET MD (PCP/Family) Primary Care Physician Patient Instructions: Transient Ischemic Attack (DC) Add. Discharge Instructions: Check back with Dr. Street and possibly with Cardiology about your anticoagulation (blood thinner) medicine. Currently you are on the appropriate medicines of Aspirin, Plavix and Crestor. Your doctor could consider changing you from the Aspirin and Plavix to take a stonger anticoagulation medicine such as Warfarin, Eliquis, Xarelto or other blood thinner. Stopping smoking would help lower your risk for further stroke or TIA events. All discharge instructions reviewed with patient and/or family. Voiced understanding. FRANCISCO DEMPSEY MD May 08, 2020 12:39
[2020-05-08 12:48] LABS: PROTHROMBIN TIME PATIENT 13.4 SEC (12.2-14.7)
--- NOTE | 2020-05-08 12:51 | Diagnostic Imaging Report ---
INDICATION: Weakness. Frontal chest obtained at 12:32 p.m. Heart and mediastinal silhouette are normal in appearance. There is hyperinflation compatible with COPD. There is no focal infiltrate or pneumothorax or pleural fluid. There is calcified granuloma in the right midlung. IMPRESSION: Hyperinflation compatible with COPD. No focal infiltrate. Dictated by: Dictated on workstation # [id number]
[2020-05-08 13:05] LABS: ALANINE AMINOTRANSFERASE 15 U/L (0-55); ALKALINE PHOSPHATASE 113 U/L (40-136); BILIRUBIN,TOTAL 0.3 MG/DL (0.1-1.0); BUN/CREATININE RATIO 12; CALCIUM 9.6 MG/DL (8.5-10.1); CARBON DIOXIDE 26 MMOL/L (21-32); CHLORIDE 105 MMOL/L (98-107); CREATININE SERUM 0.84 MG/DL (0.60-1.30); GFR ESTIMATED > 60; GLUCOSE 97 MG/DL (70-105); SODIUM 140 MMOL/L (135-145)
[2020-05-08 13:06] LABS: TOTAL PROTEIN 6.8 GM/DL (6.4-8.2)
[2020-05-08 13:50] LABS: BILIRUBIN,URINE NEGATIVE (NEGATIVE); CLARITY,URINE SL CLOUDY; COLOR,URINE YELLOW; GLUCOSE, URINE (UA) NEGATIVE (NEGATIVE); KETONES,URINE NEGATIVE (NEGATIVE); LEUKOCYTE ESTERASE ,URINE TRACE (NEGATIVE); NITRITE,URINE NEGATIVE (NEGATIVE); PH,URINE 6.5 (5-9); PROTEIN,URINE NEGATIVE (NEGATIVE); WBC,URINE 0-2 /HPF
[2020-05-08 13:51] LABS: BACTERIA,URINE FEW /HPF; CALCIUM OXALATE CRYSTALS,UR RARE /LPF; SQUAMOUS EPITHELIAL CELL,UR 25-50 /HPF; YEAST,URINE MODERATE /HPF
[2020-05-08 14:00] VITALS: BP 148/82
== END 2020-05-08 14:00 | disposition home or self-care (01) ==
LOC: EDUNIT# 12:13 → ER FS 12:15
DX: G45.9 Transient cerebral ischemic attack, unspecified (principal); I10 Essential (primary) hypertension; I25.10 Atherosclerotic heart disease of native coronary artery without angina pectoris; E78.00 Pure hypercholesterolemia, unspecified; F17.210 Nicotine dependence, cigarettes, uncomplicated; Z79.82 Long term (current) use of aspirin
CPT/HCPCS: 36415; 70450; 71045; 80053; 81000; 83735; 84484; 85025; 85610; 85730; 93005; 93041

== ENCOUNTER → 2020-05-17 | Outpatient (CLI) | payer MEDICARE | LOC: WOUNDCARE 09:53 | PROVIDERS: ATTEND Surgery | DX: T81.31XA Disruption of external operation (surgical) wound, not elsewhere classified, initial encounter (principal); L97.522 Non-pressure chronic ulcer of other part of left foot with fat layer exposed; I70.245 Atherosclerosis of native arteries of left leg with ulceration of other part of foot; T65.222A Toxic effect of tobacco cigarettes, intentional self-harm, initial encounter; F17.218 Nicotine dependence, cigarettes, with other nicotine-induced disorders; Z89.412 Acquired absence of left great toe | CPT/HCPCS: A6266; G0463; 99214 ==

== ENCOUNTER → 2020-05-23 | Outpatient (CLI) | payer MEDICARE | LOC: WOUNDCARE 10:31 | PROVIDERS: ATTEND Surgery | DX: L97.522 Non-pressure chronic ulcer of other part of left foot with fat layer exposed (principal); T81.31XA Disruption of external operation (surgical) wound, not elsewhere classified, initial encounter; L03.116 Cellulitis of left lower limb; I70.245 Atherosclerosis of native arteries of left leg with ulceration of other part of foot; T65.222A Toxic effect of tobacco cigarettes, intentional self-harm, initial encounter; F17.218 Nicotine dependence, cigarettes, with other nicotine-induced disorders; Z89.412 Acquired absence of left great toe | CPT/HCPCS: 11042; G0463 ==

== ENCOUNTER 2020-05-25 09:48 | Emergency (ER) | payer MEDICARE ==
[~2020-05-25] VITALS: Ht 167.7 cm; Wt 50.3 kg
[2020-05-25] MEDS ORDERED: dilTIAZem DRIP PRE-MIX 125 ML IV STA (10:18)
--- NOTE | 2020-05-25 10:22 | ED General ---
General Chief Complaint: Dizziness/Syncope Stated Complaint: LOW BLOOD BLOOD PRESSURE Nursing Triage Note: Patient reports she has been feeling lightheaded when she walks since yesterday. States her home health nurse suggested she come to the ED today because her blood pressure was low. Nursing Sepsis Screen: No Definite Risk Source of Information: Patient History of Present Illness Date Seen by Provider: May 25, 2020 Time Seen by Provider: 09:48 Initial Comments 84-year-old female presenting with her daughter to the emergency department. She states that she has been more weak and dizzy especially with standing in the last few days. Thursday night when she had gone to bed she had chest pains going into her left arm. She took ibuprofen and went to sleep. She has no complaint of fever or chills, nausea, vomiting, diarrhea, burning with urination, cough or shortness of breath. She states that she has chronic pain going into both of her arms and across her upper abdomen. She feels like she might be dehydrated because she does not drink enough water. She has been fighting open wound on her left foot from toes amputation. She had previous osteomyelitis letter and continues on antibiotics. She is scheduled to have a CT scan evaluating the blood flow to her lower extremities this next week. She is following with a Supervisor Hardboard at [facility] in [place], Dr. Aaron Willingham. He specializes in peripheral vascular disease and interventional cardiology. Home health nurse and her Daughter advised her to come in to the ED today because she was having the light headed sensation and feeling like she would almost pass out when she first stands up. Her daughter was also concerned about the episode from Thursday night when she had chest pain and patient told her daughter that she was not expecting to wake up morning because she thought she maybe had a heart attack overnight with the chest pain into her left arm. Dr. Street recently stopped her Losartan because he felt her blood pressure was getting too low. He has her continuing to take Amlodipine and Carvedilol. Allergies and Home Medications Allergies Coded Allergies: No Known Drug Allergies (Unverified , 12/27/18) Home Medications Amlodipine Besylate 5 Mg Tablet, 5 MG PO DAILY, (Reported) Aspirin 81 Mg Tablet.dr, 81 MG PO DAILY, (Reported) Carvedilol 6.25 Mg Tablet, 6.25 MG PO BID, (Reported) Cephalexin 500 Mg Tablet, 500 MG PO TID Prescribed by: MELQUIADES CARDONA on 04/25/20 1036 Clopidogrel Bisulfate 75 Mg Tablet, 75 MG PO DAILY, (Reported) Hydrocodone Bit/Acetaminophen 1 Tab Tab, 1 EA PO Q4H PRN for PAIN-MODERATE (5-7) Prescribed by: MELQUIADES CARDONA on 04/25/20 1037 Linaclotide 145 Mcg Capsule, 145 MG PO DAILY, (Reported) Losartan Potassium 25 Mg Tablet, 25 MG PO DAILY Prescribed by: MELQUIADES CARDONA on 04/25/20 1036 Polyethylene Glycol 3350 17 Gm Powd.pack, 17 GM PO HS Prescribed by: MELQUIADES CARDONA on 04/25/20 1036 Rosuvastatin Calcium 20 Mg Tablet, 20 MG PO DAILY, (Reported) Patient Home Medication List Home Medication List Reviewed: Yes Review of Systems Review of Systems Constitutional: No chills, No diaphoresis; dizziness (with standing and changing positions); No fever; malaise EENTM: no symptoms reported Respiratory: no symptoms reported Cardiovascular: see HPI Gastrointestinal: no symptoms reported Genitourinary: no symptoms reported Musculoskeletal: see HPI Skin: other (chronic wound to left foot from recent [place] Toe amputation on April 24, 2020) Psychiatric/Neurological: See HPI; Denies Headache; Other (near syncope with standing) Hematologic/Lymphatic: Easy Bruising (taking plavix and aspirin) Past Gwefyhq-Hoxhtv-Cjnmpn Hx Past Med/Social Hx: Reviewed Nursing Past Med/Soc Hx Patient Social History Alcohol Use: Denies Use Number of Drinks Today: GG Alcohol Beverage of Choice: Whiskey Smoking Status: Current Everyday Smoker Type Used: Cigarettes 2nd Hand Smoke Exposure: Yes Recent Infectious Disease Expo: No Recent Hopitalizations: No Immunizations Up To Date Tetanus Booster (TDap): Unknown Seasonal Allergies Seasonal Allergies: Yes Past Medical History Surgeries: Yes (LEFT CAROTID ARTERY, BILAT TKR, HEART SURGERY) Vascular Surgery Respiratory: No Currently Using CPAP: No Currently Using BIPAP: No Cardiac: Yes (PERIPHERAL VASCULAR DISEASE, 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) Atrial Fibrillation, Coronary Artery Disease, High Cholesterol, Hypertension, Peripheral Vascular Neurological: No Sexually Transmitted Disease: No HIV/AIDS: No Genitourinary: No Gastrointestinal: Yes Chronic Constipation Musculoskeletal: Yes Arthritis Endocrine: No HEENT: Yes (GLASSES, DENTURES) Loss of Vision: Denies Hearing Impairment: Hard of Hearing, Bilateral Hearing Aide Cancer: No Psychosocial: No Integumentary: No Blood Disorders: No Adverse Reaction/Blood Tranf: No (HAS HAD BLOOD WITH NO REACTION) Family Medical History No Pertinent Family Hx Physical Exam Vital Signs Vital Signs - First Documented 05/25/20 09:58 Temp 36.3 Pulse 140 Resp 16 B/P (MAP) 109/49 (69) Pulse Ox 98 O2 Delivery Room Air Capillary Refill : Less Than 3 Seconds Height, Weight, BMI Height: '" Weight: lbs. oz. kg; 17.00 BMI Method: General Appearance: No Apparent Distress, Thin HEENT: Pharynx Normal Neck: Non Tender, Supple Respiratory: Chest Non Tender, No Accessory Muscle Use, No Respiratory Distress, Decreased Breath Sounds Cardiovascular: Normal Peripheral Pulses (radial 2+ bilateral), Irregularly Irregular, Tachycardia Gastrointestinal: Normal Bowel Sounds, No Pulsatile Mass, Non Tender, Soft Rectal: Deferred Extremity: No Pedal Edema, Slow Capillary Refill Neurologic/Psychiatric: Alert, Oriented x3, tie inspector II-XII Norm as Tested Skin: Normal Color, Warm/Dry Progress/Results/Core Measures Suspected Sepsis Recent Fever Within 48 Hours: No Infection Criteria Present: Documented Infection New/Unexplained Altered Menta: No Sepsis Screen: No Definite Risk SIRS Temperature: Pulse: 140 Respiratory Rate: 16 Laboratory Tests 05/25/20 10:05: White Blood Count 10.4 Blood Pressure 109 /49 Mean: 69 Laboratory Tests 05/25/20 10:05: Creatinine 0.94, INR Comment 1.0, Platelet Count 239, Total Bilirubin 0.3 Results/Orders Lab Results Laboratory Tests Test 05/25/20 10:05 05/25/20 10:25 Range/Units White Blood Count 10.4 4.3-11.0 10^3/uL Red Blood Count 3.97 L 4.35-5.85 10^6/uL Hemoglobin 12.2 11.5-16.0 G/DL Hematocrit 38 35-52 % Mean Corpuscular Volume 95 80-99 FL Mean Corpuscular Hemoglobin 31 25-34 PG Mean Corpuscular Hemoglobin Concent 32 32-36 G/DL Red Cell Distribution Width 13.0 10.0-14.5 % Platelet Count 239 130-400 10^3/uL Mean Platelet Volume 10.7 H 7.4-10.4 FL Immature Granulocyte % (Auto) 1 % Neutrophils (%) (Auto) 59 42-75 % Lymphocytes (%) (Auto) 30 12-44 % Monocytes (%) (Auto) 8 0-12 % Eosinophils (%) (Auto) 1 0-10 % Basophils (%) (Auto) 1 0-10 % Neutrophils # (Auto) 6.2 1.8-7.8 X 10^3 Lymphocytes # (Auto) 3.2 1.0-4.0 X 10^3 Monocytes # (Auto) 0.9 0.0-1.0 X 10^3 Eosinophils # (Auto) 0.1 0.0-0.3 10^3/uL Basophils # (Auto) 0.1 0.0-0.1 10^3/uL Immature Granulocyte # (Auto) 0.1 0.0-0.1 10^3/uL Prothrombin Time 13.8 12.2-14.7 SEC INR Comment 1.0 0.8-1.4 Activated Partial Thromboplast Time 28 24-35 SEC Sodium Level 136 135-145 MMOL/L Potassium Level 3.6 3.6-5.0 MMOL/L Chloride Level 105 98-107 MMOL/L Carbon Dioxide Level 21 21-32 MMOL/L Anion Gap 10 5-14 MMOL/L Blood Urea Nitrogen 18 7-18 MG/DL Creatinine 0.94 0.60-1.30 MG/DL Estimat Glomerular Filtration Rate 57 BUN/Creatinine Ratio 19 Glucose Level 106 H 70-105 MG/DL Calcium Level 9.6 8.5-10.1 MG/DL Corrected Calcium 9.6 8.5-10.1 MG/DL Magnesium Level 2.2 1.6-2.4 MG/DL Total Bilirubin 0.3 0.1-1.0 MG/DL Aspartate Amino Transf (AST/SGOT) 15 5-34 U/L Alanine Aminotransferase (ALT/SGPT) 15 0-55 U/L Alkaline Phosphatase 155 H 40-136 U/L Troponin I 0.63 *H <0.30 NG/ML Pro-B-Type Natriuretic Peptide 52083.0 H <75.0 PG/ML Total Protein 6.9 6.4-8.2 GM/DL Albumin 4.0 3.2-4.5 GM/DL Urine Color YELLOW Urine Clarity CLEAR Urine pH 6.5 5-9 Urine Specific [place] 1.015 L 1.016-1.022 Urine Protein NEGATIVE NEGATIVE Urine Glucose (UA) NEGATIVE NEGATIVE Urine Ketones NEGATIVE NEGATIVE Urine Nitrite NEGATIVE NEGATIVE Urine Bilirubin NEGATIVE NEGATIVE Urine Urobilinogen 0.2 < = 1.0 MG/DL Urine Leukocyte Esterase NEGATIVE NEGATIVE Urine RBC (Auto) NEGATIVE NEGATIVE Urine RBC NONE /HPF Urine WBC 0-2 /HPF Urine Squamous Epithelial Cells 5-10 /HPF Urine Crystals NONE /LPF Urine Bacteria NEGATIVE /HPF Urine Casts PRESENT /LPF Urine Hyaline Casts 5-10 H /LPF Urine Mucus NEGATIVE /LPF Urine Yeast FEW H /HPF Urine Culture Indicated NO My Orders Orders - FRANCISCO DEMPSEY MD Cbc With Automated Diff (05/25/20 10:15) Magnesium (05/25/20 10:15) Chest 1 View Ap/Pa Only (05/25/20 10:15) Ekg Tracing (05/25/20 10:15) Comprehensive Metabolic Panel (05/25/20 10:15) Protime With Inr (05/25/20 10:15) Partial Thromboplastin Time (05/25/20 10:15) O2 (05/25/20 10:15) Monitor-Rhythm Ecg Trace Only (05/25/20 10:15) Ed Iv/Invasive Line Start (05/25/20 10:15) Troponin I Fs (05/25/20 10:15) Probnp Fs (05/25/20 10:15) Diltiazem Injection (Cardizem Injection) (05/25/20 10:30) Ua Culture If Indicated (05/25/20 10:17) Diltiazem Drip Pre-Mix (Cardizem Drip Pr (05/25/20 10:18) Ns Iv 500 Ml (Sodium Chloride 0.9%) (05/25/20 10:23) Heparin Drip 46458 Unit/500ml (Heparin (05/25/20 11:45) Ns (Ivpb) (Sodium Chloride 0.9% Ivpb Bag (05/25/20 11:58) Medications Given in ED Current Medications Medications Dose Ordered Sig/Kaela Route Start Time Stop Time Status Last Admin Dose Admin Diltiazem HCl 10 mg ONCE ONCE IVP 05/25/20 10:30 05/25/20 10:31 DC 05/25/20 10:36 10 MG Heparin Sodium/ Dextrose 500 ml @ 0 mls/hr Q0M ONCE IV 05/25/20 11:45 05/25/20 11:46 DC 05/25/20 12:17 12 MLS/HR Vital Signs/I&O 05/25/20 09:58 Temp 36.3 Pulse 140 Resp 16 B/P (MAP) 109/49 (69) Pulse Ox 98 O2 Delivery Room Air Capillary Refill : Less Than 3 Seconds Blood Pressure Mean: 69 Progress Note #1: Progress Note Placed on cardiac patient monitor for her near syncope and light headed complaints with standing. Initially she is in atrial fibrillation with a rate of 120s. Obtain ECG, labs with cardiac enzymes, CXR, UA. Give 500 mL IVF bolus for hydration and with her atrial fibrillation with fast rate as well as complaint of near syncope with standing. Try Diltiazem 10 mg IV bolus to see if that helps her rte without dropping her pressure too much. If needed she may have to be on a drip at 5 mg/hr. Differential diagnosis includes dehydration, uncontrolled atrial fibrillation, pneumonia, congestive heart failure, renal failure, anemia, urinary tract infection, recent myocardial infarction Progress Note #2: Time: 11:13 Progress Note After diltiazem 10 mg bolus her heart rate did come under 100 but continued in atrial fibrillation on patient monitor. BP remained stable 119/54. Labs show stable CBC without acute significant abnormality. Chemistry has mild elevation of her BUN to 18, Cr to 0.97 and GFR 57. She has normal coags. her Troponin I is slightly elevated at 0.63 and proBNP is elevated at 11,428. CXR stable with COPD changes but no infiltrate or effusion. With her chest pain episode Thursday night into morning she likely had a heart attack then causing her Troponin to bump and contributing to her near syncope and feeling light headed and dizzy with standing in last few days. Progress Note #3: Progress Note 1121 after speaking with the patient and daughter they wanted to help me talk to the cardiology and staff at [facility] about her condition. Especially if she might be an admission. I called to the [facility] transfer center and spoke with MIRNA Mina. She took the basic information and will call me back after reaching out to the transfer physician and cardiology as needed. 1135 [facility] transfer center called back and I spoke with Dr. Gamboa the lalo tripathi physician on today. He took report on the patient and recommended starting heparin as well as starting the diltiazem at a low rate drip to help keep for heart rate under 100 bpm. He accepted the patient in transfer for cardiology evaluation and treatment for possible non-STEMI from Thursday night and uncontrolled atrial fibrillation at 1144. Will call back once a bed is available. Updated pt and daughter. Progress Note #4: Time: 12:38 Progress Note UA clear of infection. 1251 EMS here to transport pt to [facility]. She has been stable on Diltiazem drip but it was started at 2.5 mg/hr and HR is now more consistently over 100 so will increase to 5 mg/hr for the transfer. ECG Initial ECG Impression Date: May 25, 2020 Initial ECG Impression Time: 09:52 Initial ECG Rate: 121 Initial ECG Rhythm: A Fib/Flutter Initial ECG Comparisson: Changed Comment Atrial fibrillation with a heart rate of 121 bpm. Probable LVH with secondary repolarization abnormality. Anterior Q waves possibly secondary to the LVH. ST depression throughout diffuse leads. No ST elevation. QT interval 293 ms with a QTc interval 416 ms. This is a change from her last electrocardiogram on May 082020 where she was in a sinus rhythm and a heart rate of 59. Diagnostic Imaging Diagonstic Imaging: Xray Plain Films/CT/US/NM/MRI: chest Comments NAME: PEPPER [facility] REC#: [id number] PT STATUS: REG ER : 1935 PHYSICIAN: FRANCISCO DEMPSEY MD ADMIT DATE: 05/25/20/ER FS Draft Date of Exam:05/25/20 CHEST 1 VIEW AP/PA ONLY Clinical Indications: Patient fell like she was going to pass out. Exam: Portable chest x-ray upright view. Comparisons: Chest x-ray dated 05/08/2020. Findings: Lungs/pleura: Hyperinflated lungs are seen. There is stable increased lung markings throughout both lungs. There is no interval lung infiltrate. There is no pneumothorax. There is no pleural effusion. Mediastinum: Unremarkable. Pulmonary vasculature: Unremarkable. Heart: There is stable mild cardiomegaly. Mitral annular calcification seen overlying the region of the heart. Bones/extrathoracic soft tissue: Unremarkable. Impression: 1: Stable chest x-ray exam with no interval radiographic evidence of acute cardiopulmonary process. 2: COPD lung changes. Dictated on workstation # [id number] Dict: 05/25/20 1100 Trans: 05/25/20 1106 [facility] [id number] Interpreted by: RAY COLE MD Electronically signed by: Reviewed: Reviewed by Me (reviewed radiology report) Departure Impression Primary Impression: Non-ST elevated myocardial infarction Additional Impressions: Postural dizziness with near syncope Atrial fibrillation with tachycardic ventricular rate Elevated brain natriuretic peptide (BNP) level Disposition: XFER SHT-TRM HOSP Condition: Stable Transfer Transfer Reason: Patient preference Time Spoke to Accepting Phy: 11:44 Transfer Progress Notes 1121 call placed to [facility] Transfer line and spoke with MIRNA Mina. She took the information and will work on contacting transfer doc and cardiology as needed. 1135 MIRNA Mina, with [facility] Transfer line called back with Dr. Gamboa the transfer physician on the line. He took report on the patient and recommended starting heparin for additional anticoagulation beyond the aspirin and plavix she has on board. Will start low dose Diltiazem drip since she responded well to initial bolus dose and try to keep her rate under 100 bpm to help with stress and metabolic demand on heart. at 1144 he was accepting pt and will work on placement. Will try to find a bed at [facility] since it is closest to [place] but if not available there may be another facility in [place]. I did update pt and her daughter about transfer and possible bed placement at [facility] but may be other facility within [facility] depending on bed availability and they were ok with that. Transfer Facility: [facility] Method of Transfer: EMS Departure-Patient Inst. Referrals: TYSHAWN STREET MD (PCP/Family) Primary Care Physician FRANCISCO DEMPSEY MD May 25, 2020 10:22
[2020-05-25] MEDS ORDERED: NS IV 500 ML 500 ML IV STA (10:23)
[2020-05-25 10:28] LABS: BASOPHILS # (AUTO) 0.1 10^3/uL (0.0-0.1); BASOPHILS % (AUTO) 1 % (0-10); EOSINOPHILS # (AUTO) 0.1 10^3/uL (0.0-0.3); EOSINOPHILS % (AUTO) 1 % (0-10); HEMATOCRIT 38 % (35-52); HEMOGLOBIN 12.2 G/DL (11.5-16.0); LYMPHOCYTES # (AUTO) 3.2 X 10^3 (1.0-4.0); LYMPHOCYTES % (AUTO) 30 % (12-44); MEAN CORPUSCULAR HEMOGLOBIN 31 PG (25-34); MEAN CORPUSCULAR HGB CONC 32 G/DL (32-36); MEAN CORPUSCULAR VOLUME 95 FL (80-99); MEAN PLATELET VOLUME 10.7 FL (7.4-10.4); MONOCYTES # (AUTO) 0.9 X 10^3 (0.0-1.0); MONOCYTES % (AUTO) 8 % (0-12); NEUTROPHILS # (AUTO) 6.2 X 10^3 (1.8-7.8); NEUTROPHILS % (AUTO) 59 % (42-75); PLATELET COUNT 239 10^3/uL (130-400); WHITE BLOOD COUNT 10.4 10^3/uL (4.3-11.0)
[2020-05-25 10:37] LABS: PROTHROMBIN TIME PATIENT 13.8 SEC (12.2-14.7)
[2020-05-25 10:47] LABS: POTASSIUM 3.6 MMOL/L (3.6-5.0)
[2020-05-25 10:48] LABS: BILIRUBIN,TOTAL 0.3 MG/DL (0.1-1.0); CALCIUM 9.6 MG/DL (8.5-10.1); CREATININE SERUM 0.94 MG/DL (0.60-1.30); MAGNESIUM 2.2 MG/DL (1.6-2.4); TOTAL PROTEIN 6.9 GM/DL (6.4-8.2)
--- NOTE | 2020-05-25 11:07 | Diagnostic Imaging Report ---
Clinical Indications: Patient fell like she was going to pass out. Exam: Portable chest x-ray upright view. Comparisons: Chest x-ray dated 05/08/2020. Findings: Lungs/pleura: Hyperinflated lungs are seen. There is stable increased lung markings throughout both lungs. There is no interval lung infiltrate. There is no pneumothorax. There is no pleural effusion. Mediastinum: Unremarkable. Pulmonary vasculature: Unremarkable. Heart: There is stable mild cardiomegaly. Mitral annular calcification seen overlying the region of the heart. Bones/extrathoracic soft tissue: Unremarkable. Impression: 1: Stable chest x-ray exam with no interval radiographic evidence of acute cardiopulmonary process. 2: COPD lung changes. Dictated by: Dictated on workstation # [id number]
[2020-05-25] MEDS ORDERED: HEParin DRIP 25000 UNIT/500ML 500 ML IV ONE (11:45)
[2020-05-25 11:53] LABS: BILIRUBIN,URINE NEGATIVE (NEGATIVE); CLARITY,URINE CLEAR; COLOR,URINE YELLOW; GLUCOSE, URINE (UA) NEGATIVE (NEGATIVE); KETONES,URINE NEGATIVE (NEGATIVE); LEUKOCYTE ESTERASE ,URINE NEGATIVE (NEGATIVE); NITRITE,URINE NEGATIVE (NEGATIVE); PH,URINE 6.5 (5-9); PROTEIN,URINE NEGATIVE (NEGATIVE)
[2020-05-25 11:54] LABS: BACTERIA,URINE NEGATIVE /HPF; WBC,URINE 0-2 /HPF; YEAST,URINE FEW /HPF
[2020-05-25] MEDS ORDERED: NS (IVPB) 100 ML ONE (11:58)
[2020-05-25 13:01] VITALS: BP 138/60
== END 2020-05-25 13:00 | disposition short-term general hospital (02) ==
LOC: EDUNIT# 09:48 → ER FS 09:50
DX: I21.4 Non-ST elevation (NSTEMI) myocardial infarction (principal); R55 Syncope and collapse; I48.91 Unspecified atrial fibrillation; I25.10 Atherosclerotic heart disease of native coronary artery without angina pectoris; E78.00 Pure hypercholesterolemia, unspecified; I10 Essential (primary) hypertension; R79.89 Other specified abnormal findings of blood chemistry; F17.210 Nicotine dependence, cigarettes, uncomplicated; Z79.82 Long term (current) use of aspirin
CPT/HCPCS: 36415; 71045; 80053; 81000; 83735; 83880; 84484; 85025; 85610; 85730; 93005; 93041

== ENCOUNTER → 2020-05-29 | Outpatient (CLI) | payer MEDICARE | LOC: WOUNDCARE 14:44 | PROVIDERS: ATTEND Surgery | DX: T81.31XA Disruption of external operation (surgical) wound, not elsewhere classified, initial encounter (principal); I96 Gangrene, not elsewhere classified; L97.522 Non-pressure chronic ulcer of other part of left foot with fat layer exposed; I70.245 Atherosclerosis of native arteries of left leg with ulceration of other part of foot; T65.222A Toxic effect of tobacco cigarettes, intentional self-harm, initial encounter; F17.218 Nicotine dependence, cigarettes, with other nicotine-induced disorders; Z89.412 Acquired absence of left great toe | CPT/HCPCS: 99212 ==

== ENCOUNTER → 2020-06-05 | Outpatient (CLI) | payer MEDICARE | LOC: WOUNDCARE 14:19 | PROVIDERS: ATTEND Surgery | DX: I70.262 Atherosclerosis of native arteries of extremities with gangrene, left leg (principal); L97.522 Non-pressure chronic ulcer of other part of left foot with fat layer exposed; T65.222A Toxic effect of tobacco cigarettes, intentional self-harm, initial encounter; F17.218 Nicotine dependence, cigarettes, with other nicotine-induced disorders; T81.31XA Disruption of external operation (surgical) wound, not elsewhere classified, initial encounter; Z89.412 Acquired absence of left great toe | CPT/HCPCS: 99212 ==

== ENCOUNTER → 2020-06-08 | Outpatient (CLI) | payer MEDICARE ==
[2020-06-08 11:20] LABS: BASOPHILS % (AUTO) 1 % (0-10); EOSINOPHILS # (AUTO) 0.1 10^3/uL (0.0-0.3); EOSINOPHILS % (AUTO) 1 % (0-10); HEMATOCRIT 37 % (35-52); HEMOGLOBIN 11.8 G/DL (11.5-16.0); LYMPHOCYTES # (AUTO) 2.1 X 10^3 (1.0-4.0); LYMPHOCYTES % (AUTO) 33 % (12-44); MEAN CORPUSCULAR HEMOGLOBIN 31 PG (25-34); MEAN CORPUSCULAR HGB CONC 32 G/DL (32-36); MEAN CORPUSCULAR VOLUME 97 FL (80-99); MONOCYTES # (AUTO) 0.6 X 10^3 (0.0-1.0); MONOCYTES % (AUTO) 9 % (0-12); NEUTROPHILS # (AUTO) 3.5 X 10^3 (1.8-7.8); NEUTROPHILS % (AUTO) 56 % (42-75); PLATELET COUNT 180 10^3/uL (130-400); WHITE BLOOD COUNT 6.2 10^3/uL (4.3-11.0)
== END ==
LOC: LAB FS 11:07
PROVIDERS: ATTEND Family Medicine
DX: L03.116 Cellulitis of left lower limb (principal); K92.0 Hematemesis
CPT/HCPCS: 36415; 85025

== ENCOUNTER → 2020-06-12 | Outpatient (CLI) | payer MEDICARE | LOC: WOUNDCARE 14:09 | PROVIDERS: ATTEND Surgery | DX: L03.116 Cellulitis of left lower limb (principal); T81.31XA Disruption of external operation (surgical) wound, not elsewhere classified, initial encounter; L97.522 Non-pressure chronic ulcer of other part of left foot with fat layer exposed; I70.245 Atherosclerosis of native arteries of left leg with ulceration of other part of foot; T65.222A Toxic effect of tobacco cigarettes, intentional self-harm, initial encounter; F17.218 Nicotine dependence, cigarettes, with other nicotine-induced disorders; Z89.512 Acquired absence of left leg below knee | CPT/HCPCS: 99212 ==

== ENCOUNTER → 2020-06-19 | Outpatient (CLI) | payer MEDICARE | LOC: WOUNDCARE 12:20 | PROVIDERS: ATTEND Surgery | DX: T81.31XA Disruption of external operation (surgical) wound, not elsewhere classified, initial encounter (principal); L97.522 Non-pressure chronic ulcer of other part of left foot with fat layer exposed; I70.235 Atherosclerosis of native arteries of right leg with ulceration of other part of foot; T65.222A Toxic effect of tobacco cigarettes, intentional self-harm, initial encounter; F17.218 Nicotine dependence, cigarettes, with other nicotine-induced disorders; Z89.412 Acquired absence of left great toe | CPT/HCPCS: 99212 ==

== ENCOUNTER → 2020-07-03 | Outpatient (CLI) | payer MEDICARE | LOC: WOUNDCARE 12:45 | PROVIDERS: ATTEND Surgery | DX: T81.31XA Disruption of external operation (surgical) wound, not elsewhere classified, initial encounter (principal); I96 Gangrene, not elsewhere classified; L97.522 Non-pressure chronic ulcer of other part of left foot with fat layer exposed; I70.245 Atherosclerosis of native arteries of left leg with ulceration of other part of foot; T65.222A Toxic effect of tobacco cigarettes, intentional self-harm, initial encounter; F17.218 Nicotine dependence, cigarettes, with other nicotine-induced disorders; Z89.412 Acquired absence of left great toe | CPT/HCPCS: 99212 ==

== ENCOUNTER → 2020-07-17 | Outpatient (CLI) | payer MEDICARE | LOC: WOUNDCARE 12:32 | PROVIDERS: ATTEND Surgery | DX: T81.31XA Disruption of external operation (surgical) wound, not elsewhere classified, initial encounter (principal); I96 Gangrene, not elsewhere classified; L97.523 Non-pressure chronic ulcer of other part of left foot with necrosis of muscle; I70.245 Atherosclerosis of native arteries of left leg with ulceration of other part of foot; T65.222A Toxic effect of tobacco cigarettes, intentional self-harm, initial encounter; F17.218 Nicotine dependence, cigarettes, with other nicotine-induced disorders; Z89.412 Acquired absence of left great toe | CPT/HCPCS: 99212 ==

== ENCOUNTER → 2020-07-24 | Outpatient (CLI) | payer MEDICARE | LOC: WOUNDCARE 12:53 | PROVIDERS: ATTEND Surgery | DX: L03.116 Cellulitis of left lower limb (principal); T81.31XA Disruption of external operation (surgical) wound, not elsewhere classified, initial encounter; L97.522 Non-pressure chronic ulcer of other part of left foot with fat layer exposed; I70.245 Atherosclerosis of native arteries of left leg with ulceration of other part of foot; T65.222A Toxic effect of tobacco cigarettes, intentional self-harm, initial encounter; I96 Gangrene, not elsewhere classified; F17.218 Nicotine dependence, cigarettes, with other nicotine-induced disorders; Z89.412 Acquired absence of left great toe | CPT/HCPCS: 99212 ==

== ENCOUNTER → 2020-11-29 | Outpatient (CLI) | payer MEDICARE | LOC: WOUNDCARE 13:47 | PROVIDERS: ATTEND Surgery | DX: I70.245 Atherosclerosis of native arteries of left leg with ulceration of other part of foot (principal); L97.524 Non-pressure chronic ulcer of other part of left foot with necrosis of bone; T65.222D Toxic effect of tobacco cigarettes, intentional self-harm, subsequent encounter; F17.218 Nicotine dependence, cigarettes, with other nicotine-induced disorders | CPT/HCPCS: 99212 ==

== ENCOUNTER → 2020-12-06 | Outpatient (CLI) | payer MEDICARE | LOC: WOUNDCARE 14:04 | PROVIDERS: ATTEND Family Medicine | DX: I70.245 Atherosclerosis of native arteries of left leg with ulceration of other part of foot (principal); L97.524 Non-pressure chronic ulcer of other part of left foot with necrosis of bone; T65.222D Toxic effect of tobacco cigarettes, intentional self-harm, subsequent encounter; I96 Gangrene, not elsewhere classified; F17.218 Nicotine dependence, cigarettes, with other nicotine-induced disorders | CPT/HCPCS: 99213 ==

== ENCOUNTER → 2020-12-11 | Outpatient (CLI) | payer MEDICARE | LOC: WOUNDCARE 14:57 | PROVIDERS: ATTEND Family Medicine | DX: I70.245 Atherosclerosis of native arteries of left leg with ulceration of other part of foot (principal); L97.524 Non-pressure chronic ulcer of other part of left foot with necrosis of bone; T65.222D Toxic effect of tobacco cigarettes, intentional self-harm, subsequent encounter; F17.218 Nicotine dependence, cigarettes, with other nicotine-induced disorders; L97.211 Non-pressure chronic ulcer of right calf limited to breakdown of skin; I89.0 Lymphedema, not elsewhere classified | CPT/HCPCS: 99213 ==

== ENCOUNTER → 2020-12-25 | Outpatient (CLI) | payer MEDICARE | LOC: WOUNDCARE 12:14 | PROVIDERS: ATTEND Family Medicine | DX: I70.245 Atherosclerosis of native arteries of left leg with ulceration of other part of foot (principal); L97.524 Non-pressure chronic ulcer of other part of left foot with necrosis of bone; T65.222D Toxic effect of tobacco cigarettes, intentional self-harm, subsequent encounter; L97.211 Non-pressure chronic ulcer of right calf limited to breakdown of skin; I89.0 Lymphedema, not elsewhere classified; L03.115 Cellulitis of right lower limb; I96 Gangrene, not elsewhere classified; F17.218 Nicotine dependence, cigarettes, with other nicotine-induced disorders | CPT/HCPCS: A6197; G0463; 99213 ==

== ENCOUNTER → 2020-12-28 | Outpatient (CLI) | payer MEDICARE ==
[2020-12-28 11:10] LABS: ALBUMIN 3.7 GM/DL (3.2-4.5); BILIRUBIN,TOTAL 0.3 MG/DL (0.1-1.0); CALCIUM 8.9 MG/DL (8.5-10.1); CREATININE SERUM 0.97 MG/DL (0.60-1.30); POTASSIUM 4.1 MMOL/L (3.6-5.0); TOTAL PROTEIN 6.2 GM/DL (6.4-8.2)
== END ==
LOC: LAB FS 08:22
PROVIDERS: ATTEND Physician Assistant
DX: E78.2 Mixed hyperlipidemia (principal)
CPT/HCPCS: 36415; 80053; 80061

== ENCOUNTER → 2021-01-02 | Outpatient (CLI) | payer MEDICARE | LOC: WOUNDCARE 14:33 | PROVIDERS: ATTEND Family Medicine | DX: I70.262 Atherosclerosis of native arteries of extremities with gangrene, left leg (principal); L97.524 Non-pressure chronic ulcer of other part of left foot with necrosis of bone; T65.222D Toxic effect of tobacco cigarettes, intentional self-harm, subsequent encounter; F17.218 Nicotine dependence, cigarettes, with other nicotine-induced disorders; L97.211 Non-pressure chronic ulcer of right calf limited to breakdown of skin; I89.0 Lymphedema, not elsewhere classified; L03.115 Cellulitis of right lower limb | CPT/HCPCS: 87070; 87205; G0463; 99213 ==

== ENCOUNTER → 2021-01-15 | Outpatient (CLI) | payer MEDICARE | LOC: WOUNDCARE 13:07 | PROVIDERS: ATTEND Family Medicine | DX: I70.245 Atherosclerosis of native arteries of left leg with ulceration of other part of foot (principal); I96 Gangrene, not elsewhere classified; L97.524 Non-pressure chronic ulcer of other part of left foot with necrosis of bone; T65.222D Toxic effect of tobacco cigarettes, intentional self-harm, subsequent encounter; L97.211 Non-pressure chronic ulcer of right calf limited to breakdown of skin; I89.0 Lymphedema, not elsewhere classified; L03.115 Cellulitis of right lower limb; F17.218 Nicotine dependence, cigarettes, with other nicotine-induced disorders | CPT/HCPCS: A6197; G0463; 99213 ==

== ENCOUNTER → 2021-01-22 | Outpatient (CLI) | payer MEDICARE | LOC: WOUNDCARE 12:51 | PROVIDERS: ATTEND Family Medicine | DX: I70.245 Atherosclerosis of native arteries of left leg with ulceration of other part of foot (principal); L97.524 Non-pressure chronic ulcer of other part of left foot with necrosis of bone; T65.222D Toxic effect of tobacco cigarettes, intentional self-harm, subsequent encounter; L97.211 Non-pressure chronic ulcer of right calf limited to breakdown of skin; I89.0 Lymphedema, not elsewhere classified; L03.115 Cellulitis of right lower limb; I70.232 Atherosclerosis of native arteries of right leg with ulceration of calf; I96 Gangrene, not elsewhere classified; F17.218 Nicotine dependence, cigarettes, with other nicotine-induced disorders | CPT/HCPCS: 99213 ==

== ENCOUNTER → 2021-01-30 | Outpatient (CLI) | payer MEDICARE | LOC: WOUNDCARE 13:21 | PROVIDERS: ATTEND Family Medicine | DX: I70.245 Atherosclerosis of native arteries of left leg with ulceration of other part of foot (principal); L97.514 Non-pressure chronic ulcer of other part of right foot with necrosis of bone; I96 Gangrene, not elsewhere classified; T65.222D Toxic effect of tobacco cigarettes, intentional self-harm, subsequent encounter; F17.218 Nicotine dependence, cigarettes, with other nicotine-induced disorders; L97.211 Non-pressure chronic ulcer of right calf limited to breakdown of skin; I89.0 Lymphedema, not elsewhere classified; L03.116 Cellulitis of left lower limb; I70.232 Atherosclerosis of native arteries of right leg with ulceration of calf | CPT/HCPCS: 99214 ==

== ENCOUNTER 2021-06-15 17:35 | Emergency (ER) | payer MEDICARE ==
[~2021-06-15] VITALS: Ht 167.7 cm; Wt 50.3 kg
[2021-06-15] MEDS ORDERED: NS IV 1000 ML 1,000 ML IV STA ×3 (17:42→19:37)
[2021-06-15] MEDS ORDERED: fentaNYL INJ 100 MCG/2 ML AMP IVP STA ×2 (17:42→18:35)
[2021-06-15] MEDS ORDERED: ONDANSETRON 4 MG/2 ML (SDV) Z0FRAN IVP STA (17:42)
[2021-06-15 17:56] LABS: BASOPHILS # (AUTO) 0.1 10^3/uL (0.0-0.1); BASOPHILS % (AUTO) 0 % (0-10); EOSINOPHILS % (AUTO) 0 % (0-10); HEMATOCRIT 40 % (35-52); HEMOGLOBIN 11.8 g/dL (11.5-16.0); LYMPHOCYTES # (AUTO) 0.9 10^3/uL (1.0-4.0); LYMPHOCYTES % (AUTO) 3 % (12-44); MEAN CORPUSCULAR HEMOGLOBIN 22 pg (25-34); MEAN CORPUSCULAR HGB CONC 30 g/dL (32-36); MEAN CORPUSCULAR VOLUME 76 fL (80-99); MEAN PLATELET VOLUME 10.5 fL (9.0-12.2); MONOCYTES # (AUTO) 0.5 10^3/uL (0.0-1.0); MONOCYTES % (AUTO) 2 % (0-12); NEUTROPHILS # (AUTO) 26.2 10^3/uL (1.8-7.8); NEUTROPHILS % (AUTO) 94 % (42-75); PLATELET COUNT 266 10^3/uL (130-400); WHITE BLOOD COUNT 27.8 10^3/uL (4.3-11.0)
--- NOTE | 2021-06-15 17:56 | ED Abdominal Pain ---
General Stated Complaint: ABD PAIN Source of Information: Patient, EMS, Family, Old Records History of Present Illness Date Seen by Provider: Jun 15, 2021 Time Seen by Provider: 17:35 Initial Comments 85-year-old female presenting with complaints of diffuse abdominal pain. She has the pain come on around noon and has been constant since then. She states that pain is 10 out of 10. She also has had nausea and vomiting with this. She does have a history of constipation and did take a laxative to help her have a bowel movement. She had a bowel movement this morning before any of this pain started. She denies having severe abdominal pain like this in the past. 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 She was released on the and returned here to [place]. She states that she had been doing well until noon when she had sudden onset of abdominal pain. She denies any pain or burning with urination, fever, chills, diarrhea, blood in her urine, blood in her stool. Timing/Duration: 4-6 Hours Severity/Quality: Severe Location: Generalized Abdomen Activities at Onset: None Modifying Factors: Worsens With Movement, Worsens With Palpation Associated Symptoms: No Back Pain, No Chest Pain, No Diaphoresis, No Fever/Chills, No Fatigue, No Headache, No Heartburn; Nausea/Vomiting; No Rash, No Shortness of Air, No Swelling/Mass in Abdomen, No Syncope; Weakness (Generalized) Allergies and Home Medications Allergies Coded Allergies: No Known Drug Allergies (Unverified , 12/27/18) Patient Home Medication List Home Medication List Reviewed: Yes Amiodarone HCl (Amiodarone HCl) 200 Mg Tablet, 200 MG PO DAILY, (Reported) Entered as Reported by: BENJI ESCALANTE on 06/15/211846 Last Action: New Order Apixaban (Eliquis) 2.5 Mg Tablet, 2.5 MG PO BID, (Reported) Entered as Reported by: BENJI ESCALANTE on 06/15/211846 Last Action: New Order Clopidogrel Bisulfate (Plavix) 75 Mg Tablet, 75 MG PO DAILY, (Reported) Entered as Reported by: JUAN HOPKINS on 12/27/18 8368 Last Action: Reviewed Doxycycline Hyclate (Doxycycline Hyclate) 100 Mg Capsule, 100 MG PO BID, (Reported) Entered as Reported by: BENJI ESCALANTE on 06/15/211846 Last Action: New Order Furosemide (Furosemide) 40 Mg Tablet, 40 MG PO PRN, (Reported) Entered as Reported by: BENJI ESCALANTE on 06/15/211846 Last Action: New Order Gentamicin Sulfate (Gentamicin Sulfate) 0.1 % Oint...g., 30 GM TP TID PRN for prn, (Reported) Entered as Reported by: BENJI ESCALANTE on 06/15/211846 Last Action: New Order Linaclotide (Linzess) 290 Mcg Capsule, 290 MCG PO DAILY, (Reported) Entered as Reported by: BENJI ESCALANTE on 06/15/211846 Last Action: Last Taken Edited Losartan Potassium (Losartan Potassium) 25 Mg Tablet, 12.5 MG PO DAILY, (R eported) Entered as Reported by: BENJI ESCALANTE on 06/15/211846 Last Action: New Order Metoprolol Succinate (Metoprolol Succinate) 50 Mg Tab.er.24h, 50 MG PO DAILY, (Reported) Entered as Reported by: BENJI ESCALANTE on 06/15/211846 Last Action: New Order Ondansetron (Ondansetron Odt) 4 Mg Tab.rapdis, 4 MG PO Q8H PRN for prn, (Reported) Entered as Reported by: BENJI ESCALANTE on 06/15/211846 Last Action: New Order Oxycodone HCl (Oxycodone HCl) 5 Mg Tablet, 5 MG PO Q6H PRN for PAIN-MODERATE (5- 7), (Reported) Entered as Reported by: BENJI ESCALANTE on 06/15/211846 Last Action: New Order Potassium Chloride (K-Tab ER) 20 Meq Tablet.er, 20 MEQ PO DAILY PRN for prn, (Reported) Entered as Reported by: BENJI ESCALANTE on 06/15/211846 Last Action: Last Taken Edited Rosuvastatin Calcium (Crestor) 20 Mg Tablet, 20 MG PO DAILY, (Reported) Entered as Reported by: ANA BRUMFIELD on 04/23/201023 Last Action: Last Taken Edited Sennosides/Docusate Sodium (Sennosides-Docusate Sodium Tab) 8.6 Mg-50 Mg Tablet, 2 EACH PO BID PRN for CONSTIPATION-1ST LINE, (Reported) Entered as Reported by: BENJI ESCALANTE on 06/15/211846 Last Action: New Order Sulfamethoxazole/Trimethoprim (Bactrim Ds Tablet) 1 Each Tablet, 1 EACH PO BID, (Reported) Entered as Reported by: BENJI ESCALANTE on 06/15/211846 Last Action: New Order Discontinued Medications Amlodipine Besylate (Amlodipine Besylate) 5 Mg Tablet, 5 MG PO DAILY, (Reported) Discontinued Reason: Referral/FU Appt-Addtl Entered as Reported by: ANA BRUMFIELD on 04/23/20 1024 Last Action: Discontinued Aspirin (Aspirin EC) 81 Mg Tablet.dr, 81 MG PO DAILY, (Reported) Discontinued Reason: Referral/FU Appt-Addtl Entered as Reported by: ANA BRUMFIELD on 04/23/20 1024 Last Action: Discontinued Carvedilol (Carvedilol) 6.25 Mg Tablet, 6.25 MG PO BID, (Reported) Discontinued Reason: Referral/FU Appt-Addtl Entered as Reported by: ANA BRUMFIELD on 04/23/20 1024 Last Action: Discontinued Cephalexin (Cephalexin) 500 Mg Tablet, 500 MG PO TID Discontinued Reason: Referral/FU Appt-Addtl Prescribed by: MELQUIADES CARDONA on 04/25/20 1036 Last Action: Discontinued Hydrocodone Bit/Acetaminophen (HYDROcodone/APAP 5 MG/325 MG TAB) 1 Tab Tab, 1 EA PO Q4H PRN for PAIN-MODERATE (5-7) Discontinued Reason: Referral/FU Appt-Addtl Prescribed by: MELQUIADES CARDONA on 04/25/20 1037 Last Action: Discontinued Linaclotide (Linzess) 145 Mcg Capsule, 145 MG PO DAILY, (Reported) Discontinued Reason: Prescription changed Entered as Reported by: ANA BRUMFIELD on 04/23/20 1024 Losartan Potassium (Losartan Potassium) 25 Mg Tablet, 25 MG PO DAILY Discontinued Reason: Referral/FU Appt-Addtl Prescribed by: MELQUIADES CARDONA on 04/25/20 1036 Last Action: Discontinued Polyethylene Glycol 3350 (Polyethylene Glycol 3350) 17 Gm Powd.pack, 17 GM PO HS Discontinued Reason: Referral/FU Appt-Addtl Prescribed by: MELQUIADES CARDONA on 04/25/20 1036 Last Action: Discontinued Review of Systems Review of Systems Constitutional: No chills, No fever EENTM: No Symptoms Reported Respiratory: No Symptoms Reported Cardiovascular: No Symptoms Reported Gastrointestinal: See HPI Genitourinary: Denies Burning, Denies Frequency Musculoskeletal: no symptoms reported Skin: no symptoms reported Psychiatric/Neurological: Anxiety Past Nexfxdj-Eovbtg-Heazjb Hx Immunizations Up To Date Tetanus Booster (TDap): Unknown Seasonal Allergies Seasonal Allergies: Yes Past Medical History Surgery/Hospitalization HX: Chronic atrial fibrillation, coronary artery disease, high cholesterol, hypertension, peripheral vascular disease, TIA, chronic constipation, osteomyelitis with partial foot amputation Surgeries: Yes (LEFT CAROTID ARTERY, BILAT TKR, HEART SURGERY) Vascular Surgery Respiratory: No Currently Using CPAP: No Currently Using BIPAP: No Cardiac: Yes (PERIPHERAL VASCULAR DISEASE, 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) Atrial Fibrillation, Coronary Artery Disease, High Cholesterol, Hypertension, Peripheral Vascular Neurological: No Sexually Transmitted Disease: No HIV/AIDS: No Genitourinary: No Gastrointestinal: Yes Chronic Constipation Musculoskeletal: Yes Arthritis Endocrine: No HEENT: Yes (GLASSES, DENTURES) Loss of Vision: Denies Hearing Impairment: Hard of Hearing, Bilateral Hearing Aide Cancer: No Psychosocial: No Integumentary: No Blood Disorders: No Adverse Reaction/Blood Tranf: No (HAS HAD BLOOD WITH NO REACTION) Family Medical History No Pertinent Family Hx Physical Exam Vital Signs Vital Signs - First Documented 06/15/21 17:35 Temp 37.0 Pulse 117 Resp 20 B/P (MAP) 103/58 (73) Pulse Ox 100 O2 Delivery Room Air Capillary Refill : Height/Weight/BMI Height: '" Weight: lbs. oz. kg; 17.00 BMI Method: General Appearance: moderate distress, other (Appears older than stated age. Laying on bed with her eyes closed complaining of severe abdominal pain) HEENT: pharynx normal Neck: non-tender, full range of motion, supple, normal inspection Respiratory: chest non-tender, lungs clear, normal breath sounds Cardiovascular: tachycardia, irregularly irregular Gastrointestinal: soft, no pulsatile mass, abnormal bowel sounds (Hypoactive bowel sounds); No distended; guarding; No rebound; tenderness (Diffuse tenderness to palpation) Rectal: deferred Neurologic/Psychiatric: alert Skin: warm/dry Focused Exam Sepsis Stage: Sepsis Possible Source: GI Tract/Intra-Abdominal Lactate Level 06/15/21 17:47: Lactic Acid Level 3.11*H 06/15/21 20:06: Lactic Acid Level 2.75*H Time of Focused Exam: 19:00 Respiratory: Chest Non Tender, Lungs Clear, Normal Breath Sounds, No Accessory Muscle Use, No Respiratory Distress Cardiovascular: Irregularly Irregular, Tachycardia Capillary Refill: Less Than 3 Seconds Peripheral Pulses: 2+ Carotid (R), 2+ Carotid (L), 2+ Dorsalis Pedis (R), 2+ Left Dors-Pedis (L) Skin: normal color, warm/dry Lactic Acid Level Laboratory Tests Test 06/15/21 17:47 06/15/21 20:06 Lactic Acid Level 3.11 MMOL/L (0.50-2.00) *H 2.75 MMOL/L (0.50-2.00) *H Within 3hrs of presentation: Admin fluids, Admin ABX, Blood cultures prior to ABX's, Focus exam, Lactate level Progress/Results/Core Measures Results/Orders Lab Results Laboratory Tests Test 06/15/21 17:47 06/15/21 19:00 06/15/21 20:06 Range/Units White Blood Count 27.8 H 4.3-11.0 10^3/uL Red Blood Count 5.28 H 3.80-5.11 10^6/uL Hemoglobin 11.8 11.5-16.0 g/dL Hematocrit 40 35-52 % Mean Corpuscular Volume 76 L 80-99 fL Mean Corpuscular Hemoglobin 22 L 25-34 pg Mean Corpuscular Hemoglobin Concent 30 L 32-36 g/dL Red Cell Distribution Width 21.2 H 10.0-14.5 % Platelet Count 266 130-400 10^3/uL Mean Platelet Volume 10.5 9.0-12.2 fL Immature Granulocyte % (Auto) 1 % Neutrophils (%) (Auto) 94 H 42-75 % Lymphocytes (%) (Auto) 3 L 12-44 % Monocytes (%) (Auto) 2 0-12 % Eosinophils (%) (Auto) 0 0-10 % Basophils (%) (Auto) 0 0-10 % Neutrophils # (Auto) 26.2 H 1.8-7.8 10^3/uL Lymphocytes # (Auto) 0.9 L 1.0-4.0 10^3/uL Monocytes # (Auto) 0.5 0.0-1.0 10^3/uL Eosinophils # (Auto) 0.0 0.0-0.3 10^3/uL Basophils # (Auto) 0.1 0.0-0.1 10^3/uL Immature Granulocyte # (Auto) 0.2 H 0.0-0.1 10^3/uL Neutrophils % (Manual) 94 % Lymphocytes % (Manual) 4 % Monocytes % (Manual) 2 % Sodium Level 133 L 135-145 MMOL/L Potassium Level 4.8 3.6-5.0 MMOL/L Chloride Level 101 98-107 MMOL/L Carbon Dioxide Level 15 L 21-32 MMOL/L Anion Gap 17 H 5-14 MMOL/L Blood Urea Nitrogen 36 H 7-18 MG/DL Creatinine 1.65 H 0.60-1.30 MG/DL Estimat Glomerular Filtration Rate 30 BUN/Creatinine Ratio 22 Glucose Level 138 H 70-105 MG/DL Lactic Acid Level 3.11 *H 2.75 *H 0.50-2.00 MMOL/L Calcium Level 10.1 8.5-10.1 MG/DL Corrected Calcium 10.0 8.5-10.1 MG/DL Total Bilirubin 0.8 0.1-1.0 MG/DL Aspartate Amino Transf (AST/SGOT) 53 H 5-34 U/L Alanine Aminotransferase (ALT/SGPT) 69 H 0-55 U/L Alkaline Phosphatase 194 H 40-136 U/L Total Protein 7.3 6.4-8.2 GM/DL Albumin 4.1 3.2-4.5 GM/DL Lipase 24 8-78 U/L SARS-CoV-2 RNA (RT-PCR) Not Detected Not Detecte My Orders Orders - FRANCISCO DEMPSEY MD Comprehensive Metabolic Panel (06/15/21 17:42) Lipase (06/15/21 17:42) Ua Culture If Indicated (06/15/21 17:42) Ed Iv/Invasive Line Start (06/15/21 17:42) Cbc With Automated Diff (06/15/21 17:42) Ct Abdomen/Pelvis Wo (06/15/21 17:42) Ns Iv 1000 Ml (Sodium Chloride 0.9%) (06/15/21 17:42) Ondansetron Injection (Zofran Injectio (06/15/21 17:42) Fentanyl Inj (Sublimaze Injection) (06/15/21 17:42) Blood Culture (06/15/21 17:42) Lactic Acid Analyzer (06/15/21 17:42) Manual Differential (06/15/21 17:47) Fentanyl Inj (Sublimaze Injection) (06/15/21 18:35) Ceftriaxone 1 Gm Pre-Mix (Rocephin 1 Gm (06/15/21 18:35) Straight Cath For Spec.-Adult (06/15/21 18:45) Covid 19 Inhouse Test (06/15/21 18:58) Ns Iv 1000 Ml (Sodium Chloride 0.9%) (06/15/21 19:09) Piperacillin Sodium/Tazobactam (Zosyn Vi (06/15/21 19:37) Ns Iv 1000 Ml (Sodium Chloride 0.9%) (06/15/21 19:37) Ct Angio Abdomen/Pelv W (06/15/21 19:47) Iohexol Injection (Omnipaque 350 Mg/Ml 1 (06/15/21 20:15) Received Contrast (Hold Metformin- Contr (06/15/21 20:15) Sodium Chloride Flush (Catheter Flush Sy (06/15/21 20:15) Ns (Ivpb) (Sodium Chloride 0.9% Ivpb Bag (06/15/21 20:15) Medications Given in ED Current Medications Medications Dose Ordered Sig/Kaela Route Start Time Stop Time Status Last Admin Dose Admin Iohexol 110 ml ONCE ONCE IV 06/15/21 20:15 06/15/21 20:16 DC 06/15/21 20:31 110 ML Sodium Chloride 10 ml NEEDED PRN IV 06/15/21 20:15 06/15/21 20:32 10 ML Sodium Chloride 100 ml ONCE ONCE IV 06/15/21 20:15 06/15/21 20:16 DC 06/15/21 20:32 100 ML Vital Signs/I&O 06/15/21 17:35 Temp 37.0 Pulse 117 Resp 20 B/P (MAP) 103/58 (73) Pulse Ox 100 O2 Delivery Room Air Progress Progress Note #1: Progress Note Obtain basic labs including blood cultures and lactic acid, urinalysis. Order CT scan of the abdomen pelvis without contrast since she had sudden onset of pain to evaluate for possible kidney stone versus diverticulitis versus colitis versus bowel obstruction versus ischemic bowel. Order IV fluids for hydration with normal saline 1 L. Fentanyl 25 mcg IV for pain, Zofran 4 mg IV for nausea. Progress Note #2: Time: 18:21 Progress Note Labs show elevated WBC count of 27.8 with Lactic acid of 3.1. She has elevated LFTs with AST 53, ALT 69, Alkaline Phosphatase 197 and BUN 36 with Cr 1.6 for GFR of 30. She is supposed to be taking Doxycycline and Bactrim from recent admit to [facility] in [place], [place], However, she never filled the prescription when she left the hospital. We will give IV fluids and order Rocephin for her elevated white blood cell count and lactic acid. With the CT scan of her abdomen and pelvis that showed findings for colitis, constipation. With her history of vascular disease there is concerned that the sudden onset of abdominal pain and colitis could be ischemic colitis so will check with family about admission for hospital that has vascular surgery. Her daughter requested [facility] and if they were not available we will could not manage the patient's condition then [facility] would be her second choice. Progress Note #3: Progress Note 8 I spoke with nurse practitioner Khadijah Rodriguez at [facility]. She accepted the patient on behalf of Dr. Weems but did request a COVID swab. 1932 nurse practitioner Khadijah Rodriguez called back and requested a CT angiogram before transfer stating that they do not have vascular surgery they only have interventional radiology to do some vascular procedures at [facility]. If she truly has ischemic bowel she would need to go to the hospital that has vascular surgery. Although she has a GFR of 30 she has received 2 L of fluid and will continue to get maintenance fluids. Will order the CT angiogram of the abdomen and pelvis and if it is not showing ischemic bowel then she could still go to [facility]. If ischemic bowel is evident then she would need to go to the hospital such as [facility] that would have vascular surgery Progress Note #4: Time: 21:[address] angiogram of the abdomen pelvis finally came back and shows decreased attenuation to the descending colon and sigmoid colon concerning for ischemic colitis. There is no definite blockage of arterial or venous system. Call placed to the [facility] transfer center to initiate transfer to higher level of care. Patient continues to be hemodynamically stable here and has had bowel movement with minimal improvement in her abdominal pain. 2[address] Dr. Bueno with [facility] transfer center called and took report on the patient. He accepted the patient in transfer to come to [facility]. They will call back once they have a bed assignment for the patient. Diagnostic Imaging Diagonstic Imaging: CT Plain Films/CT/US/NM/MRI: abdomen, pelvis Comments [facility] [place], [place] NAME: PEPPER CARR [facility] REC#: [id number] PT STATUS: REG ER : 1935 PHYSICIAN: FRANCISCO DEMPSEY MD ADMIT DATE: 06/15/21/ER FS Signed Date of Exam:06/15/21 CT ABDOMEN/PELVIS WO PROCEDURE: CT abdomen and pelvis without contrast. TECHNIQUE: Multiple contiguous axial images were obtained through the abdomen and pelvis without the use of intravenous contrast. Auto Exposure Controls were utilized during the CT exam to meet ALARA standards for radiation dose reduction. INDICATION: Diffuse abdominal pain. Nausea and vomiting. COMPARISON: None. FINDINGS: The heart is unremarkable. The lung bases are clear. Cholelithiasis is seen without CT evidence of acute cholecystitis. Nonspecific bilateral adrenal thickening is seen. No focal lesion. Bilateral nonobstructing renal calculi are seen. No hydronephrosis. The urinary bladder is unremarkable. The liver, spleen, and pancreas have a normal appearance. There is no pathologically enlarged mesenteric or retroperitoneal adenopathy. No evidence of bowel obstruction. A large amount of stool seen in the colon. There is wall thickening throughout the majority of the colon. There is no free fluid or free air. No acute osseous abnormalities. There is calcified aortic and iliac atherosclerotic plaque without aneurysm. There is no free air, loculated collection, or adenopathy in the pelvis. IMPRESSION: 1. Large amount of stool throughout the colon, suggestive of constipation. 2. Wall thickening throughout the majority of the colon with pericolonic inflammatory changes. Findings are suggestive of colitis. 3. Cholelithiasis. No CT evidence of acute cholecystitis. 4. Nonspecific bilateral adrenal thickening. Dictated by: Dictated on workstation # [id number] Dict: 06/15/211817 Trans: 06/15/211827 PJE [id number] Interpreted by: YOAV COTTRELL DO Electronically signed by: YOAV COTTRELL DO 06/15/211827 Reviewed: Reviewed by Me Diagonstic Imaging: CT (angiogram) Plain Films/CT/US/NM/MRI: abdomen, pelvis Comments [facility] [place] [place] NAME: PEPPER CARR [facility] REC#: [id number] PT STATUS: REG ER : 1935 PHYSICIAN: FRANCISCO DEMPSEY MD ADMIT DATE: 06/15/21/ER FS Signed Date of Exam:06/15/21 CT ANGIO ABDOMEN/PELV W PROCEDURE: CT angio abdomen/pelvis with. TECHNIQUE: Multiple contiguous axial images were obtained through the abdomen and pelvis after the uneventful bolus administration of intravenous contrast. Sagittal and coronal MIP reconstructions with then performed. All CT scans use one or more of the following dose optimizing techniques: automated exposure control, MA and/or KvP adjustment based on patient size and exam type or iterative reconstruction. INDICATION: Abdominal pain. Colitis. COMPARISON: CT performed earlier the same date. FINDINGS: The abdominal aorta is patent. The celiac trunk, SMA and bilateral renal arteries are patent. The FLORA is not visualized likely due to prior stenting of the distal abdominal aorta. There is collateral filling of more distal branches of the FLORA. The portal vein is patent. No evidence of venous thrombus. There is decreased enhancement within the bowel wall of the descending and sigmoid colon relative to the remainder of the colon. The remainder of the exam is unchanged compared to the prior exam 2 hours and 30 minutes ago. IMPRESSION: Relative decreased enhancement in the bowel wall of the descending and sigmoid colon. No focal venous or arterial occlusion is identified. Findings are concerning for ischemic colitis. Dictated by: Dictated on workstation # [id number] Dict: 06/15/212054 Trans: 06/15/212101 PJE [id number] Interpreted by: YOAV COTTRELL DO Electronically signed by: YOAV COTTRELL DO 06/15/212101 Reviewed: Reviewed by Me Departure Impression Primary Impression: Sepsis Qualified Codes: A41.9 - Sepsis, unspecified organism Additional Impressions: Diffuse abdominal pain Nausea and vomiting in adult patient Dehydration Colitis Constipation Qualified Codes: K59.04 - Chronic idiopathic constipation Acute ischemic colitis Disposition: XFER SHT-TRM HOSP Condition: Stable Transfer Transfer Reason: Exceeds level of care (Vascular surgery available for ischemic colitis) Time Spoke to Accepting Phy: 21:46 Transfer Progress Notes d/w Dr. Ambrose Mccray at [facility] and he accepted pt for transfer. Will call back once bed is available for patient. Transfer Facility: [facility] Method of Transfer: EMS Departure-Patient Inst. Referrals: [facility] MD (PCP/Family) Primary Care Physician FRANCISCO DEMPSEY MD Jun 15, 2021 17:56
[2021-06-15 18:12] LABS: BILIRUBIN,TOTAL 0.8 MG/DL (0.1-1.0); CALCIUM 10.1 MG/DL (8.5-10.1); CREATININE SERUM 1.65 MG/DL (0.60-1.30); POTASSIUM 4.8 MMOL/L (3.6-5.0)
[2021-06-15 18:13] LABS: ALBUMIN 4.1 GM/DL (3.2-4.5); TOTAL PROTEIN 7.3 GM/DL (6.4-8.2)
[2021-06-15 18:21] LABS: LYMPHOCYTES % (MANUAL) 4 %; MONOCYTES % (MANUAL) 2 %; NEUTROPHILS % (MANUAL) 94 %
--- NOTE | 2021-06-15 18:25 | Diagnostic Imaging Report ---
PROCEDURE: CT abdomen and pelvis without contrast. TECHNIQUE: Multiple contiguous axial images were obtained through the abdomen and pelvis without the use of intravenous contrast. Auto Exposure Controls were utilized during the CT exam to meet ALARA standards for radiation dose reduction. INDICATION: Diffuse abdominal pain. Nausea and vomiting. COMPARISON: None. FINDINGS: The heart is unremarkable. The lung bases are clear. Cholelithiasis is seen without CT evidence of acute cholecystitis. Nonspecific bilateral adrenal thickening is seen. No focal lesion. Bilateral nonobstructing renal calculi are seen. No hydronephrosis. The urinary bladder is unremarkable. The liver, spleen, and pancreas have a normal appearance. There is no pathologically enlarged mesenteric or retroperitoneal adenopathy. No evidence of bowel obstruction. A large amount of stool seen in the colon. There is wall thickening throughout the majority of the colon. There is no free fluid or free air. No acute osseous abnormalities. There is calcified aortic and iliac atherosclerotic plaque without aneurysm. There is no free air, loculated collection, or adenopathy in the pelvis. IMPRESSION: 1. Large amount of stool throughout the colon, suggestive of constipation. 2. Wall thickening throughout the majority of the colon with pericolonic inflammatory changes. Findings are suggestive of colitis. 3. Cholelithiasis. No CT evidence of acute cholecystitis. 4. Nonspecific bilateral adrenal thickening. Dictated by: Dictated on workstation # [id number]
[2021-06-15] MEDS ORDERED: cefTRIAXone 1 GM PRE-MIX 50 ML IV STA (18:35)
[2021-06-15] MEDS ORDERED: SENN1TAB33 PO (18:47)
[2021-06-15] MEDS ORDERED: POTA-53 PO (18:47)
[2021-06-15] MEDS ORDERED: SULF1TAB38 PO (18:47)
[2021-06-15] MEDS ORDERED: GENT30OI2 TP (18:47)
[2021-06-15] MEDS ORDERED: LINA290C PO (18:47)
[2021-06-15] MEDS ORDERED: METO50TA7 PO (18:47)
[2021-06-15] MEDS ORDERED: LOSA25TA41 PO (18:47)
[2021-06-15] MEDS ORDERED: AMIO200T65 PO (18:47)
[2021-06-15] MEDS ORDERED: FURO40TA4 PO (18:47)
[2021-06-15] MEDS ORDERED: OXYC5TAB PO (18:47)
[2021-06-15] MEDS ORDERED: DOXY100C5 PO (18:47)
[2021-06-15] MEDS ORDERED: APIX2.5T PO (18:47)
[2021-06-15] MEDS ORDERED: ONDA4TAB11 PO (18:47)
[2021-06-15] MEDS ORDERED: PIPERACILLIN SODIUM/TAZOBACTAM 4.5 GM in NS (IVPB) 100 ML IV STA (19:37)
[2021-06-15] MEDS ORDERED: CATHETER FLUSH 10 ML SYR IV PRN (20:15)
[2021-06-15] MEDS ORDERED: HOLD METFORMIN - RECEIVED CONTRAST 20 ML VIAL IV SCH (20:15)
[2021-06-15] MEDS ORDERED: IOHEXOL 350 MG/ML 150 ML (OMNIPAQUE 350) VIAL IV ONE (20:15)
[2021-06-15] MEDS ORDERED: NS 100 ML (IVPB) BAG IV ONE (20:15)
--- NOTE | 2021-06-15 21:01 | Diagnostic Imaging Report ---
PROCEDURE: CT angio abdomen/pelvis with. TECHNIQUE: Multiple contiguous axial images were obtained through the abdomen and pelvis after the uneventful bolus administration of intravenous contrast. Sagittal and coronal MIP reconstructions with then performed. All CT scans use one or more of the following dose optimizing techniques: automated exposure control, MA and/or KvP adjustment based on patient size and exam type or iterative reconstruction. INDICATION: Abdominal pain. Colitis. COMPARISON: CT performed earlier the same date. FINDINGS: The abdominal aorta is patent. The celiac trunk, SMA and bilateral renal arteries are patent. The FLORA is not visualized likely due to prior stenting of the distal abdominal aorta. There is collateral filling of more distal branches of the FLORA. The portal vein is patent. No evidence of venous thrombus. There is decreased enhancement within the bowel wall of the descending and sigmoid colon relative to the remainder of the colon. The remainder of the exam is unchanged compared to the prior exam 2 hours and 30 minutes ago. IMPRESSION: Relative decreased enhancement in the bowel wall of the descending and sigmoid colon. No focal venous or arterial occlusion is identified. Findings are concerning for ischemic colitis. Dictated by: Dictated on workstation # [id number]
[2021-06-15 23:30] VITALS: BP 83/58
== END 2021-06-15 23:30 | disposition short-term general hospital (02) ==
LOC: EDUNIT# 17:35 → ER FS 17:36
DX: A41.9 Sepsis, unspecified organism (principal); K52.89 Other specified noninfective gastroenteritis and colitis; K59.04 Chronic idiopathic constipation; Z20.822 Contact with and (suspected) exposure to COVID-19
CPT/HCPCS: 74174; 74176; 80053; 83605; 83690; 85007; 87040; 87636